=== PATIENT | male | born 1935 | race Caucasian/White ===

== ENCOUNTER 2019-10-04 01:39 | Day surgery (SDC) | payer MEDICARE, SELFPAY ==
[2019-09-20 08:46] VITALS: BMI 28.8
--- NOTE | 2019-10-02 16:13 | PM.IMHP ---
H&P: HPI History of Present Illness Chief complaint: Right Kidney Stone Narrative: Krishna Saldana is a 84 year old male who presented to the ER in mid-August, with hematuria. CT-abd/pelvis revealed an 11mm right ureteral stone at the right UVJ. The stone has failed to passed and he now presents for endoscopic manipulation. Review of Systems Constitutional: Constitutional: Denies chills, Denies fatigue, Denies fever(s) and Denies headache(s) Eyes: Eyes: Denies blurry vision ENT: Denies vertigo, Denies dizziness, Denies headache(s) and Denies sore throat Cardiovascular: Cardiovascular: Denies chest pain, Denies syncope, Denies lightheadedness, Denies palpitations, Denies dyspnea and Denies dyspnea on exertion Respiratory: Respiratory: Denies hemoptysis, Denies dyspnea and Denies dyspnea on exertion Gastrointestinal: Gastrointestinal: Denies melena, Denies bloating, Denies hematochezia, Denies change in bowel habits, Denies change in stool character, Denies constipation, Denies diarrhea and Denies vomiting Genitourinary: Genitourinary: Denies hematuria, Denies dysuria, Denies testicular pain, Denies urinary frequency, Denies urinary hesitancy and Denies urinary urgency Integumentary/Breasts: Skin/Breast: Denies pruritus, Denies lesions and Denies rash Neurologic: Denies confusion, Denies vertigo, Denies dizziness, Denies syncope and Denies headache(s) Psychiatric: Psychiatric: Denies anxiety, Denies change in appetite and Denies confusion Endocrine: Endocrine: Denies fatigue and Denies palpitations PMFSH Past Medical History Medical History Kidney stones Surgical History Surgical History No history of previous surgery Social History Social History Smoking status: Never smoker Gender identity (if verbalized by the patient): Male Meds Home Medications and Allergies Home Medications Medication Instructions Recorded Confirmed Type donepezil [Aricept] 10 mg PO HS 07/31/19 09/20/19 History hydrocodone-acetaminophen 1 tablet PO Q4H PRN #10 tablet 07/31/19 09/20/19 Rx levetiracetam [Keppra] 500 mg PO BID 07/31/19 09/20/19 History lisinopril 5 mg PO DAILY 07/31/19 09/20/19 History memantine 10 mg PO BID 07/31/19 09/20/19 History Allergies Allergy/AdvReac Type Severity Reaction Status Date / Time No Known Allergies Allergy Verified 09/20/19 08:37 Exam Const: General: healthy appearing, comfortable, no acute distress and well developed; No confusion Nutritional Appearance: well nourished Orientation/consciousness: patient oriented x3 and No confusion HENMT: Head: normocephalic and atraumatic Ears: external ears normal Face and sinus: normal facial exam Mouth: Yes lip normal Teeth and gingiva: dentition normal Eyes: General: appearance normal, both eyes and all related structures Alignment and Position: alignment normal Eyelids: eyelids normal Cornea: corneas normal Pupils: Equal, round and reactive pupils present EOM: EOMs intact bilaterally Neck: Neck: normal visual inspection, full ROM and no JVD Chest: Chest palpation & inspection: normal inspection of the chest Resp: Effort & Inspection: normal respiratory effort and no use of accessory muscles Auscultation: clear to auscultation bilaterally Cardio: Jugular venous distension: no JVD Rate: regular rate Rhythm: regular rhythm GI: Inspection: normal to inspection GI Palp: No abdominal tenderness, No Guarding due to palpation present (GI) and No Rebound tenderness present Auscultation: normal bowel sounds : General: Yes bladder normal to palpation and No CVA tenderness Back/Spine/Pelvis: Back: No CVA tenderness Skin: General skin exam: normal color and no rashes or lesions noted Neuro: General: patient oriented x3, no focal motor deficits and No confusion
[2019-10-04] VITALS (7 sets, daily range): BP systolic 108–136; BP diastolic 67–74; PULSE 50–58; RESP 12–20; TEMP 36.1–36.7; O2SAT 97–100
--- NOTE | 2019-10-04 06:36 | WPDHPUPDATE1 ---
History and Physical Update Update Date/Time: 10/04/19 06:36 History and Physical has been reviewed, including an updated exam of the patient. There are NO changes in the patient's condition. Risks, benefits, and alternatives have been discussed and questions answered. Patient agrees to proceed with procedure.
--- NOTE | 2019-10-04 07:07 | WPDANESEPPF ---
Anes - Initial Pre Proc Eval Procedure: Operation Date: 10/04/19 09:00 Proposed Procedures p Cystoscopy, Right Ureteroscopy, Right Stone Extraction - Ryan Nguyễn MD s Holmium Laser Lithotripsy - Ryan Nguyễn MD Date/Time: 10/04/19 07:07 Surgeon: Ryan Nguyễn MD Pre Op Diagnosis: Right Kidney Stone Patient Data Age: 84 Gender: M Height: 1.75 m Weight: 88.45 kg Allergies Allergy/AdvReac Type Severity Reaction Status Date / Time No Known Allergies Allergy Verified 09/20/19 08:37 Home Medications Medication Instructions Recorded Confirmed Type donepezil [Aricept] 10 mg PO HS 07/31/19 09/20/19 History hydrocodone-acetaminophen 1 tablet PO Q4H PRN #10 tablet 07/31/19 09/20/19 Rx levetiracetam [Keppra] 500 mg PO BID 07/31/19 09/20/19 History lisinopril 5 mg PO DAILY 07/31/19 09/20/19 History memantine 10 mg PO BID 07/31/19 09/20/19 History Patient hx anesthesia problems: none Family hx anesthesia problems: none PMFSH Past Medical History Medical History (Updated 10/04/19 @ 07:09 by Anthony Sutherland MD) Arthritis Dementia HTN (hypertension) Kidney stones Seizures DX 1999. LAST ONE 2016. TAKES KEPPRA Transient ischemic attack 1975 Surgical History Surgical History No history of previous surgery Social History Social History Smoking status: Never smoker Gender identity (if verbalized by the patient): Male Anes - Eval Final PreProcedure Day of Procedure 10/04/19 07:07 Patient weight: overweight Heart: regular rate and rhythm Lungs: clear to auscultation and normal air movement Airway: Mallampati scale class II Neurological: alert and oriented Last oral intake: >/= 8 hours ASA classification: III Emergent: no Anesthetic plan: proceed Anesthesia type and monitoring: general LMA Informed Consent: The patient's anesthetic plan and its attendant risks and benefits were discussed with the patient/family/POA. Questions were solicited and answers provided to the satisfaction of the patient/family/POA.
[2019-10-04] MEDS: LACTATED RINGERS 1,000 ML 30 ML IV CONT (07:18)
[2019-10-04] MEDS: ceFAZolin 2 GM/D5W 50 ML 2 GM/50 ML BAG IVPB (08:15)
[2019-10-04] MEDS: LIDOCAINE HCL 2% GEL UROJET 10 ML PKG MUCOUS MEM (08:35)
--- NOTE | 2019-10-04 08:44 | PM.PROC ---
Procedure Note - Detailed Date of procedure: 10/04/19 Pre-op diagnosis: Right Kidney Stone Post-op diagnosis: other (Bladder stone) Procedure performed: Cystoscopy with bladder stone extraction. Description of procedure: Patient is brought to the operative suite where he has prepped and draped in routine sterile fashion while in a dorsal lithotomy position after the uneventful induction of general LMA anesthetic. Nineteen F rigid cystoscope was placed in his urethra. He has no urethral strictures but I see his large, 1 cm calculus is now lodged in his prostatic urethra. The remainder of the bladder was endoscopically normal without additional foreign body or neoplasm. The bladder mucosa is without hyperemia or neoplasm. Using a 27 F resectoscope with loop I easily removed the urethral calcification. Because of the ease of this procedure and not to leave a White catheter. Patient tolerated the procedure well and was taken to the recovery room in good condition. Anesthesia: GLMA Surgeon: Ryan Nguyễn MD Estimated blood loss (mL): 0 Drains: No Packing: No Pathology: yes (Bladder stone) Complications: No immediate complications Condition: stable Disposition: other
--- NOTE | 2019-10-04 09:23 | SUR.PHASEI ---
0923; PT AWAKE AND ALERT. READY TO SEE FAMILY.
== END 2019-10-04 10:27 | disposition home or self-care (01) ==
PROVIDERS: PCP Family Medicine; Visit Provider Urology
PROC: (CPT 52352; principal; 2019-10-04 09:00)
DX: N21.0 Calculus in bladder (principal); I10 Essential (primary) hypertension; G40.909 Epilepsy, unspecified, not intractable, without status epilepticus; F03.90 Unspecified dementia, unspecified severity, without behavioral disturbance, psychotic disturbance, mood disturbance, and anxiety; M19.90 Unspecified osteoarthritis, unspecified site; Z86.73 Personal history of transient ischemic attack (TIA), and cerebral infarction without residual deficits
CPT/HCPCS: 52310; 82365; 88300; A9270; C1769; J0690; J1100; J2405; J2704; J3010; J7120

== ENCOUNTER 2021-01-21 13:34 | Emergency (ER) | payer MEDICARE, SELFPAY ==
--- NOTE | ~2021-01-21 | XR_ITS ---
EXAMINATION: XR chest 1V portable DATE: 01/21/2021 15:33 INDICATION: Dizziness. TECHNIQUE: A single frontal view of the chest was obtained. COMPARISON: Chest single view 11/24/2014, CT abdomen and pelvis 07/31/2019 FINDINGS: There is mild atelectasis at the lung bases. No pleural effusion or pneumothorax. The heart size is normal. There is a right shoulder arthroplasty. IMPRESSION: 1. Mild atelectasis at the lung bases. Reviewed, dictated and finalized at location A.
--- NOTE | ~2021-01-21 | CT_ITS ---
EXAMINATION: CT brain wo con DATE: 01/21/2021 15:24 INDICATION: Dizziness TECHNIQUE: Computed tomography (CT) of the head was performed without intravenous contrast. The dose- length product was 529.67 mGy-cm. Automated exposure control and iterative reconstruction technique w ere employed. COMPARISON: CT dated 01/30/2017 FINDINGS: No acute intracranial hemorrhage, infarction, mass or mass effect. No ventriculomegaly or m idline shift. Basilar cisterns are patent. There are scattered mild periventricular and subcortical w elton matter changes, most likely related to small vessel ischemic disease (microangiopathy). There is mild mucosal thickening of the ethmoid sinuses. Mastoids are pneumatized. No depressed skull fractur e. IMPRESSION: 1. No acute intracranial abnormality. 2: Chronic age-related findings. Reviewed, dictated and finalized at location B.
--- NOTE | 2021-01-21 13:36 | ECG_ITS ---
Measurements Intervals [place] Rate: 47 P: 67 GA: 166 QRS: 38 QRSD: 89 T: 50 QT: 452 QTc: 402 Interpretive Statements SINUS BRADYCARDIA EARLY PRECORDIAL R/S TRANSITION BASELINE ARTIFACT- I, II, III, AVR, AVL, V3 ABNORMAL ECG Electronically Signed On 01-21-2021 13:50:36 CDT by Ruben Guerrero D.O.
[2021-01-21 13:38] VITALS: BP 127/78; PULSE 49; RESP 16; TEMP 35.9; O2SAT 99
[2021-01-21 14:04] LABS: Basophils Absolute Auto 0.1 K/mm3 (0.0-0.1); Basophils Percent Auto 0.9 % (0.2-1.2); Eosinophils Absolute Auto 0.6 K/mm3 (0-0.3); Eosinophils Percent Auto 8.7 % (0-4.4); Hematocrit 42.2 % (42.0-52.0); Immature Granulocyte Absolute 0.03 K/mm3 (0.00-0.031); Immature Granulocyte Percent A 0.4 % (0-0.5); Lymphocytes Absolute Auto 0.98 K/mm3 (0.9-3.2); Lymphocytes Percent Auto 14.4 % (18.3-44.2); Mean Corpuscular HGB Conc 33.2 g/dl (32-36); Mean Corpuscular Hemoglobin 31.9 pg (26-34); Mean Corpuscular Volume 96.1 fl (80-100); Mean Platelet Volume 10.2 fl (7.4-10.4); Monocytes Absolute Auto 0.6 K/mm3 (0.1-0.6); Monocytes Percent Auto 9.4 % (2.6-8.5); Neutrophils Absolute Auto 4.5 K/mm3 (1.3-6.7); Neutrophils Percent Auto 66.2 % (45.5-73.1); Platelet Count Result 197 k/mm3 (150-375); Red Blood Count 4.39 M/mm3 (4.6-6.20); Red Cell Distribution Width 12.8 % (11.5-14.5); White Blood Count 6.8 K/mm3 (4.5-10.0)
[2021-01-21 14:14] LABS: Alanine Aminotransferase 21 U/L (4-50); Albumin Level 4.1 g/dL (3.5-5.1); Alkaline Phosphatase 80 U/L (38-126); Anion Gap 6 mmol/L (8-16); Aspartate Amino Transferase 34 U/L (17-59); Bilirubin,Total 0.7 mg/dL (0.2-1.3); Blood Urea Nitrogen 13 mg/dL (9-20); Calcium 10.2 mg/dL (8.4-10.2); Carbon Dioxide 27 mmol/L (22-30); Chloride 107 mmol/L (98-107); Estimated CRCL calculation 56 ml/min; Estimated Glomerular Filt Rate > 60; Glucose 106 mg/dL (75-110); Potassium 4.3 mmol/L (3.4-5.0); Sodium 140 mmol/L (137-145)
--- NOTE | 2021-01-21 14:59 | ED.DIZZY ---
HPI - Dizziness General Chief Complaint: Dizziness Stated Complaint: dizzy Time Seen by Provider: 01/21/21 14:38 Source: RN notes reviewed History of Present Illness HPI Narrative: Patient presents to emergency department from home for dizziness. Patient states the dizziness began approximately 2 hours ago states is worse with and he stands up in the room is spinning improved when he lays down states he has had intermittent issues over the past several weeks with dizziness but worse today he denies any numbness or tingling in extremities, vision changes, chest pain, shortness of breath or any other symptoms patient states that currently laying in bed he has no dizziness at this time Related Data Home Medications Medication Instructions Recorded Confirmed donepezil [Aricept] 10 mg PO HS 07/31/19 10/04/19 levetiracetam [Keppra] 500 mg PO BID 07/31/19 10/04/19 lisinopril 5 mg PO DAILY 07/31/19 10/04/19 memantine 10 mg PO BID 07/31/19 09/20/19 Allergies Allergy/AdvReac Type Severity Reaction Status Date / Time No Known Allergies Allergy Verified 09/20/19 08:37 Review of Systems Review of Systems: Narrative: Gen.: Denies fevers or chills Eyes: Denies eye pain or visual change ENT: Denies congestion Respiratory: Denies shortness of breath or cough CV: Denies chest pain or palpitations GI: Denies abdominal pain nausea, emesis or diarrhea Musculoskeletal: Denies back pain or muscle pain Neuro: See HPI Skin: Denies rash Except as documented, all other systems reviewed and negative PMFSH Past Medical History Medical History Arthritis Dementia HTN (hypertension) Kidney stones Seizures DX 1999. LAST ONE 2016. TAKES KEPPRA Transient ischemic attack 1975 Surgical History Surgical History No history of previous surgery Social History Social History Smoking status: Never smoker Gender identity (if verbalized by the patient): Male Exam Narrative: Exam Narrative: APPEARANCE: No acute distress, nontoxic, resting in bed HEENT: Normocephalic, atraumatic, OMM, TMs clear bilaterally EYES: PERRL, EOMI NECK: Supple, nontender, full range of motion without pain, no meningismus RESPIRATORY: No respiratory distress, clear to auscultation bilaterally with no rhonchi wheezing or rales CARDIOVASCULAR: RRR s murmur ABDOMINAL: Soft, nontender, nondistended MUSCULOSKELETAL: Moves all extremities. No clubbing, cyanosis or edema. NEURO: A and O ?3, following commands, speech normal, no facial droop,muscle strength 5 out of 5 bilateral upper and lower extremities SKIN:: Warm, dry. Normal Color PSYCHIATRIC: Normal affect/mood Course Course Emergency Course: Old record of the patient's bradycardia is consistent with prior Patient will get up and ambulate in the emergency department with no dizziness Long discussion with patient and it appears the patient's been having arm and episodes of dizziness for the past 3 to 4 months he has had no formal work-up for this I discussed with him following up with ENT patient has questionable UTI will start antibiotics and sent with meclizine Discussed with patient results of workup and diagnosis. Discussed need for follow-up with primary care, proper use of medication, and reasons to return to the emergency department. Patient understands and agrees to current treatment plan Vital Signs Vital signs: Vital Signs Temperature 96.7 F L 01/21/21 13:38 Pulse Rate 49 L 01/21/21 13:38 Respiratory Rate 16 01/21/21 13:38 Blood Pressure 127/78 01/21/21 13:38 Pulse Oximetry 99 01/21/21 13:38 Temperature 97.7 F 01/21/21 15:02 Pulse Rate 82 01/21/21 17:08 Respiratory Rate 20 01/21/21 17:08 Blood Pressure 113/67 01/21/21 17:08 Pulse Oximetry 93 01/21/21 17:08 MDM - Dizziness MDM Narrative Medica
[2021-01-21 15:02] VITALS: TEMP 36.5
[2021-01-21] MEDS: MECLIZINE HCL 12.5 MG TABLET PO (15:07)
[2021-01-21 15:25] VITALS: BP 123/84; PULSE 64
[2021-01-21 15:41] LABS: Add Urine Microscopic? YES; Appearance Urine Cloudy (Clear); Bacteria Urine Trace /hpf; Bilirubin Urine Negative (Negative); Blood Urine 3+ (Negative); Calcium Oxalate Crystals Urine Present /hpf; Color Urine Yellow (Yellow); Glucose Urine UA Negative (Negative); Ketones Urine Trace mg/dL (Negative); Leukocyte Esterase Ur Trace LEU/UL (Negative); Mucus Urine Heavy /lpf; Nitrate Urine Negative (Negative); Protein Urine 2+ mg/dL (Negative); RBC Urine >75 /hpf (0-2); Specific Grav Ur 1.026 (1.001-1.035); Squamous Epithelial Cell Urine Rare /hpf (Few)
[2021-01-21 17:08] VITALS: BP 113/67; PULSE 82; RESP 20; O2SAT 93
--- NOTE | 2021-01-21 17:09 | PC.NURSE ---
Patient ambulated with assistance, ER aware
[2021-01-21] MEDS: CIPROFLOXACIN 500 MG TAB PO (17:30)
[2021-01-21 17:41] VITALS: BP 126/73; PULSE 86; RESP 20; O2SAT 93
== END 2021-01-21 17:41 | disposition home or self-care (01) ==
PROVIDERS: Emergency Medicine; Emergency Provider Emergency Medicine; PCP Family Medicine
DX: N39.0 Urinary tract infection, site not specified (principal); R42 Dizziness and giddiness; I10 Essential (primary) hypertension; Z86.73 Personal history of transient ischemic attack (TIA), and cerebral infarction without residual deficits; G40.909 Epilepsy, unspecified, not intractable, without status epilepticus; F03.90 Unspecified dementia, unspecified severity, without behavioral disturbance, psychotic disturbance, mood disturbance, and anxiety
CPT/HCPCS: 36415; 70450; 71045; 80053; 81001; 85025; 87086; 93005; 99284; A9270

== ENCOUNTER 2021-09-29 08:51 | Outpatient (CLI) | payer MEDICARE, SELFPAY ==
--- NOTE | ~2021-09-29 | CT_ITS ---
EXAMINATION: CT abdomen pelvis wo/w con EXAM DATE: 09/29/2021 09:50 INDICATION: Hematuria. TECHNIQUE: Spiral CT of the abdomen and pelvis was performed without contrast. The patient was then injected with small bolus intravenous Omnipaque 350, followed by delay of approximately 10 minutes to allow collecting system to opacify. A post contrast scan abdomen and pelvis was performed during inj ection of remaining contrast. A total of 130 cc intravenous contrast was administered. The dose-dariela th product (DLP) for this examination was 1708.44 mGy-cm. The exposure was tailored according to pat ient size (auto mA exposure control), and iterative reconstruction (ASIR) was used as additional dose reduction technique. Comparison is made to prior examination from 07/31/2019. FINDINGS: There is a 2.1 cm calcification in the distal aspect of the left ureter, with moderate hydr oureter, but no caliectasis or delayed nephrogram. Does not appear to be obstructing at present. Petr tional right inferior calyceal stone or stones measuring 1.1 cm. There are bilateral renal cysts, lar gest on the right side. The kidneys enhance symmetrically. There are no suspicious renal lesions. The calyces and opacified portions of ureters are unremarkable, without filling defects or focal susp icious strictures. Some diffuse bladder wall thickening, could indicate chronic cystitis. Acute cyst itis not excludable. There is moderate prostatomegaly, prostate measuring 6 cm. The liver, spleen, adrenal glands and pancreas are unremarkable. Gallbladder is unremarkable. No bi liary obstruction. There is no retroperitoneal or pelvic lymphadenopathy. There is mild to moderat e scattered arteriosclerotic disease. No findings to suggest acute appendicitis.. There is moderate colonic diverticulosis. There is no ad jacent inflammatory change to suggest diverticulitis. The stomach and small bowel are unremarkable. There is expected amount of colonic stool. No free intraperitoneal gas. The heart is normal in si ze. There are no pericardial or pleural effusions. The lung bases are unremarkable. Moderate lumba r dextroscoliosis, moderate to severe disc disease. There are no osteoblastic or osteolytic lesions i dentified. 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 IMPRESSION: 1. Distal left ureteral 2 cm stone, moderate hydroureter but no caliectasis or delayed nephrogram. 2. Large right nephrolithiasis. 3. Moderate prostatomegaly. Chronic cystitis. 4. Moderate colonic diverticulosis. 5. Moderate lumbar dextroscoliosis. Reviewed, dictated and finalized at location B. ER HAND
--- NOTE | ~2021-09-29 | XR_ITS ---
EXAMINATION: XR abdomen/kub 1V EXAM DATE: 09/29/2021 09:10 INDICATION: Follow-up hematuria. TECHNIQUE: Frontal projection(s) of the abdomen for interpretation. Correlation is made to CT scan sa me date. Compared to prior x-ray from 08/06/2019 FINDINGS: There is a distal left ureteral 2 cm stone identified, increased in size compared to prior study. This was present on previous examination but has increased substantially in size. There is mo derate lumbar dextroscoliosis. Large right nephrolithiasis. Nonobstructive bowel gas pattern. IMPRESSION: 1. Large left distal ureteral stone identified. 2. Right nephrolithiasis. Reviewed, dictated and finalized at location G. GIOUS ACTIVITIES DIRECTOR
[2021-09-29 09:31] LABS: Estimated Glomerular Filt Rate > 60
== END 2021-09-29 08:52 | disposition home or self-care (01) ==
PROVIDERS: PCP Family Medicine; Visit Provider Nurse Practitioner Adult Health
DX: R31.9 Hematuria, unspecified (principal); N20.1 Calculus of ureter; N20.0 Calculus of kidney; N40.0 Benign prostatic hyperplasia without lower urinary tract symptoms; N30.21 Other chronic cystitis with hematuria; K57.90 Diverticulosis of intestine, part unspecified, without perforation or abscess without bleeding; M41.86 Other forms of scoliosis, lumbar region
CPT/HCPCS: 74018; 74178; Q9967

== ENCOUNTER 2021-10-01 00:54 | Day surgery (SDC) | payer MEDICARE, SELFPAY ==
[2021-09-30 12:19] VITALS: BMI 28.7
--- NOTE | 2021-09-30 13:32 | PC.NURSE ---
Report to the Outpatient Waiting Room, entrance under the green pavilion located off [facility], at time __0845 on date __10/01/21 . OR Time: ____1044 - You and your visitor will be asked a series of questions to screen for COVID 19 for your protection. - A mask is required within the hospital. Preoperative COVID Testing Requirements: No COVID Test needed if: (proof is required; if not received patient will have Rapid Test prior to entry) - Patient has received COVID Vaccine at least 14 days prior to procedure date or - Patient has positive COVID test result within last 90 days of surgery date. COVID Test needed if above criteria is not met If not COVID vaccinated a COVID test must be conducted within 72 hours of surgery and patient is asked to isolate self from time of testing until procedure. You will go to the [employer] [facility] for your COVID testing. The [employer] [facility] is located at the corner of [address] [facility]. You will only be called if COVID results are positive and your surgeon may reschedule your elective surgery date. Patients may have clear liquids (water, carbonated beverages, clear teas, apple juice) until 3 hours prior to surgery (0745 AM) with a maximum of 20 ounces. - No food from midnight until time of surgery - Infants may have breast milk until 4 hours before surgery, formula 6 hours prior to surgery. - Children will be allowed to drink immediately following surgery. If applicable, please bring a bottle or sippy cup to assist with drinking. Juice, water, soda, and popsicles are readily available. For infants on formula, please bring formula the day of surgery. Pacifiers are allowed. Take the following medications with a SIP of water the morning of surgery: __KEPPRA, MEMANTINE, PAIN PILL IF NEEDED__ Medications to discontinue per physician NONE Date to take last dose Please no make-up, nail occitan, hairspray, perfume, deodorant, or body powder the day of surgery. No jewelry (including any body piercings) or valuables the day of surgery, leave them at home. Please take a shower or bath the night before, or the morning of, surgery with an antibacterial soap. Wear comfortable, loose fitting clothing. Children are encouraged to wear pajamas. - Jewelry must be removed prior to entering the operating room. Rings and piercings that are not removed may be cut off. - The hospital will not accept responsibility for valuables. - Please leave all valuables, including medications, at home the day of surgery. If you are going home after surgery, a licensed bung driver must drive you home. - NO public transportation without another adult. - We recommend that an adult stay with you for 24 hours following discharge. - We also recommend that you do not drive, make important decision, drink alcoholic beverages, or take any drugs that were not prescribed by your health care provider for at least 24 hours after your discharge time. For Pediatric surgeries, we recommend two adults accompany the child home (only one inside the building at this time). One visitor will be allowed to accompany the patient into the hospital. Patients visitor will be instructed to remain with patient at all times or leave the building. We will allow the visitor to come back to the postoperative area when patient is ready. Follow any additional instructions given to you from your surgeon. Telephone instructions given to _PT'S SPOUSE and asked if any additional questions and then verbalized understanding. Patient advised to call surgeon office or pre surgery nurse liaison [phone] if any additional questions.
[2021-10-01] VITALS (11 sets, daily range): BP systolic 100–132; BP diastolic 56–77; PULSE 50–76; RESP 14–18; TEMP 36.4; O2SAT 96–100
--- NOTE | ~2021-10-01 | XR_ITS ---
EXAMINATION: XR retrograde pyelo w/stent LT EXAM DATE: 10/01/2021 11:25 INDICATION: LT RETRO/STENT STONE EXTRACTION . TECHNIQUE: Fluoroscopy used during XR retrograde pyelo w/stent LT performed by Dr. Ryan Nguyễn MD, urologist. The radiologist Jeff Fleming M.D. dictating this report of the image(s) available wa s not present for the procedure. Total fluoroscopic time of 39 seconds. The DAP for this procedure was 0.7 mGym2.cGycm2.radcm2. A total of 48 images sent to PACS from the exam. Cine run(s) available for review. Correlation is made to KUB from 09/29/2021. FINDINGS: Large left distal ureteral stone identified. Left ureter was cannulated and injected. There is severe left hydroureter. A double-J ureteral stent was placed. Correlate with procedure note. IMPRESSION: Distal left ureteral stone, severe hydroureter. Stent in position. Reviewed, dictated and finalized at location B. POSTING REPRESENTATIVE
--- NOTE | 2021-10-01 06:28 | WPDHPUPDATE1 ---
History and Physical Update Update Date/Time: 10/01/21 06:28 History and Physical has been reviewed, including an updated exam of the patient. There are NO changes in the patient's condition. Risks, benefits, and alternatives have been discussed and questions answered. Patient agrees to proceed with procedure.
[2021-10-01] MEDS: LACTATED RINGERS 1,000 ML 30 ML IV CONT ×2 (09:36→11:07)
--- NOTE | 2021-10-01 09:40 | WPDANESEPP ---
Anes - Eval Pre Procedure Procedure: Operation Date: 10/01/21 10:45 Proposed Procedures p Cystoscopy, Left Ureteroscopy, Left Retrograde Pyelogram, Left Stone Extraction, Left Stent Placement. - Ryan Nguyễn MD s Possible Holmium Laser Procedure - Ryan Nguyễn MD <Rohan Casas CRNA - Last Filed: 10/01/21 09:42> Date/Time: 10/01/21 09:40 <Rohan Casas CRNA - Last Filed: 10/01/21 09:42> Pre Op Diagnosis: left ureteral stone <Rohan Casas CRNA - Last Filed: 10/01/21 09:42> Patient Data Age: 86 Gender: M Height: 1.75 m Weight: 88.18 kg <Rohan Casas CRNA - Last Filed: 10/01/21 09:42> Allergies Allergy/AdvReac Type Severity Reaction Status Date / Time No Known Allergies Allergy Verified 10/01/21 09:43 <Rohan Casas CRNA - Last Filed: 10/01/21 09:42> Home Medications Medication Instructions Recorded Confirmed Type donepezil [Aricept] 10 mg PO HS 07/31/19 10/01/21 History levetiracetam [Keppra] 500 mg PO BID 07/31/19 10/01/21 History lisinopril 5 mg PO QAM 07/31/19 10/01/21 History memantine 10 mg PO BID 07/31/19 10/01/21 History hydrocodone-acetaminophen 1 - 2 tablet PO Q6H PRN #20 tablet 10/04/19 10/01/21 Rx <Rohan Casas CRNA - Last Filed: 10/01/21 09:42> Patient hx anesthesia problems: none <Olaf Molina MD - Last Filed: 10/01/21 09:53> Family hx anesthesia problems: none <Olaf Molina MD - Last Filed: 10/01/21 09:53> Results Review: All pre-operative results and documents have been reviewed as part of the pre-operative evaluation. <Rohan Casas CRNA - Last Filed: 10/01/21 09:42> [facility] Past Medical History Medical History: Medical History Arthritis Dementia Hearing loss, bilateral HTN (hypertension) Kidney stones Seizures DX 2000. LAST ONE 2017. TAKES KEPPRA Transient ischemic attack 1974 <Rohan Casas CRNA - Last Filed: 10/01/21 09:42> Surgical History Surgical History: Surgical History No history of previous surgery <Rohan Casas CRNA - Last Filed: 10/01/21 09:42> Social History Social History: Social History Smoking status: Never smoker Second hand tobacco smoke exposure: No Alcohol intake: never Substance use: never Substance use type: does not use Living arrangements: with family Gender identity (if verbalized by the patient): Male Spiritual care concerns: No <Rohan Casas CRNA - Last Filed: 10/01/21 09:42> Exam Day of Procedure 10/01/21 09:40 <Rohan Casas CRNA - Last Filed: 10/01/21 09:42> Patient weight: overweight <Olaf Molina MD - Last Filed: 10/01/21 09:53> Heart: regular rate and rhythm <Olaf Molina MD - Last Filed: 10/01/21 09:53> Lungs: clear to auscultation <Olaf Molina MD - Last Filed: 10/01/21 09:53> Airway: Mallampati scale class II <Olaf Molina MD - Last Filed: 10/01/21 09:53> Neurological: other (alert) <Olaf Molina MD - Last Filed: 10/01/21 09:53>
[2021-10-01] MEDS: ceFAZolin 2 GM/D5W 50 ML 2 GM/50 ML BAG IVPB (09:53)
--- NOTE | 2021-10-01 09:53 | WPDANESEFPP ---
Anes - Eval Final PreProcedure Day of Procedure 10/01/21 09:53 Patient weight: overweight Heart: regular rate and rhythm Lungs: clear to auscultation Airway: Mallampati scale class II Neurological: other (alert) Last oral intake: >/= 8 hours ASA classification: III Emergent: no Anesthetic plan: proceed Anesthesia type and monitoring: general LMA and standard monitoring Results Review: All pre-operative results and documents have been reviewed as part of the pre-operative evaluation. Informed Consent: The patient's anesthetic plan and its attendant risks and benefits were discussed with the patient/family/POA. Questions were solicited and answers provided to the satisfaction of the patient/family/POA.
--- NOTE | 2021-10-01 11:04 | W.PM.PROC2 ---
Procedure Note - Detailed Date of Procedure 10/01/21 Pre-op Diagnosis Left ureteral stone Post-op Diagnosis Same Procedure Performed Cystoscopy, left ureteroscopy with laser lithotripsy, stone extraction, retrograde pyelogram and left stent placement Surgeon Ryan Nguyễn MD Anesthesia General Description of Procedure The patient was brought to the operative suite where he is prepped and draped in a routine sterile fashion while in the dorsal lithotomy position after the uneventful induction of a general LMA anesthetic. A 19F rigid cystoscope was placed in the bladder. There are no urethral strictures. His prostatic urethra measures, approximately, 3.0cm with moderate median lobe enlargement. The bladder mucosa was endoscopically normal without hyperemia or neoplasm. There was a single, orthotopic ureteral orifice bilaterally. A 0.035 glidewire was advanced into the left renal pelvis under fluoroscopy. The distal ureter was dilated with an 8F/10F ureteral dilator. Ureteroscopy was undertaken with a short tapered semi-rigid ureteroscope. During ureteroscopy I fractured the very large stone (1-1.5cm) into smaller pieces using a 273 micron Holmium laser fiber with the Holmium laser. I was able to then extract all sizeable stone pieces using a 1.9F Escape, Nitinol, disposable stone basket. Due to the extent of this manipulation I did place a 4.8F double-J ureteral stent. The proximal coil of the stent was confirmed to be in the renal pelvis and the distal coil in the bladder. The patient's bladder was emptied and he was taken to the recovery room having tolerated this procedure well. Drains Yes Packing No Pathology Yes Complications No immediate complications Condition Stable Disposition PACU
--- NOTE | 2021-10-01 11:33 | SUR.PHASEI ---
1120; SMITH IS DRY AND EMPTY. SLIGHT BLEEDING FROM PENIS. ABDOMEN SOFT. DR DELANEY WALKED THRU PACU. NOTIFIED HIM OF DRY SMITH. WILL IRRIGATE WITH NS
[2021-10-01] MEDS: fentaNYL CITRATE INJ (*CRX) 100 MCG/2 ML VIAL 25 MCG IV PUSH ×4 (11:48→12:16)
--- NOTE | 2021-10-01 12:19 | SUR.PHASEI ---
PT MOANING AND GRIMACING MUCH LESS NOW. STATES PAIN TO PENIS IMPROVING
--- NOTE | 2021-10-01 12:24 | SUR.PHASEI ---
DR DELANEY AT BEDSIDE OBSERVING SMITH. KRISHNA URINE. NO CLOTS NOTED. DR DELANEY STATES SMITH MAY BE DC'D PRIOR TO GOING HOME TODAY. PT AWAKE. STATES PAIN MUCH BETTER NOW AND TOLERABLE.
--- NOTE | 2021-10-01 12:38 | SUR.PHASEI ---
SARAH DC'D INTACT
--- NOTE | 2021-10-17 13:56 | WPDURCON ---
Assessment and Plan Additional Plan 86M with UTI, urinary retention, bilateral ureteral stones, renal failure - proceed with cystoscopy with bilateral ureteral stent placement; will delay definitive stone treatment until his labs have stabilized and his infection can be treated - patient seems to understand and agree with plan; I tried to reach at [phone] but says number disconnected; she was here with him earlier and aware of plan [facility] Consult Note HPI Date Seen: 10/17/21 Requesting Physician: Dr. Moise, ED Primary Care Provider: Srinivasa Macias MD Consult Narrative Narrative: Krishna Saldana is a 86 year old male s/p left URS a few weeks ago with Dr Nguyễn. Came to ED. Bladder extremely full with bilateral hydro and bilateral distal ureteral stones. Catheter has been placed. Urine clearly infected. He's in renal failure with a creatinine of 4.5 (baseline 1.0 from about two weeks ago). Review of Systems Review of Systems: ROS unobtainable: Yes unobtainable due to mental status PMFSH Past Medical History Medical History Arthritis Dementia Hearing loss, bilateral HTN (hypertension) Kidney stones Seizures DX 1999. LAST ONE 2016. TAKES KEPPRA Transient ischemic attack 1974 Surgical History Surgical History No history of previous surgery Social History Social History Smoking status: Never smoker Second hand tobacco smoke exposure: No Alcohol intake: never Substance use: never Substance use type: does not use Gender identity (if verbalized by the patient): Male Spiritual care concerns: No Meds Home Medications and Allergies Home Medications Medication Instructions Recorded Confirmed Type donepezil [Aricept] 10 mg PO HS 07/31/19 10/01/21 History levetiracetam [Keppra] 500 mg PO BID 07/31/19 10/01/21 History lisinopril 5 mg PO QAM 07/31/19 10/01/21 History memantine 10 mg PO BID 07/31/19 10/01/21 History hydrocodone-acetaminophen 1 - 2 tablet PO Q6H PRN #20 tablet 10/04/19 10/01/21 Rx cephalexin 500 mg PO Q8H #9 cap 10/01/21 Rx hydrocodone-acetaminophen 1 - 2 tablet PO Q6H PRN #20 tablet 10/01/21 Rx Allergies Allergy/AdvReac Type Severity Reaction Status Date / Time No Known Allergies Allergy Verified 10/17/21 10:56 Exam Const: General: cooperative, healthy appearing, comfortable, no acute distress, alert and confusion (oriented to place and year, not month) Urinary Catheter: Urinary Catheter: patent and draining and urine cloudy
--- NOTE | 2021-10-17 14:01 | CONS_ITS ---
This report was moved to the correct visit, on 10/19/2021. Original report was signed by Manuel Lopez MD on 10/17/21 1401. Assessment and Plan Additional Plan 86M with UTI, urinary retention, bilateral ureteral stones, renal failure - proceed with cystoscopy with bilateral ureteral stent placement; will delay definitive stone treatment until his labs have stabilized and his infection can be treated - patient seems to understand and agree with plan; I tried to reach at [phone] but says number disconnected; she was here with him earlier and aware of plan [facility] Consult Note HPI Date Seen: 10/17/21 Requesting Physician: Dr. Moise, ED Primary Care Provider: Srinivasa Macias MD Consult Narrative Narrative: Krishna Saldana is a 86 year old male s/p left URS a few weeks ago with Dr Nguyễn. Came to ED. Bladder extremely full with bilateral hydro and bilateral distal ureteral stones. Catheter has been placed. Urine clearly infected. He's in renal failure with a creatinine of 4.5 (baseline 1.0 from about two weeks ago). Review of Systems Review of Systems: ROS unobtainable: Yes unobtainable due to mental status PMFSH Past Medical History Medical History Arthritis Dementia Hearing loss, bilateral HTN (hypertension) Kidney stones Seizures DX 1999. LAST ONE 2016. TAKES KEPPRA Transient ischemic attack 1974 Surgical History Surgical History No history of previous surgery Social History Social History Smoking status: Never smoker Second hand tobacco smoke exposure: No Alcohol intake: never Substance use: never Substance use type: does not use Gender identity (if verbalized by the patient): Male Spiritual care concerns: No Meds Home Medications and Allergies Home Medications Medication Instructions Recorded Confirmed Type donepezil [Aricept] 10 mg PO HS 07/31/19 10/01/21 History levetiracetam [Keppra] 500 mg PO BID 07/31/19 10/01/21 History lisinopril 5 mg PO QAM 07/31/19 10/01/21 History memantine 10 mg PO BID 07/31/19 10/01/21 History hydrocodone-acetaminophen 1 - 2 tablet PO Q6H PRN #20 tablet 10/04/19 10/01/21 Rx cephalexin 500 mg PO Q8H #9 cap 10/01/21 Rx hydrocodone-acetaminophen 1 - 2 tablet PO Q6H PRN #20 tablet 10/01/21 Rx Allergies Allergy/AdvReac Type Severity Reaction Status Date / Time No Known Allergies Allergy Verified 10/17/21 10:56 Exam Const: General: cooperative, healthy appearing, comfortable, no acute distress, alert and confusion (oriented to place and year, not month) Urinary Catheter: Urinary Catheter: patent and draining and urine cloudy This dictation may have been done utilizing a voice recognition system. Attempts have been made to correct errors. However, there may be uncorrected grammatical, spelling, and recognition errors present. Report Initialized date/time: Manuel Lopez MD 10/17/21 / 1401 Electronically signed by: Manuel Lopez MD 10/17/21 1401 [facility]
--- NOTE | 2021-10-17 14:33 | W.PM.PROC2 ---
Procedure Note - Detailed Date of Procedure 10/17/21 Pre-op Diagnosis bilateral ureteral stones Post-op Diagnosis Same Procedure Performed Cystoscopy, bilateral ureteral stent placement Surgeon Manuel Lopez MD Anesthesia General Indications Bilateral hydro, bilateral ureteral stones, renal failure Description of Procedure Patient was brought back to the OR. Ceftriaxone had been administered. He was prepped and draped and placed under general anesthesia given his breakfast this morning. Fajardo was removed. Rigid cystoscope was advanced into bladder. Urethra unremarkable. Prostate moderately enlarged. Bladder clearly infected. Left UO was identified and a glidewire was advanced into renal pelvis after some tortuosity was worked out. 6F variable length stent was advanced over wire with good curl noted. Procedure was repeated on right side. No complications. Fajardo replaced. Patient sent to recovery. Implants Bilateral 6Fxvariable stents, fajardo catheter Complications No immediate complications Disposition Floor
== END 2021-10-01 13:39 | disposition home or self-care (01) ==
PROVIDERS: PCP Family Medicine; Visit Provider Urology
PROC: (CPT 52352; principal; 2021-10-01 10:45)
PROC: (CPT 52356; 2021-10-01 10:45)
DX: N13.2 Hydronephrosis with renal and ureteral calculous obstruction (principal); I10 Essential (primary) hypertension; F03.90 Unspecified dementia, unspecified severity, without behavioral disturbance, psychotic disturbance, mood disturbance, and anxiety; G40.909 Epilepsy, unspecified, not intractable, without status epilepticus; Z86.73 Personal history of transient ischemic attack (TIA), and cerebral infarction without residual deficits
CPT/HCPCS: 52356; 74420; 82365; 88300; A9270; C1769; C2617; J0690; J1100; J2405; J2704; J3010; J7120; Q9966

== ENCOUNTER 2021-10-17 10:49 | Inpatient (IN) | payer MEDICARE, SELFPAY ==
[2021-10-17] VITALS (19 sets, daily range): BP systolic 100–138; BP diastolic 58–77; PULSE 66–94; RESP 12–20; TEMP 36.1–36.8; O2SAT 92–100
--- NOTE | ~2021-10-17 | XR_ITS ---
EXAMINATION: XR chest 2V DATE: 10/23/2021 13:19 INDICATION: Persistent leukocytosis TECHNIQUE: AP and lateral views of the chest are obtained. COMPARISON: 10/17/2021 FINDINGS: The lungs are free of acute opacities. There are small pleural effusions. No pneumothorax i s identified. Changes of right shoulder arthroplasty are noted. The cardiomediastinal silhouette is n ormal. There is mild thoracic spondylosis. IMPRESSION: 1. Small pleural effusions. Reviewed, dictated and finalized at location B. IMPRESSION: 1. Small pleural effusions.
--- NOTE | ~2021-10-17 | CT_ITS ---
EXAMINATION: CT chest abdomen pelvis wo con EXAM DATE: 10/24/2021 20:47 INDICATION: Worsening leukocytosis. TECHNIQUE: Spiral CT of the chest, abdomen and pelvis was performed without contrast. Axial, martin l and sagittal images chest, abdomen and pelvis were reviewed. Coronal maximum intensity pixel image s of chest reviewed. The dose-length product (DLP) for this examination was 1290.91 mGy-cm. The exp osure was tailored according to patient size (auto mA exposure control), and iterative reconstruction (ASIR) was used as additional dose reduction technique. Compared to prior CT abdomen pelvis exam . FINDINGS: CHEST: The lungs are clear. There are no pleural or pericardial effusions. Tracheobronchial tree is patent. There is no mediastinal, hilar or axillary lymphadenopathy. There is no pneumothorax. Heart normal in size. There is moderate coronary arterial calcification, arterial sclerosis. ABDOMEN PELVIS: The liver, spleen, adrenal glands and pancreas are unremarkable. Gallbladder is unre markable. No biliary obstruction. There are bilateral double-J ureteral stents in expected position. There is moderate to severe right-sided and moderate left-sided hydroureteronephrosis. There are mul tiple stones layering in the dependent aspect of both distal ureters. Right renal cyst measuring 4 cm . Prostate measures 8.3 cm in transverse dimensions, moderately enlarged. Bladder is severely distende d, possible bladder outlet obstruction from BPH. There is no retroperitoneal or pelvic lymphadenopat hy. The appendix is not positively visualized. There is no pericecal inflammatory change to suggest appe ndicitis. Small proximal jejunal diverticulum. Stomach is unremarkable. No small bowel obstruction. There is colonic fluid, correlate for diarrhea. There is been interval development of mild inflamma tion surrounding the descending/sigmoid colonic junction which could be acute uncomplicated diverticu litis. No free intraperitoneal gas. There is moderate right-sided lumbar dextroscoliosis. IMPRESSION: 1. Interval development of mild inflammation surrounding the descending/sigmoid colonic diverticula consistent with acute uncomplicated diverticulitis. 2. Bilateral ureteral stents in position. Stones in dependent aspects of both ureters distally. Mode rate to severe right, moderate left hydronephrosis. 3. Moderate prostatomegaly with severely distended bladder. Consider BPH, outlet obstruction. Reviewed, dictated and finalized at location G. IMPRESSION: 1. Interval development of mild inflammation surrounding the descending/sigmoi d colonic diverticula consistent with acute uncomplicated diverticulitis. 2. Bilateral ureteral stents in position. Stones in dependent aspects of both ureters distally. Moderate to severe right, moderate left hydronephrosis. 3. Moderate prostatomegaly with severely distended bladder. Consider BPH, outl et obstruction.
--- NOTE | ~2021-10-17 | XR_ITS ---
EXAMINATION: XR chest 1V portable 10/17/2021 11:06 INDICATION: Altered mental status. Weakness. PROCEDURE: AP portable chest COMPARISON: Comparison to multiple prior studies sequentially, with oldest reviewed study dated 11/22. FINDINGS: The lungs are clear. The cardiomediastinal silhouette is within normal limits. There are no pleural effusions. There is no pneumothorax suspected. IMPRESSION: 1: NO ACUTE CARDIOPULMONARY DISEASE. Reviewed, dictated and finalized at location A.
--- NOTE | ~2021-10-17 | CT_ITS ---
EXAMINATION: CT brain wo con DATE: 10/17/2021 11:46 INDICATION: Altered mental status TECHNIQUE: Computed tomography (CT) of the head was performed without intravenous contrast. The dose- length product was 605.33 mGy-cm. Automated exposure control and iterative reconstruction technique w ere employed. COMPARISON: CT dated 01/21/2021 FINDINGS: No acute intracranial hemorrhage, infarction, mass or mass effect. No ventriculomegaly or m idline shift. Basilar cisterns are patent. There is a small extra-axial calcified mass at the right p arietal vertex, likely meningioma. Paranasal sinuses and mastoids are pneumatized. No depressed skull fractures. There are scattered mild periventricular and subcortical white matter changes, most likel y related to small vessel ischemic disease (microangiopathy). IMPRESSION: 1. No acute intracranial abnormality. 2: Chronic age-related findings. Reviewed, dictated and finalized at location A.
--- NOTE | ~2021-10-17 | XR_ITS ---
EXAMINATION: XR stent kub - surgery DATE: 10/17/2021 14:34 INDICATION: Bilateral internal ureteral stent placement TECHNIQUE: Fluoroscopic images from a bilateral internal ureteral stent placement are submitted for mariam greer. 38 seconds of fluoroscopy time. FINDINGS: No prior studies for comparison. There is a bilateral double-J internal ureteral stent projecting in expected position, with proximal Herman loop at the level of the renal pelvis and distal loop is not visualized.. IMPRESSION: 1. Bilateral internal ureteral stent placement. Please refer to real-time procedural findings for d etails. Reviewed, dictated and finalized at location A. IMPRESSION: 1. Bilateral internal ureteral stent placement. Please refer to real-time pro cedural findings for details.
--- NOTE | ~2021-10-17 | US_ITS ---
EXAMINATION: US renal BI DATE: 10/25/2021 08:37 INDICATION: Worsening leukocytosis TECHNIQUE: Multiple ultrasound grayscale images of the kidneys were obtained. COMPARISON: CT dated 10/24/2021 FINDINGS: The right kidney measures 12.2 x 5.6 x 5.3 cm. Exophytic 4.4 cm anechoic cyst arising from the lower pole of the right kidney. The left kidney measures 12.6 x 6.0 x 6.1 cm. The kidneys demonstrate doug l echogenicity. There is no hydronephrosis in either kidney. No stones identified. The bladder is de compressed around a White catheter which limits evaluation. IMPRESSION: 1. 4.4 cm right renal cyst. No hydronephrosis. Reviewed, dictated and finalized at location A.
--- NOTE | ~2021-10-17 | CT_ITS ---
EXAMINATION: CT abdomen pelvis wo con DATE: 10/17/2021 11:46 INDICATION: Abdominal pain. History of dementia. TECHNIQUE: Computed tomography (CT) of the abdomen and pelvis was performed without intravenous contr ast. The dose-length product was 1134.95 mGy-cm. Automated exposure control and iterative reconstruct ion technique were employed. COMPARISON: CT dated 09/29/2021. FINDINGS: Lung bases are unremarkable. No significant pleural or pericardial effusion. There are calc ified granulomas of the spleen. The liver, pancreas, adrenal glands are unremarkable. There is a comp licated peripherally calcified hypodense mass of the right kidney measuring up to 4.8 cm greatest dim ension, likely a complicated cyst, without significant change. There is severe right and moderate left hydroureteronephrosis. There are stones collecting in the dis galo aspect of both ureters. Prostate gland is enlarged. Small amount of gas in the bladder, likely fr om recent instrumentation. Bladder is moderately distended. Colonic diverticulosis without evidence f or diverticulitis. No obstruction. No free air. Small fat-containing umbilical hernia. Severe lumbar spondylosis. IMPRESSION: 1. Bilateral hydroureteronephrosis, right greater than left with multiple distal bilateral ureteral s tones. Reviewed, dictated and finalized at location A. IMPRESSION: 1. Bilateral hydroureteronephrosis, right greater than left with multiple dista l bilateral ureteral stones.
--- NOTE | ~2021-10-17 | XR_ITS ---
XR abdomen/kub 1V 10/17/2021 12:23 Indication: Ureteral stone Procedure: KUB Comparison: CT dated 10/17/2021 Findings: There are multiple calcifications in the pelvis corresponding to distal ureteral stones see n on CT examination. There is moderate lumbar spondylosis with dextroscoliosis. Bowel gas pattern is nonobstructive. No stones are identified overlying the kidneys. Impression: 1: Bilateral distal ureteral stones. Reviewed, dictated and finalized at location A. Impression: 1: Bilateral distal ureteral stones.
--- NOTE | 2021-10-17 10:51 | ECG_ITS ---
Measurements Intervals [place] Rate: 76 P: 40 AK: 142 QRS: 12 QRSD: 86 T: 14 QT: 351 QTc: 397 Interpretive Statements SINUS RHYTHM WITH OCCASIONAL VENTRICULAR PREMATURE COMPLEXES ABNORMAL ECG Electronically Signed On 10-17-2021 12:21:34 CDT by Nael Painting M.D.
--- NOTE | 2021-10-17 10:54 | ED.WEAKNESS ---
HPI - Weakness General Chief complaint: Weakness Stated complaint: WEAKNESS Source: RN notes reviewed History of Present Illness HPI Narrative: Patient presents emergency department from assisted living via EMS for weakness. Patient has a history of dementia and history is per the and EMS per the the patient's been more weak having difficulty time getting up and getting around patient currently is resting in bed he has no complaints he denies any fevers or chills, chest pain, shortness of breath, abdominal pain, nausea vomiting or any other symptoms. No known falls at this time he denies any injuries Related Data Home Medications Medication Instructions Recorded Confirmed donepezil [Aricept] 10 mg PO HS 07/31/19 10/01/21 levetiracetam [Keppra] 500 mg PO BID 07/31/19 10/01/21 lisinopril 5 mg PO QAM 07/31/19 10/01/21 memantine 10 mg PO BID 07/31/19 10/01/21 Allergies Allergy/AdvReac Type Severity Reaction Status Date / Time No Known Allergies Allergy Verified 10/17/21 10:56 Review of Systems Review of Systems: Gen.: Denies fevers or chills ENT: Denies congestion Respiratory: Denies shortness of breath or cough CV: Denies chest pain or palpitations GI: Denies abdominal pain nausea, emesis or diarrhea Musculoskeletal: Denies back pain or muscle pain Neuro: See HPI Skin: Denies rash Except as documented, all other systems reviewed and negative PMF Past Medical History Medical History Arthritis Dementia Hearing loss, bilateral HTN (hypertension) Kidney stones Seizures DX 2000. LAST ONE 2016. TAKES KEPPRA Transient ischemic attack 1975 Surgical History Surgical History No history of previous surgery Social History Social History Smoking status: Never smoker Second hand tobacco smoke exposure: No Alcohol intake: never Substance use: never Substance use type: does not use Gender identity (if verbalized by the patient): Male Spiritual care concerns: No Exam Narrative: APPEARANCE: No acute distress, nontoxic, resting in bed EYES: EOMI HEENT: Normocephalic, atraumatic, OMM RESPIRATORY: No respiratory distress Clear to auscultation bilaterally with no rhonchi wheezing or rales. CARDIOVASCULAR: Regular rate and rhythm without murmurs rubs or gallops. ABDOMINAL: Soft, nontender, nondistended, no rebound or guarding MUSCULOSKELETAl: Moves all extremities. No clubbing, cyanosis or edema. NEURO: Awake and alert x 2. Following commands, speech normal, no focal deficits SKIN:: Warm, dry. No rashes lesions or abrasions PSYCHIATRIC: Normal affect/mood, Course Course Emergency Course: Reviewed old records Patient with White catheter placed in the ER clamped after initial 1000 mL out over 1500 mL out total Discussed with Dr. Lopez for urology agrees with plan for consult plan to take patient to the OR today Discussed with LC Chavez for Dr. Biswas agrees with admission Discussed with patient and family results of workup and diagnosis. Discussed need for admission. Patient and family understand and agree to current treatment plan Vital Signs Vital signs: Vital Signs Temperature 97.7 F 10/17/21 10:50 Pulse Rate 76 10/17/21 10:50 Respiratory Rate 18 10/17/21 10:50 Blood Pressure 132/77 10/17/21 10:50 Pulse Oximetry 98 10/17/21 10:50 Temperature 97.7 F 10/17/21 10:50 Pulse Rate 73 10/17/21 10:55 Respiratory Rate 18 10/17/21 10:50 Blood Pressure 132/77 10/17/21 10:50 Pulse Oximetry 98 10/17/21 10:50 MDM - Weakness Lab Data Result diagrams: 10/17/21 11:02 10/17/21 11:02 Labs: Lab Results 10/17/21 10/17/21 10/17/21 Range/Units 11:02 11:02 11:02 WBC 9.8 (4.5-10.0) K/mm3 RBC 3.47 L (4.6-6.20) M/mm3 Hgb 10.8 L D (14.0-18.0) g
[2021-10-17 11:07] LABS: Basophils Percent Auto 0.2 % (0.2-1.2); Eosinophils Absolute Auto 0.1 K/mm3 (0-0.3); Eosinophils Percent Auto 0.8 % (0-4.4); Hematocrit 32.5 % (42.0-52.0); Hemoglobin 10.8 g/dL (14.0-18.0); Immature Granulocyte Absolute 0.04 K/mm3 (0.00-0.031); Immature Granulocyte Percent A 0.4 % (0-0.5); Lymphocytes Absolute Auto 0.22 K/mm3 (0.9-3.2); Lymphocytes Percent Auto 2.3 % (18.3-44.2); Mean Corpuscular HGB Conc 33.2 g/dl (32-36); Mean Corpuscular Hemoglobin 31.1 pg (26-34); Mean Corpuscular Volume 93.7 fl (80-100); Mean Platelet Volume 9.9 fl (7.4-10.4); Monocytes Percent Auto 10.5 % (2.6-8.5); Neutrophils Absolute Auto 8.4 K/mm3 (1.3-6.7); Neutrophils Percent Auto 85.8 % (45.5-73.1); Platelet Count Result 161 k/mm3 (150-375); Red Blood Count 3.47 M/mm3 (4.6-6.20); Red Cell Distribution Width 13.8 % (11.5-14.5); White Blood Count 9.8 K/mm3 (4.5-10.0)
[2021-10-17 11:17] LABS: INR 1.5; Prothrombin Time 17.2 Seconds (11.1-14.7)
[2021-10-17 11:18] LABS: Partial Thromboplastin Time 33.3 SECONDS (22.3-36.8)
[2021-10-17 11:21] LABS: Alanine Aminotransferase 32 U/L (4-50); Alkaline Phosphatase 87 U/L (38-126); Anion Gap 7 mmol/L (8-16); Aspartate Amino Transferase 46 U/L (17-59); Bilirubin,Total 0.6 mg/dL (0.2-1.3); Blood Urea Nitrogen 66 mg/dL (9-20); Carbon Dioxide 22 mmol/L (22-30); Chloride 100 mmol/L (98-107); Estimated CRCL calculation 12 ml/min; Estimated Glomerular Filt Rate 12; Glucose 150 mg/dL (65-110); Sodium 129 mmol/L (137-145)
[2021-10-17 12:10] LABS: Add Urine Microscopic? YES; Appearance Urine Cloudy (Clear); Bacteria Urine 3+ /hpf; Bilirubin Urine Negative (Negative); Blood Urine 3+ (Negative); Color Urine Yellow (Yellow); Glucose Urine UA Negative (Negative); Ketones Urine Negative (Negative); Leukocyte Esterase Ur 3+ LEU/UL (Negative); Mucus Urine Rare /lpf; Nitrate Urine Negative (Negative); Protein Urine 1+ mg/dL (Negative); RBC Urine 21-50 /hpf (0-2); Urobilinogen Urine Negative mg/dL (<2.0); WBC Clumps Urine Present /HPF; WBC Urine >75 /hpf
[2021-10-17] MEDS: SODIUM CHLORIDE 0.9% IV 1,000 ML 999 ML IV CONT (12:18)
[2021-10-17 13:07] LABS: Lactic Acid Reflex 1.1 mmol/L (0.7-2.1)
--- NOTE | 2021-10-17 13:10 | PC.NURSE ---
Patient care report called to EMANI Gonzalez. All questions answered at this time.
--- NOTE | 2021-10-17 13:13 | PC.NURSE ---
Patient's going to go home during surgery. Patient's 's phone number is [phone].
--- NOTE | 2021-10-17 13:17 | PC.NURSE ---
Patient taken to surgery by donor technician on ED stretcher. Patient's took his belongings with her.
--- NOTE | 2021-10-17 13:28 | WPDANESEPPF ---
Anes - Initial Pre Proc Eval Date/Time: 10/17/21 13:28 Pre Op Diagnosis: WEAKNESS Patient Data Age: 86 Gender: M Height: 1.8 m Weight: 90 kg Last Vital Signs Temp 36.5 C 10/17/21 10:50 Pulse 82 10/17/21 13:01 Resp 15 10/17/21 13:01 BP 125/72 10/17/21 13:01 Pulse Ox 97 10/17/21 13:01 Allergies Allergy/AdvReac Type Severity Reaction Status Date / Time No Known Allergies Allergy Verified 10/17/21 10:56 Home Medications Medication Instructions Recorded Confirmed Type donepezil [Aricept] 10 mg PO HS 07/31/19 10/01/21 History levetiracetam [Keppra] 500 mg PO BID 07/31/19 10/01/21 History lisinopril 5 mg PO QAM 07/31/19 10/01/21 History memantine 10 mg PO BID 07/31/19 10/01/21 History hydrocodone-acetaminophen 1 - 2 tablet PO Q6H PRN #20 tablet 10/04/19 10/01/21 Rx cephalexin 500 mg PO Q8H #9 cap 10/01/21 Rx hydrocodone-acetaminophen 1 - 2 tablet PO Q6H PRN #20 tablet 10/01/21 Rx Laboratory Tests 10/17/21 10/17/21 10/17/21 11:02 11:02 11:02 WBC 9.8 K/mm3 K/mm3 (4.5-10.0) RBC 3.47 M/mm3 L M/mm3 (4.6-6.20) Hgb 10.8 g/dL L D g/dL (14.0-18.0) Hct 32.5 % L % (42.0-52.0) MCV 93.7 fl fl (80-100) MCH 31.1 pg pg (26-34) MCHC 33.2 g/dl g/dl (32-36) RDW 13.8 % % (11.5-14.5) Plt Count 161 k/mm3 k/mm3 (150-375) MPV 9.9 fl fl (7.4-10.4) Immature Gran % (Auto) 0.4 % % (0-0.5) Neut % (Auto) 85.8 % H % (45.5-73.1) Lymph % (Auto) 2.3 % L % (18.3-44.2) [place] % (Auto) 10.5 % H % (2.6-8.5) Eos % (Auto) 0.8 % % (0-4.4) Baso % (Auto) 0.2 % % (0.2-1.2) Lymph # (Auto) 0.22 K/mm3 L K/mm3 (0.9-3.2) [place] # (Auto) 1.0 K/mm3 H K/mm3 (0.1-0.6) Eos # (Auto) 0.1 K/mm3 K/mm3 (0-0.3) Baso # (Auto) 0.0 K/mm3 K/mm3 (0.0-0.1) Abs Immat Gran (auto) 0.04 K/mm3 H K/mm3 (0.00-0.031) Absolute Neuts (auto) 8.4 K/mm3 H K/mm3 (1.3-6.7) Absolute Nucleated RBC 0.0 K/mm3 K/mm3 (0.0-0.012) Nucleated RBC % 0.0 % % (0.0-0.2) PT 17.2 Seconds H Seconds (11.1-14.7) INR 1.5 APTT 33.3 SECONDS SECONDS (22.3-36.8) Sodium 129 mmol/L L mmol/L (137-145) Potassium 4.0 mmol/L mmol/L (3.4-5.0) Chloride 100 mmol/L mmol/L (98-107) Carbon Dioxide 22 mmol/L mmol/L (22-30) Anion Gap 7 mmol/L L mmol/L (8-16) BUN 66 mg/dL H D mg/dL (9-20) Creatinine 4.50 mg/dL H mg/dL (0.7-1.3) Estim Creat Clear Calc 12 ml/min ml/min Estimated GFR 12 L (59 - ) Glucose 150 mg/dL H mg/dL (65-110) Lactic Acid Calcium 9.0 mg/dL mg/dL (8.4-10.2) Total Bilirubin 0.6 mg/dL mg/dL (0.2-1.3) AST 46 U/L U/L (17-59) ALT 32 U/L U/L (4-50) Alkaline Phosphatase 87 U/L U/L (38-126) Total Protein 6.0 g/dL L g/dL (6.3-8.2) Albumin 3.0 g/dL L g/dL (3.5-5.1) Urine Color Urine Appearance Urine pH Ur Specific [place] Urine Protein Urine Glucose (UA) Urine Ketones Ur Blood (Man) Urine Nitrate Urine Bilirubin Urine Urobilinogen Leukocyte Esterase Rfl Urine RBC Urine WBC Urine WBC Clumps Urine Bacteria Urine Mucus 10/17/21 10/17/21 11:57 12:50 WBC RBC Hgb Hct MCV MCH MCHC RDW Plt Count MPV Immature Gran % (Auto) Neut % (Auto) Lymph % (Auto) [place] % (Auto) Eos % (Auto) Baso % (Auto) Lymph # (Auto) [place]
--- NOTE | 2021-10-17 14:01 | CONS_ITS ---
This report was moved to the correct visit, on 10/19/2021. Original report was signed by Manuel Lopez MD on 10/17/21 1401. Assessment and Plan Additional Plan 86M with UTI, urinary retention, bilateral ureteral stones, renal failure - proceed with cystoscopy with bilateral ureteral stent placement; will delay definitive stone treatment until his labs have stabilized and his infection can be treated - patient seems to understand and agree with plan; I tried to reach at [phone] but says number disconnected; she was here with him earlier and aware of plan [facility] Consult Note HPI Date Seen: 10/17/21 Requesting Physician: Dr. Moise, ED Primary Care Provider: Srinivasa Macias MD Consult Narrative Narrative: Krishna Saldana is a 86 year old male s/p left URS a few weeks ago with Dr Nguyễn. Came to ED. Bladder extremely full with bilateral hydro and bilateral distal ureteral stones. Catheter has been placed. Urine clearly infected. He's in renal failure with a creatinine of 4.5 (baseline 1.0 from about two weeks ago). Review of Systems Review of Systems: ROS unobtainable: Yes unobtainable due to mental status PMFSH Past Medical History Medical History Arthritis Dementia Hearing loss, bilateral HTN (hypertension) Kidney stones Seizures DX 1999. LAST ONE 2016. TAKES KEPPRA Transient ischemic attack 1974 Surgical History Surgical History No history of previous surgery Social History Social History Smoking status: Never smoker Second hand tobacco smoke exposure: No Alcohol intake: never Substance use: never Substance use type: does not use Gender identity (if verbalized by the patient): Male Spiritual care concerns: No Meds Home Medications and Allergies Home Medications Medication Instructions Recorded Confirmed Type donepezil [Aricept] 10 mg PO HS 07/31/19 10/01/21 History levetiracetam [Keppra] 500 mg PO BID 07/31/19 10/01/21 History lisinopril 5 mg PO QAM 07/31/19 10/01/21 History memantine 10 mg PO BID 07/31/19 10/01/21 History hydrocodone-acetaminophen 1 - 2 tablet PO Q6H PRN #20 tablet 10/04/19 10/01/21 Rx cephalexin 500 mg PO Q8H #9 cap 10/01/21 Rx hydrocodone-acetaminophen 1 - 2 tablet PO Q6H PRN #20 tablet 10/01/21 Rx Allergies Allergy/AdvReac Type Severity Reaction Status Date / Time No Known Allergies Allergy Verified 10/17/21 10:56 Exam Const: General: cooperative, healthy appearing, comfortable, no acute distress, alert and confusion (oriented to place and year, not month) Urinary Catheter: Urinary Catheter: patent and draining and urine cloudy This dictation may have been done utilizing a voice recognition system. Attempts have been made to correct errors. However, there may be uncorrected grammatical, spelling, and recognition errors present. Report Initialized date/time: Manuel Lopez MD 10/17/21 / 1401 Electronically signed by: Manuel Lopez MD 10/17/21 1401 [facility]
--- NOTE | 2021-10-17 14:25 | SUR.OPER ---
BILATERAL URETERAL STENTS 6FR EXP 06-14-24 RIGHT AND LEFT.
[2021-10-17] MEDS: LACTATED RINGERS 1,000 ML 30 ML IV CONT (14:35)
--- NOTE | 2021-10-17 14:39 | OP_ITS ---
This report was moved to the correct visit, on 10/19/2021. Original report was signed by Manuel Lopez MD on 10/17/21 1934. Procedure Note - Detailed Date of Procedure 10/17/21 Pre-op Diagnosis bilateral ureteral stones Post-op Diagnosis Same Procedure Performed Cystoscopy, bilateral ureteral stent placement Surgeon Manuel Lopez MD Anesthesia General Indications Bilateral hydro, bilateral ureteral stones, renal failure Description of Procedure Patient was brought back to the OR. Ceftriaxone had been administered. He was prepped and draped and placed under general anesthesia given his breakfast this morning. Fajardo was removed. Rigid cystoscope was advanced into bladder. Urethra unremarkable. Prostate moderately enlarged. Bladder clearly infected. Left UO was identified and a glidewire was advanced into renal pelvis after some tortuosity was worked out. 6F variable length stent was advanced over wire with good curl noted. Procedure was repeated on right side. No complications. Fajardo replaced. Patient sent to recovery. Implants Bilateral 6Fxvariable stents, fajardo catheter Complications No immediate complications Disposition Floor This dictation may have been done utilizing a voice recognition system. Attempts have been made to correct errors. However, there may be uncorrected grammatical, spelling, and recognition errors present. Report Initialized date/time: Manuel Lopez MD 10/17/21 / 143 Electronically signed by: Manuel Lopez MD 10/17/211438 [facility]
--- NOTE | 2021-10-17 15:45 | PM.IMHP ---
H&P: HPI History of Present Illness Date/Time: 10/17/21 15:45 Chief Complaint: Weakness. Narrative: This is a pleasant 86-year-old male with dementia, seizure disorder, hypertension, and history of kidney stones who presented to the emergency department via EMS for evaluation of weakness. He had lithotripsy with stone extraction on 10/01/[address] Nguyễn and since that time ?he has just not been acting the same? according to his . He has complained of worsening chronic low back pain and he has not been getting up and about as much as usual. These last couple of days he has gotten weak and his has been having difficulties caring for him. In the emergency department he was found to have evidence of urinary tract infection as well as an acute kidney injury. CT of the abdomen and pelvis showed bilateral hydroureteronephrosis, right greater than left, with multiple distal bilateral ureteral stones and he was taken to the OR per Dr. Lopez where bilateral ureteral stents were placed. He was also retaining urine and a White catheter was placed. With further questioning patient endorses difficulties urinating with a slow stream and hesitancy starting his stream with feelings of incomplete bladder evacuation. At the time my evaluation he is resting comfortably and is feeling a bit better. He has no significant complaints and specifically denies fever, chills, sweats, syncope, near syncope, chest pain, shortness breast, nausea, and vomiting. Review of Systems Review of Systems: Twelve systems were reviewed. Cold or flu symptoms. He is on pain medication for chronic back pain and tends to get a bit constipated. It does not sound as though he takes a stool softener at home and he would like to try 1 to see if that will help with his bowels. Except as documented, all other systems were reviewed and are negative. [facility] Past Medical History Medical History Arthritis B12 deficiency Bilateral sensorineural hearing loss Dementia Hypertension Kidney stones Meningioma Seizures (1999) Admitted with status epilepticus in October 2014. Last seizure in 2016. Transient ischemic attack (1974) Surgical History Surgical History History of appendectomy (1962) History of arthroscopy of right shoulder History of cystoscopy History of inguinal hernia repair (1965) Family History Family History (Updated 10/17/21 @ 14:44 by Kathy Guerrero PA-C) Sibling Melanoma Father Congestive heart failure Social History Social History (Updated 10/17/21 @ 23:50 by Kathy Guerrero PA-C) Social History: Surrogate decision maker: Chivo Saldana, son. Code status: Do not resuscitate. Smoking status: Never smoker Second hand tobacco smoke exposure: No Alcohol intake: never Drinks per week: 0 Substance use: never Substance use type: does not use Additional living arrangements comments: The patient lives with his in [place]. 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 Meds Home Medications and Allergies Home Medications Medication Instructions Recorded Confirmed Type donepezil [Aricept] 10 mg PO HS 07/31/19 10/17/21 History levetiracetam [Keppra] 500 mg PO BID 07/31/19 10/17/21 History lisinopril 5 mg PO QAM 07/31/19 10/17/21 History memantine 10 mg PO BID 07/31/19 10/17/21 History hydrocodone-acetaminophen 1 - 2 tablet PO Q6H PRN #20 tablet 10/01/21 10/17/21 Rx Allergies Allergy/AdvReac Type Severity Reaction Status Date / Time No Known Allergies Allergy Verified 10/17/21 17:46 Vital Signs Vital Signs - 24 hr 10/17/21 10:50 10/17/21 10:52 10/17/21 10:55 Temperature 97.7 F Pulse Rate 76 74 73 Respiratory Rate 18 16 Blood Pressure 132/77 132/77 Pulse Oximetry 98 98 10/17/21 11:01 10/17/21 11:46 10/17/21 12:01 Temperature Pulse Rate
--- NOTE | 2021-10-17 18:54 | ADMGEN ---
This patient, Krishna Saldana, was admitted to Medical Room 257-01. Patient/family oriented to hospital policies and general routines including ID bracelet, bed and alarms, visiting hours, pain management, procedures, bathroom and other care routines, personal items, smoking policy, room service/diet, and visiting hours. Information on how to activate the Rapid Response Team has been discussed. Patient/Family are encouraged to report perceived risks to care and to ask questions if they do not understand what they are told or what they should do.
[2021-10-17 19:29] LABS: Anion Gap 4 mmol/L (8-16); Blood Urea Nitrogen 62 mg/dL (9-20); Calcium 8.7 mg/dL (8.4-10.2); Carbon Dioxide 25 mmol/L (22-30); Chloride 102 mmol/L (98-107); Creatine Kinase 38 U/L (55-170); Estimated CRCL calculation 13 ml/min; Estimated Glomerular Filt Rate 14; Glucose 167 mg/dL (65-110); Magnesium 2.3 mg/dL (1.6-2.3); Potassium 4.2 mmol/L (3.4-5.0); Sodium 131 mmol/L (137-145)
[2021-10-17] MEDS: SODIUM CHLORIDE 0.9% IV 1,000 ML 100 ML IV CONT (20:21)
[2021-10-17] MEDS: HYDROcodone/acetaminophen (*CRX) 10-325 MG TABLET 1 TAB PO (20:22)
[2021-10-18] MEDS: DONEPEZIL HCL 10 MG TABLET PO ×2 (00:13→20:04)
[2021-10-18] MEDS: levETIRAcetam 500 MG TABLET PO ×3 (00:13→20:04)
[2021-10-18 03:35] VITALS: BP 105/53; PULSE 63; RESP 17; TEMP 36.3; O2SAT 100
[2021-10-18 05:12] LABS: Basophils Percent Auto 0.2 % (0.2-1.2); Hematocrit 30.6 % (42.0-52.0); Hemoglobin 9.9 g/dL (14.0-18.0); Immature Granulocyte Absolute 0.03 K/mm3 (0.00-0.031); Immature Granulocyte Percent A 0.3 % (0-0.5); Lymphocytes Percent Auto 3.3 % (18.3-44.2); Mean Corpuscular HGB Conc 32.4 g/dl (32-36); Mean Corpuscular Hemoglobin 30.9 pg (26-34); Mean Corpuscular Volume 95.6 fl (80-100); Mean Platelet Volume 10.4 fl (7.4-10.4); Monocytes Absolute Auto 0.8 K/mm3 (0.1-0.6); Monocytes Percent Auto 9.2 % (2.6-8.5); Platelet Count Result 152 k/mm3 (150-375); Red Cell Distribution Width 13.6 % (11.5-14.5); White Blood Count 9.2 K/mm3 (4.5-10.0)
[2021-10-18] MEDS: SODIUM CHLORIDE 0.9% IV 1,000 ML 100 ML IV CONT ×2 (05:13→17:12)
[2021-10-18 05:31] LABS: Anion Gap 7 mmol/L (8-16); Blood Urea Nitrogen 62 mg/dL (9-20); Calcium 8.7 mg/dL (8.4-10.2); Carbon Dioxide 22 mmol/L (22-30); Chloride 105 mmol/L (98-107); Estimated CRCL calculation 14 ml/min; Estimated Glomerular Filt Rate 16; Glucose 144 mg/dL (65-110); Magnesium 2.2 mg/dL (1.6-2.3); Potassium 4.5 mmol/L (3.4-5.0); Sodium 134 mmol/L (137-145)
[2021-10-18 07:35] VITALS: BP 101/52; PULSE 54; RESP 15; TEMP 36.4; O2SAT 95
[2021-10-18] MEDS: MEMANTINE 10 MG TABLET PO ×2 (09:19→20:04)
--- NOTE | 2021-10-18 10:25 | WPDUROPN2 ---
Progress Note: A&P Assessment and Plan (1) Kidney stone on left side: Code(s): N20.0 - Calculus of kidney Status: Acute (2) Kidney stone on right side: Code(s): N20.0 - Calculus of kidney Status: Acute (3) Acute UTI: Code(s): N39.0 - Urinary tract infection, site not specified Status: Acute (4) Acute urinary retention: Code(s): R33.8 - Other retention of urine Status: Acute Assessment and Plan: 86M with bilateral ureteral stones, retention, hydro, TRUONG - now with bilateral stents and fajardo, creat improving. continue to monitor today to ensure resolution of TRUONG and wait for cultures to return; will need to DC with fajardo on probably ten days abx - will need bilateral URS/LL/stent exchange in a week or two Subjective Subjective Date/Time Seen: 10/18/21 10:25 Patient resting comfortably. Urine regine red, catheter draining fine. Creat downtrending. Culture not back yet. Review of Systems Review of Systems: All systems reviewed & are unremarkable except as noted in HPI and below Exam Narrative: no distress, not in any pain, catheter draining well with some old blood rust coloration Objective Data Vital Signs Vital Signs: Vital Signs - 24 hr 10/17/21 10:50 10/17/21 10:52 10/17/21 10:55 Temperature 36.5 C Pulse Rate 76 74 73 Respiratory Rate 18 16 Blood Pressure 132/77 132/77 Pulse Oximetry 98 98 10/17/21 11:01 10/17/21 11:46 10/17/21 12:01 Temperature Pulse Rate 75 81 Respiratory Rate 20 20 Blood Pressure 130/69 122/72 122/72 Pulse Oximetry 98 97 96 10/17/21 13:01 10/17/21 14:35 10/17/21 14:50 Temperature 36.1 C L Pulse Rate 82 94 81 Respiratory Rate 15 16 18 Blood Pressure 125/72 124/64 138/74 Pulse Oximetry 97 100 100 10/17/21 14:58 10/17/21 15:05 10/17/21 15:20 Temperature Pulse Rate 89 80 Respiratory Rate 18 18 Blood Pressure 125/70 111/64 Pulse Oximetry 100 98 98 10/17/21 15:35 10/17/21 16:00 10/17/21 16:15 Temperature 36.8 C 36.6 C Pulse Rate 75 78 76 Respiratory Rate 16 12 12 Blood Pressure 115/60 122/76 122/72 Pulse Oximetry 96 92 95 10/17/21 16:45 10/17/21 17:45 10/17/21 19:55 Temperature 36.4 C L 36.6 C 36.8 C Pulse Rate 71 81 66 Respiratory Rate 16 12 16 Blood Pressure 118/66 124/60 120/59 L Pulse Oximetry 94 98 98 10/17/21 23:24 10/18/21 03:35 Temperature 36.3 C L 36.3 C L Pulse Rate 84 63 Respiratory Rate 17 17 Blood Pressure 100/58 L 105/53 L Pulse Oximetry 94 100 Intake/Output Intake/Output: Intake & Output 10/15/21 10/16/21 10/17/21 10/18/21 23:59 23:59 23:59 23:59 Intake Total 665 1050 Output Total 1500 1950 Balance -835 -900 Meds/Results Medications: Active Medications Generic Name Dose Route Start Last Admin Trade Name Freq PRN Reason Stop Dose Admin Acetaminophen 650 mg 10/17/21 23:51 Acetaminophen 325 Mg Tablet PO Q6H PRN Mild Pain (1-3) or Fever Hydrocodone Bitart/Acetaminophen 1 tab 10/17/21 23:53 Hydrocodone/Acetaminophen (*Crx) 5-325 Mg Tablet PO Q6H PRN pain 7-10 Donepezil HCl 10 mg 10/18/21 00:00 10/18/21 00:13 Donepezil Hcl 10 Mg Tablet PO 10 mg HS LINDA Administration Ceftriaxone Sodium/Dextrose 1 gm in 50 mls @ 100 mls/hr 10/18/21 12:00 Rocephin 1 Gm/D5w 50 Ml IVPB Q24H LINDA Sodium Chloride 1,000 mls @ 100 mls/hr 10/17/21 12:35 10/18/21 05:13 Normal Saline Iv IV CONT 100 mls/hr .Q10H LINDA Administration Levetiracetam 500 mg 10/18/21 00:00 10/18/21 09:19 Levetiracetam 500 Mg Tablet PO 500 mg Q12HR LINDA Administration Memantine 10 mg 10/18/21 09:00 10/18/21 09:19 Memantine 10 Mg Tablet PO 10 mg Q12HR LINDA Administration Radiology Results: ITS Impressions Chest X-Ray 10/17/21 11:12 IMPRESSION: 1: NO ACUTE CARDIOPULMONARY DISEASE. Head CT 10/17/21 11:48 IMPRESSION: 1. No acute intracranial abnormality. 2: Chronic age-related find
[2021-10-18 11:35] VITALS: BP 94/46; PULSE 69; RESP 16; TEMP 36.6; O2SAT 94
--- NOTE | 2021-10-18 11:39 | P.PNIM_ITS ---
Progress Note: A&P Assessment and Plan (1) Acute kidney injury: Code(s): N17.9 - Acute kidney failure, unspecified <Marina Batesluan PA-C - Last Filed: 10/18/21 12:15> Status: Acute <Marina Alvarez PA-C - Last Filed: 10/18/21 12:15> Assessment and Plan: Suspect obstructive etiology secondary to bilateral ureteral stones and urinary retention * Creatinine 4.5 on presentation * Improved today with placement of ureteral stents to 3.6 * Continue IV fluids * Monitor BUN and Creatinine * Renally dose meds and avoid nephrotoxins * Consider nephrology consultation if worsening/lack of improvement <Marina SmithErik Janaluan PA-C - Last Filed: 10/18/21 12:15> (2) Hydronephrosis with urinary obstruction due to ureteral calculus: Code(s): N13.2 - Hydronephrosis with renal and ureteral calculous obstruction <Marina SmithErik Janaluan PA-C - Last Filed: 10/18/21 12:15> Status: Acute <Marina Batesluan PA-C - Last Filed: 10/18/21 12:15> Assessment and Plan: CT on presentation showed bilateral hydroureteronephrosis with multiple distal bilateral ureteral stone * Appreciate urology consultation * Patient is now s/p cystoscopy with bilateral ureteral stent placement on 10/17 Tolerated the procedure well * Continue White catheter * Will need outpatient follow-up for bilateral stent exchange in 1-2 weeks <Marina SmithErik Alvarez PA-C - Last Filed: 10/18/21 12:15> (3) Urinary tract infection: Code(s): N39.0 - Urinary tract infection, site not specified <Marina Batesluan PA-C - Last Filed: 10/18/21 12:15> Status: Acute <Marinarach Batesluan PA-C - Last Filed: 10/18/21 12:15> Assessment and Plan: UA is suspicious for UTI * Continue IV Ceftriaxone * Urine culture is pending * Await final cultures and tailor antibiotics accordingly <Marina SarahErik Alvarez PA-C - Last Filed: 10/18/21 12:15> (4) Bacteremia: Code(s): R78.81 - Bacteremia <Marina J. Stimac, PA-C - Last Filed: 10/18/21 12:15> Status: Acute <LC Schaffer-C - Last Filed: 10/18/21 12:15> Assessment and Plan: Preliminary blood cultures with gram negative bacilli in 2/2 bottles * Suspect related to UTI * Patient is not septic * Will increase Rocephin to 2 grams * Await final cultures and tailor antibiotics accordingly <LC Schaffer-C - Last Filed: 10/18/21 12:15> (5) Seizures: Onset Date: 1999 <LC Schaffer-C - Last Filed: 10/18/21 12:15> Code(s): R56.9 - Unspecified convulsions <LC Schfafer-C - Last Filed: 10/18/21 12:15> Status: Acute <LC Schaffer-C - Last Filed: 10/18/21 12:15> Assessment and Plan: No recent seizure activity * Continue Keppra <Marina Alvarez, CL-C - Last Filed: 10/18/21 12:15> (6) Generalized weakness: Code(s): R53.1 - Weakness <LC Schaffer-C - Last Filed: 10/18/21 12:15> Status: Acute <Marina Alvarez PA-C - Last Filed: 10/18/21 12:15> Assessment and Plan: Patient plans increased weakness. Suspect this is secondary to underlying infection and acute kidney injury * Appreciate PT/OT evaluation * Continue fall precautions <LC Schaffer-C - Last Filed: 10/18/21 12:15> (7) Hypertension: Code(s): I10 - Essential (primary) hypertension <LC Schaffer-C - Last Filed: 10/18/21 12:15> Status: Acute <Marina Alvarez PA-C - Last Filed: 10/18/21 12:15> Assessment and Plan:
--- NOTE | 2021-10-18 11:39 | PM.IMPN ---
Progress Note: A&P Assessment and Plan (1) Acute kidney injury: Code(s): N17.9 - Acute kidney failure, unspecified <Marina Fletcher Alvarez, PA-C - Last Filed: 10/18/21 12:15> Status: Acute <Marina JErik Stimac, PA-C - Last Filed: 10/18/21 12:15> Assessment and Plan: Suspect obstructive etiology secondary to bilateral ureteral stones and urinary retention Creatinine 4.5 on presentation Improved today with placement of ureteral stents to 3.6 Continue IV fluids Monitor BUN and Creatinine Renally dose meds and avoid nephrotoxins Consider nephrology consultation if worsening/lack of improvement <Marina J. Janaac, PA-C - Last Filed: 10/18/21 12:15> (2) Hydronephrosis with urinary obstruction due to ureteral calculus: Code(s): N13.2 - Hydronephrosis with renal and ureteral calculous obstruction <Marina J. Janaac, PA-C - Last Filed: 10/18/21 12:15> Status: Acute <Marina J. Stimac, PA-C - Last Filed: 10/18/21 12:15> Assessment and Plan: CT on presentation showed bilateral hydroureteronephrosis with multiple distal bilateral ureteral stone Appreciate urology consultation Patient is now s/p cystoscopy with bilateral ureteral stent placement on 10/17 Tolerated the procedure well Continue White catheter Will need outpatient follow-up for bilateral stent exchange in 1-2 weeks <Marina Smith. Janaluan, PA-C - Last Filed: 10/18/21 12:15> (3) Urinary tract infection: Code(s): N39.0 - Urinary tract infection, site not specified <Marina J. Janaac, PA-C - Last Filed: 10/18/21 12:15> Status: Acute <Marina J. Stimac, PA-C - Last Filed: 10/18/21 12:15> Assessment and Plan: UA is suspicious for UTI Continue IV Ceftriaxone Urine culture is pending Await final cultures and tailor antibiotics accordingly <Marina J. Janaac, PA-C - Last Filed: 10/18/21 12:15> (4) Bacteremia: Code(s): R78.81 - Bacteremia <Marina J. Stimac, PA-C - Last Filed: 10/18/21 12:15> Status: Acute <Marina Alvarez PA-C - Last Filed: 10/18/21 12:15> Assessment and Plan: Preliminary blood cultures with gram negative bacilli in 2/2 bottles Suspect related to UTI Patient is not septic Will increase Rocephin to 2 grams Await final cultures and tailor antibiotics accordingly <Marina Batesluan PA-C - Last Filed: 10/18/21 12:15> (5) Seizures: Onset Date: 1999 <Marina Batesluan PA-C - Last Filed: 10/18/21 12:15> Code(s): R56.9 - Unspecified convulsions <Marina Bynum Kim PA-C - Last Filed: 10/18/21 12:15> Status: Acute <Marina Batesluan PA-C - Last Filed: 10/18/21 12:15> Assessment and Plan: No recent seizure activity Continue Keppra <Marina SmithErik Alvarez PA-C - Last Filed: 10/18/21 12:15> (6) Generalized weakness: Code(s): R53.1 - Weakness <Marina Batesluan PA-C - Last Filed: 10/18/21 12:15> Status: Acute <Marina Batesluan PA-C - Last Filed: 10/18/21 12:15> Assessment and Plan: Patient plans increased weakness. Suspect this is secondary to underlying infection and acute kidney injury Appreciate PT/OT evaluation Continue fall precautions <Marina SmithErik Alvarez PA-C - Last Filed: 10/18/21 12:15> (7) Hypertension: Code(s): I10 - Essential (primary) hypertension <Marina SmithErik Alvarez PA-C - Last Filed: 10/18/21 12:15> Status: Acute <Marina Batesluan PA-C - Last Filed: 10/18/21 12:15> Assessment and Plan: Blood pressures reviewed and have been stable. He has not had any elevated blood pressure readings this admission Home lisinopril is on hold <Marina SarahLC Carpenter-C - Last Filed: 10/18/21 12:15> Subjective Date/time seen: 10/18/21 11:39 <Marina Alvarez PA-C - Last Filed: 10/18/21 12:15> Interval history: Date of service: 10/18/2021 Krishna Saldana is
[2021-10-18 14:24] LABS: Hematocrit 33.7 % (42.0-52.0)
[2021-10-18 16:06] VITALS: O2SAT 96
[2021-10-18 17:42] VITALS: BP 113/58
[2021-10-18 19:35] VITALS: BP 120/53; PULSE 58; RESP 17; TEMP 36.8; O2SAT 90
[2021-10-19] MEDS: SODIUM CHLORIDE 0.9% IV 1,000 ML 100 ML IV CONT (02:46)
[2021-10-19 03:43] VITALS: BP 131/60; PULSE 62; RESP 17; TEMP 37; O2SAT 98
[2021-10-19 05:24] LABS: Hematocrit 29.5 % (42.0-52.0); Hemoglobin 9.7 g/dL (14.0-18.0); Mean Corpuscular HGB Conc 32.9 g/dl (32-36); Mean Corpuscular Hemoglobin 31.2 pg (26-34); Mean Corpuscular Volume 94.9 fl (80-100); Mean Platelet Volume 9.8 fl (7.4-10.4); Platelet Count Result 163 k/mm3 (150-375); Red Blood Count 3.11 M/mm3 (4.6-6.20); Red Cell Distribution Width 13.8 % (11.5-14.5)
[2021-10-19 05:35] LABS: Anion Gap 4 mmol/L (8-16); Blood Urea Nitrogen 52 mg/dL (9-20); Calcium 8.4 mg/dL (8.4-10.2); Carbon Dioxide 25 mmol/L (22-30); Chloride 107 mmol/L (98-107); Estimated CRCL calculation 22 ml/min; Estimated Glomerular Filt Rate 26; Glucose 102 mg/dL (65-110); Potassium 3.3 mmol/L (3.4-5.0); Sodium 136 mmol/L (137-145)
--- NOTE | 2021-10-19 06:43 | WPDUROPN2 ---
Progress Note: A&P Assessment and Plan (1) Hydronephrosis with urinary obstruction due to ureteral calculus: Code(s): N13.2 - Hydronephrosis with renal and ureteral calculous obstruction Status: Acute (2) Acute kidney injury: Code(s): N17.9 - Acute kidney failure, unspecified Status: Acute (3) Acute urinary retention: Code(s): R33.8 - Other retention of urine Status: Acute Assessment and Plan: Creat. improving following bilat. stent placement. Will start Tamsulosin and Finasteride for retention. Will need bilat. ureteroscopy with stone extraction electively. Subjective Subjective Date/Time Seen: 10/19/21 06:43 Tolerating stent and catheter well. Urine clear. Review of Systems Cardiovascular: Cardiovascular: Denies chest pain, Denies lightheadedness, Denies palpitations and Denies dyspnea Respiratory: Respiratory: Denies dyspnea Gastrointestinal: Gastrointestinal: Denies diarrhea, Denies nausea and Denies vomiting Genitourinary: Genitourinary: Denies hematuria and Denies dysuria Endocrine: Endocrine: Denies palpitations Exam Const: General: no acute distress Resp: Effort & Inspection: normal respiratory effort GI: Inspection: non-distended GI Palp: No abdominal tenderness and No Guarding due to palpation present (GI) Auscultation: normal bowel sounds Objective Data Vital Signs Vital Signs: Vital Signs - 24 hr 10/18/21 07:35 10/18/21 11:35 10/18/21 16:06 Temperature 97.5 F L 97.9 F Pulse Rate 54 L 69 Respiratory Rate 15 16 Blood Pressure 101/52 L 94/46 L Pulse Oximetry 95 94 96 10/18/21 17:42 10/18/21 19:35 10/19/21 03:43 Temperature 98.3 F 98.6 F Pulse Rate 58 L 62 Respiratory Rate 17 17 Blood Pressure 113/58 L 120/53 L 131/60 Pulse Oximetry 90 98 Intake/Output Intake/Output: Intake & Output 10/16/21 10/17/21 10/18/21 10/19/21 23:59 23:59 23:59 23:59 Intake Total 665 2640 1500 Output Total 1500 3800 1750 Balance -133 -5648 -821 Meds/Results Medications: Active Medications Generic Name Dose Route Start Last Admin Trade Name Freq PRN Reason Stop Dose Admin Acetaminophen 650 mg 10/17/21 23:51 Acetaminophen 325 Mg Tablet PO Q6H PRN Mild Pain (1-3) or Fever Hydrocodone Bitart/Acetaminophen 1 tab 10/17/21 23:53 Hydrocodone/Acetaminophen (*Crx) 5-325 Mg Tablet PO Q6H PRN pain 7-10 Donepezil HCl 10 mg 10/18/21 00:00 10/18/21 20:04 Donepezil Hcl 10 Mg Tablet PO 10 mg HS LINDA Administration Sodium Chloride 1,000 mls @ 100 mls/hr 10/17/21 12:35 10/19/21 02:46 Normal Saline Iv IV CONT 100 mls/hr .Q10H LINDA Administration Ceftriaxone Sodium 2 gm/ 100 mls @ 200 mls/hr 10/19/21 12:00 Sodium Chloride IVPB Q24H LINDA Levetiracetam 500 mg 10/18/21 00:00 10/18/21 20:04 Levetiracetam 500 Mg Tablet PO 500 mg Q12HR LINDA Administration Memantine 10 mg 10/18/21 09:00 10/18/21 20:04 Memantine 10 Mg Tablet PO 10 mg Q12HR LINDA Administration Radiology Results: ITS Impressions Chest X-Ray 10/17/21 11:12 IMPRESSION: 1: NO ACUTE CARDIOPULMONARY DISEASE. Head CT 10/17/21 11:48 IMPRESSION: 1. No acute intracranial abnormality. 2: Chronic age-related findings. Abdomen/Pelvis CT 10/17/21 11:55 IMPRESSION: 1. Bilateral hydroureteronephrosis, right greater than left with multiple distal bilateral ureteral stones. Abdomen X-Ray 10/17/21 12:34 Impression: 1: Bilateral distal ureteral stones. Ureter Stent X-Ray 10/17/21 14:37 IMPRESSION: 1. Bilateral internal ureteral stent placement. Please refer to real-time procedural findings for details. Labs Labs: Laboratory Results - last 24 hr 10/18/21 10/19/21 10/19/21 14:17 05:15 05:15 WBC 11.0 H RBC 3.11 L Hgb 11.0 L 9.7 L Hct 33.7 L 29.5 L MCV 94.9 MCH 31.2 MCHC 32.9 RDW 13.8 Plt Count 163 MPV 9.8 Sod
[2021-10-19] MEDS: levETIRAcetam 500 MG TABLET PO ×2 (08:21→20:24)
[2021-10-19] MEDS: POTASSIUM CHLORIDE 20 MEQ TABLET PO (08:21)
[2021-10-19] MEDS: MEMANTINE 10 MG TABLET PO ×2 (08:21→20:24)
[2021-10-19] MEDS: FINASTERIDE 5 MG TABLET PO (08:21)
[2021-10-19 09:07] VITALS: O2SAT 96
--- NOTE | 2021-10-19 10:40 | P.PNIM_ITS ---
Progress Note: A&P Assessment and Plan (1) Acute kidney injury: Code(s): N17.9 - Acute kidney failure, unspecified <Marina Alvarez PA-C - Last Filed: 10/19/21 10:56> Status: Acute <Marina SmithMORELIA CarpenterC - Last Filed: 10/19/21 10:56> Assessment and Plan: Suspect obstructive etiology secondary to bilateral ureteral stones and urinary retention * Creatinine 4.5 on presentation * Improved with placement of ureteral stents and IV hydration. Creatinine 2.4 today, BUN 52 * Monitor BUN and Creatinine closely * Renally dose meds and avoid nephrotoxins * Consider nephrology consultation if worsening/lack of improvement <MORELIA SchafferC - Last Filed: 10/19/21 10:56> (2) Hydronephrosis with urinary obstruction due to ureteral calculus: Code(s): N13.2 - Hydronephrosis with renal and ureteral calculous obstruction <MORELIA SchafferC - Last Filed: 10/19/21 10:56> Status: Acute <Marina JMORELIA CarpenterC - Last Filed: 10/19/21 10:56> Assessment and Plan: CT on presentation showed bilateral hydroureteronephrosis with multiple distal bilateral ureteral stones * Appreciate urology consultation * Patient is now s/p cystoscopy with bilateral ureteral stent placement on 10/17 Tolerated the procedure well * Continue White catheter * Will need outpatient follow-up for bilateral stent exchange and stone extraction in 1-2 weeks <Marina Alvarez PA-C - Last Filed: 10/19/21 10:56> (3) Urinary tract infection: Code(s): N39.0 - Urinary tract infection, site not specified <MORELIA SchafferC - Last Filed: 10/19/21 10:56> Status: Acute <Marina SarahMORELIA CarpenterC - Last Filed: 10/19/21 10:56> Assessment and Plan: Urinalysis grossly abnormal. Operative note states the bladder is clearly infected. * Urine culture with growth of >100k Enterobacter cloacae, resistant to ceftriaxone * Ceftriaxone has been discontinued * Transitioned to cefepime 1 g q24h (renally dosed) <Marina Alvarez PA-C - Last Filed: 10/19/21 10:56> (4) Bacteremia: Code(s): R78.81 - Bacteremia <Marina Alvarez, PA-C - Last Filed: 10/19/21 10:56> Status: Acute <Marina Alvarez, PA-C - Last Filed: 10/19/21 10:56> Assessment and Plan: Preliminary blood cultures with gram negative bacilli in 2/2 bottles * Suspect related to UTI * Transition to cefepime as above * Await final cultures and tailor antibiotics accordingly * Patient with slight increase in WBC to 11.0 today. Remains afebrile with stable heart rate, respiratory rate and blood pressure. Patient does not meet criteria for sepsis. Lactic 1.1 <Marina Alvarez, PA-C - Last Filed: 10/19/21 10:56> (5) Seizures: Onset Date: 1999 <Marina Alvarez, PA-C - Last Filed: 10/19/21 10:56> Code(s): R56.9 - Unspecified convulsions <Marina Alvarez, PA-C - Last Filed: 10/19/21 10:56> Status: Acute <Marina Alvarez, PA-C - Last Filed: 10/19/21 10:56> Assessment and Plan: No recent seizure activity * Continue Keppra <Marina Alvarez, PA-C - Last Filed: 10/19/21 10:56> (6) Generalized weakness: Code(s): R53.1 - Weakness <Marina Batesac, PA-C - Last Filed: 10/19/21 10:56> Status: Acute <Marinarach Batesac, PA-C - Last Filed: 10/19/21 10:56> Assessment and Plan: Patient presented with increased weakness. Suspect this is secondary to underlying infection and acute kidney injury * Appreciate PT/OT evaluation * Continue fa
--- NOTE | 2021-10-19 10:40 | PM.IMPN ---
Progress Note: A&P Assessment and Plan (1) Acute kidney injury: Code(s): N17.9 - Acute kidney failure, unspecified <Marina SmithErik JanaLC roland-C - Last Filed: 10/19/21 10:56> Status: Acute <Marina Batesluan PA-C - Last Filed: 10/19/21 10:56> Assessment and Plan: Suspect obstructive etiology secondary to bilateral ureteral stones and urinary retention Creatinine 4.5 on presentation Improved with placement of ureteral stents and IV hydration. Creatinine 2.4 today, BUN 52 Monitor BUN and Creatinine closely Renally dose meds and avoid nephrotoxins Consider nephrology consultation if worsening/lack of improvement <Marina JErik Alvarez PA-C - Last Filed: 10/19/21 10:56> (2) Hydronephrosis with urinary obstruction due to ureteral calculus: Code(s): N13.2 - Hydronephrosis with renal and ureteral calculous obstruction <Marina SaarhErik Alvarez PA-C - Last Filed: 10/19/21 10:56> Status: Acute <Marina Batesluan PA-C - Last Filed: 10/19/21 10:56> Assessment and Plan: CT on presentation showed bilateral hydroureteronephrosis with multiple distal bilateral ureteral stones Appreciate urology consultation Patient is now s/p cystoscopy with bilateral ureteral stent placement on 10/17 Tolerated the procedure well Continue White catheter Will need outpatient follow-up for bilateral stent exchange and stone extraction in 1-2 weeks <Marina Alvarez PA-C - Last Filed: 10/19/21 10:56> (3) Urinary tract infection: Code(s): N39.0 - Urinary tract infection, site not specified <Marina SmithErik Alvarez PA-C - Last Filed: 10/19/21 10:56> Status: Acute <Marina SmithErik Alvarez PA-C - Last Filed: 10/19/21 10:56> Assessment and Plan: Urinalysis grossly abnormal. Operative note states the bladder is clearly infected. Urine culture with growth of >100k Enterobacter cloacae, resistant to ceftriaxone Ceftriaxone has been discontinued Transitioned to cefepime 1 g q24h (renally dosed) <Marina Alvarez PA-C - Last Filed: 10/19/21 10:56> (4) Bacteremia: Code(s): R78.81 - Bacteremia <Marina Batesluan PA-C - Last Filed: 10/19/21 10:56> Status: Acute <Marina Alvarez PA-C - Last Filed: 10/19/21 10:56> Assessment and Plan: Preliminary blood cultures with gram negative bacilli in 2/2 bottles Suspect related to UTI Transition to cefepime as above Await final cultures and tailor antibiotics accordingly Patient with slight increase in WBC to 11.0 today. Remains afebrile with stable heart rate, respiratory rate and blood pressure. Patient does not meet criteria for sepsis. Lactic 1.1 <Marina SmithErik Janaluan PA-C - Last Filed: 10/19/21 10:56> (5) Seizures: Onset Date: 1999 <Marina JErik Alvarez PA-C - Last Filed: 10/19/21 10:56> Code(s): R56.9 - Unspecified convulsions <Marina Batesluan PA-C - Last Filed: 10/19/21 10:56> Status: Acute <Marina Batesluan PA-C - Last Filed: 10/19/21 10:56> Assessment and Plan: No recent seizure activity Continue Keppra <Marina SmithErik Alvarez PA-C - Last Filed: 10/19/21 10:56> (6) Generalized weakness: Code(s): R53.1 - Weakness <Marina SmithErik Alvarez PA-C - Last Filed: 10/19/21 10:56> Status: Acute <Marina Batesluan PA-C - Last Filed: 10/19/21 10:56> Assessment and Plan: Patient presented with increased weakness. Suspect this is secondary to underlying infection and acute kidney injury Appreciate PT/OT evaluation Continue fall precautions Spoke with patient's [id number] who believes the patient will need higher level of care on discharge, does not feel he is suitable to return home. Appreciate care coordination evaluation <LC Schaffer-C - Last Filed: 10/19/21 10:56> (7) Hypertension: Code(s): I10 - Essential (primary) hypertension <Marina Alvarez, OANH - Marcio Heladio
[2021-10-19] MEDS: ACETAMINOPHEN 325 MG TABLET 650 MG PO ×3 (12:05→23:03)
[2021-10-19 14:00] VITALS: BP 104/59; PULSE 67; RESP 18; TEMP 36.3; O2SAT 95
[2021-10-19] MEDS: TAMSULOSIN HCL 0.4 MG CAPSULE PO (20:24)
[2021-10-19] MEDS: DONEPEZIL HCL 10 MG TABLET PO (20:24)
[2021-10-19 22:00] VITALS: BP 128/74; PULSE 56; RESP 20; TEMP 36.1; O2SAT 98
[2021-10-20 01:53] VITALS: BP 139/64; PULSE 65; RESP 20; TEMP 36.8; O2SAT 98
[2021-10-20] MEDS: ACETAMINOPHEN 325 MG TABLET 650 MG PO ×3 (05:22→17:44)
[2021-10-20 05:56] LABS: Hematocrit 29.7 % (42.0-52.0); Hemoglobin 9.9 g/dL (14.0-18.0); Mean Corpuscular HGB Conc 33.3 g/dl (32-36); Mean Corpuscular Hemoglobin 30.8 pg (26-34); Mean Corpuscular Volume 92.5 fl (80-100); Mean Platelet Volume 10.2 fl (7.4-10.4); Platelet Count Result 188 k/mm3 (150-375); Red Blood Count 3.21 M/mm3 (4.6-6.20); Red Cell Distribution Width 13.6 % (11.5-14.5); White Blood Count 9.1 K/mm3 (4.5-10.0)
[2021-10-20 06:00] VITALS: BP 123/53; PULSE 58; RESP 20; TEMP 36.3; O2SAT 98
[2021-10-20 06:10] LABS: Anion Gap 3 mmol/L (8-16); Blood Urea Nitrogen 43 mg/dL (9-20); CRP 8.2 mg/dL (<1.0); Carbon Dioxide 27 mmol/L (22-30); Chloride 108 mmol/L (98-107); Estimated CRCL calculation 27 ml/min; Estimated Glomerular Filt Rate 34; Glucose 115 mg/dL (65-110); Potassium 3.2 mmol/L (3.4-5.0); Sodium 138 mmol/L (137-145)
--- NOTE | 2021-10-20 06:48 | WPDUROPN2 ---
Progress Note: A&P Assessment and Plan (1) Hydronephrosis with urinary obstruction due to ureteral calculus: Code(s): N13.2 - Hydronephrosis with renal and ureteral calculous obstruction Status: Acute (2) Acute kidney injury: Code(s): N17.9 - Acute kidney failure, unspecified Status: Acute (3) Acute urinary retention: Code(s): R33.8 - Other retention of urine Status: Acute Assessment and Plan: Creat. improving following bilat. stent placement. Will start Tamsulosin and Finasteride for retention. Will need bilat. ureteroscopy with stone extraction electively. Creat. continues to improve. Favor catheter out/voiding trial prior to discharge - will remove this morning. Bilat. ureteral stone extraction 1-2 weeks. Subjective Subjective Date/Time Seen: 10/20/21 06:48 Comfortable, tolerating stents Review of Systems Cardiovascular: Cardiovascular: Denies chest pain, Denies lightheadedness, Denies palpitations and Denies dyspnea Respiratory: Respiratory: Denies dyspnea Gastrointestinal: Gastrointestinal: Denies diarrhea, Denies nausea and Denies vomiting Genitourinary: Genitourinary: Denies hematuria and Denies dysuria Endocrine: Endocrine: Denies palpitations Exam Const: General: no acute distress Resp: Effort & Inspection: normal respiratory effort GI: Inspection: non-distended GI Palp: No abdominal tenderness and No Guarding due to palpation present (GI) Auscultation: normal bowel sounds Objective Data Vital Signs Vital Signs: Vital Signs - 24 hr 10/19/21 09:07 10/19/21 14:00 10/19/21 22:00 Temperature 97.4 F L 97.0 F L Pulse Rate 67 56 L Respiratory Rate 18 20 Blood Pressure 104/59 L 128/74 Pulse Oximetry 96 95 98 10/20/21 01:53 Temperature 98.2 F Pulse Rate 65 Respiratory Rate 20 Blood Pressure 139/64 Pulse Oximetry 98 Intake/Output Intake/Output: Intake & Output 10/17/21 10/18/21 10/19/21 10/20/21 23:59 23:59 23:59 23:59 Intake Total 665 2640 3230 Output Total 1500 3800 3250 Balance -636 -1160 -20 Meds/Results Medications: Active Medications Generic Name Dose Route Start Last Admin Trade Name Freq PRN Reason Stop Dose Admin Acetaminophen 650 mg 10/19/21 12:00 10/20/21 05:22 Acetaminophen 325 Mg Tablet PO 650 mg Q6H LINDA Administration Hydrocodone Bitart/Acetaminophen 1 tab 10/17/21 23:53 Hydrocodone/Acetaminophen (*Crx) 5-325 Mg Tablet PO Q6H PRN pain 7-10 Donepezil HCl 10 mg 10/18/21 00:00 10/19/21 20:24 Donepezil Hcl 10 Mg Tablet PO 10 mg HS LINDA Administration Finasteride 5 mg 10/19/21 09:00 10/19/21 08:21 Finasteride 5 Mg Tablet PO 5 mg QAM LINDA Administration Cefepime HCl 1 gm in 50 mls @ 100 mls/hr 10/19/21 07:40 10/19/21 08:53 Maxipime 1 Gm/D5w 50 Ml IVPB Infused QAM LINDA Infusion Levetiracetam 500 mg 10/18/21 00:00 10/19/21 20:24 Levetiracetam 500 Mg Tablet PO 500 mg Q12HR LINDA Administration Memantine 10 mg 10/18/21 09:00 10/19/21 20:24 Memantine 10 Mg Tablet PO 10 mg Q12HR LINDA Administration Tamsulosin HCl 0.4 mg 10/19/21 21:00 10/19/21 20:24 Tamsulosin Hcl 0.4 Mg Capsule PO 0.4 mg HS LINDA Administration Radiology Results: ITS Impressions Chest X-Ray 10/17/21 11:12 IMPRESSION: 1: NO ACUTE CARDIOPULMONARY DISEASE. Head CT 10/17/21 11:48 IMPRESSION: 1. No acute intracranial abnormality. 2: Chronic age-related findings. Abdomen/Pelvis CT 10/17/21 11:55 IMPRESSION: 1. Bilateral hydroureteronephrosis, right greater than left with multiple distal bilateral ureteral stones. Abdomen X-Ray 10/17/21 12:34 Impression: 1: Bilateral distal ureteral stones. Ureter Stent X-Ray 10/17/21 14:37 IMPRESSION: 1. Bilateral internal ureteral stent placement. Please refer to real-time procedural findings for details. Labs Labs: Laboratory Results
[2021-10-20] MEDS: SODIUM CHLORIDE 0.9% IV 1,000 ML 90 ML IV CONT ×2 (09:37→20:59)
[2021-10-20] MEDS: FINASTERIDE 5 MG TABLET PO (09:38)
[2021-10-20] MEDS: MEMANTINE 10 MG TABLET PO ×2 (09:38→20:55)
[2021-10-20] MEDS: POTASSIUM CHLORIDE 20 MEQ TABLET 40 MEQ PO (09:38)
[2021-10-20] MEDS: levETIRAcetam 500 MG TABLET PO ×2 (09:38→20:55)
[2021-10-20 09:40] VITALS: RESP 20; O2SAT 98
--- NOTE | 2021-10-20 13:43 | P.PNIM_ITS ---
Progress Note: A&P Assessment and Plan (1) Acute kidney injury: Code(s): N17.9 - Acute kidney failure, unspecified Status: Acute Assessment and Plan: Suspect obstructive etiology secondary to bilateral ureteral stones and urinary retention * Creatinine 4.5 on presentation * Improved with placement of ureteral stents and IV hydration. Creatinine 1.9 today, BUN 43 * Monitor BUN and Creatinine closely * Continue with gentle IV fluid hydration * Renally dose meds and avoid nephrotoxins (2) Hydronephrosis with urinary obstruction due to ureteral calculus: Code(s): N13.2 - Hydronephrosis with renal and ureteral calculous obstruction Status: Acute Assessment and Plan: CT on presentation showed bilateral hydroureteronephrosis with multiple distal bilateral ureteral stones * Appreciate urology consultation * Patient is now s/p cystoscopy with bilateral ureteral stent placement on 10/17 Tolerated the procedure well * White to be removed today and plan for voiding trial * Will need outpatient follow-up for bilateral stent exchange and stone extraction in 1-2 weeks (3) Urinary tract infection: Code(s): N39.0 - Urinary tract infection, site not specified Status: Acute Assessment and Plan: Urinalysis grossly abnormal. Operative note states the bladder is clearly infected. * Urine culture with growth of >100k Enterobacter cloacae, resistant to ceftriaxone * Ceftriaxone discontinued 10/19 * 10/19 Transitioned to cefepime 1 g q24h (renally dosed). Can increase to 1 g q12h if creatinine clearance increases tomorrow (4) Bacteremia: Code(s): R78.81 - Bacteremia Status: Acute Assessment and Plan: Blood cultures with growth of Enterobacter cloacae in 2 of 2 bottles, consistent with GI * Secondary to UTI * Continue IV cefepime as above * WBC normalized today. Remains afebrile with stable heart rate, respiratory rate and blood pressure. Patient does not meet criteria for sepsis. Lactic 1.1 (5) Seizures: Onset Date: 1999 Code(s): R56.9 - Unspecified convulsions Status: Acute Assessment and Plan: No recent seizure activity * Continue Keppra (6) Generalized weakness: Code(s): R53.1 - Weakness Status: Acute Assessment and Plan: Patient presented with increased weakness. Suspect this is secondary to underlying infection and acute kidney injury, as well as overall physical deconditioning * Appreciate PT/OT evaluation * Continue fall precautions * Spoke with patient's [id number] who believes the patient will need higher level of care on discharge, does not feel he is suitable to return home. Care coordination following and planning for SNF placement (7) Hypertension: Code(s): I10 - Essential (primary) hypertension Status: Acute Assessment and Plan: Blood pressures reviewed and have been stable. He has not had any elevated blood pressure readings this admission * Home lisinopril is on hold * Last BP 123/53 * Reviewing prior labs, the patient's blood pressures have been well controlled since September 2019 with no documented elevated blood pressures. He likely no longer requires lisinopril or other antihypertensive agents. (8) Hypokalemia: Code(s): E87.6 - Hypokalemia Status: Acute Assessment and Plan: Potassium is 3.2 * Administer 40 mEq p.o. KCl * Monitor BMP (9) Depression: Code(s): F32.A - Depression, unspecified
--- NOTE | 2021-10-20 13:43 | PM.IMPN ---
Progress Note: A&P Assessment and Plan (1) Acute kidney injury: Code(s): N17.9 - Acute kidney failure, unspecified Status: Acute Assessment and Plan: Suspect obstructive etiology secondary to bilateral ureteral stones and urinary retention Creatinine 4.5 on presentation Improved with placement of ureteral stents and IV hydration. Creatinine 1.9 today, BUN 43 Monitor BUN and Creatinine closely Continue with gentle IV fluid hydration Renally dose meds and avoid nephrotoxins (2) Hydronephrosis with urinary obstruction due to ureteral calculus: Code(s): N13.2 - Hydronephrosis with renal and ureteral calculous obstruction Status: Acute Assessment and Plan: CT on presentation showed bilateral hydroureteronephrosis with multiple distal bilateral ureteral stones Appreciate urology consultation Patient is now s/p cystoscopy with bilateral ureteral stent placement on 10/17 Tolerated the procedure well White to be removed today and plan for voiding trial Will need outpatient follow-up for bilateral stent exchange and stone extraction in 1-2 weeks (3) Urinary tract infection: Code(s): N39.0 - Urinary tract infection, site not specified Status: Acute Assessment and Plan: Urinalysis grossly abnormal. Operative note states the bladder is clearly infected. Urine culture with growth of >100k Enterobacter cloacae, resistant to ceftriaxone Ceftriaxone discontinued 10/19 10/19 Transitioned to cefepime 1 g q24h (renally dosed). Can increase to 1 g q12h if creatinine clearance increases tomorrow (4) Bacteremia: Code(s): R78.81 - Bacteremia Status: Acute Assessment and Plan: Blood cultures with growth of Enterobacter cloacae in 2 of 2 bottles, consistent with GI Secondary to UTI Continue IV cefepime as above WBC normalized today. Remains afebrile with stable heart rate, respiratory rate and blood pressure. Patient does not meet criteria for sepsis. Lactic 1.1 (5) Seizures: Onset Date: 1999 Code(s): R56.9 - Unspecified convulsions Status: Acute Assessment and Plan: No recent seizure activity Continue Keppra (6) Generalized weakness: Code(s): R53.1 - Weakness Status: Acute Assessment and Plan: Patient presented with increased weakness. Suspect this is secondary to underlying infection and acute kidney injury, as well as overall physical deconditioning Appreciate PT/OT evaluation Continue fall precautions Spoke with patient's [id number] who believes the patient will need higher level of care on discharge, does not feel he is suitable to return home. Care coordination following and planning for SNF placement (7) Hypertension: Code(s): I10 - Essential (primary) hypertension Status: Acute Assessment and Plan: Blood pressures reviewed and have been stable. He has not had any elevated blood pressure readings this admission Home lisinopril is on hold Last BP 123/53 Reviewing prior labs, the patient's blood pressures have been well controlled since September 2019 with no documented elevated blood pressures. He likely no longer requires lisinopril or other antihypertensive agents. (8) Hypokalemia: Code(s): E87.6 - Hypokalemia Status: Acute Assessment and Plan: Potassium is 3.2 Administer 40 mEq p.o. KCl Monitor BMP (9) Depression: Code(s): F32.A - Depression, unspecified Status: Acute Assessment and Plan: Patient clearly depressed, endorsing lack of satisfaction with daily activities Will initiate sertraline at 50 mg daily Monitor mood closely Family working on plans for change in living situation for patient with goal of helping decrease his isolation which will hopefully help his mood Subjective Date/time seen: 10/20/21 13:43 Interval history: Date of service: 10/19/2021 Krishna Saldana is an 86-year-old male with
[2021-10-20 20:17] VITALS: BP 137/61; PULSE 71; RESP 17; TEMP 36.5; O2SAT 97
[2021-10-20] MEDS: DONEPEZIL HCL 10 MG TABLET PO (20:55)
[2021-10-20] MEDS: DOCUSATE SODIUM 100 MG CAPSULE PO (20:55)
[2021-10-20] MEDS: TAMSULOSIN HCL 0.4 MG CAPSULE PO (20:55)
[2021-10-21] MEDS: ACETAMINOPHEN 325 MG TABLET 650 MG PO ×5 (01:07→23:34)
[2021-10-21 01:20] VITALS: O2SAT 96
[2021-10-21 03:47] VITALS: BP 136/77; PULSE 63; RESP 17; TEMP 36.4; O2SAT 97
[2021-10-21 06:01] LABS: Hematocrit 33.9 % (42.0-52.0); Hemoglobin 10.7 g/dL (14.0-18.0); Mean Corpuscular HGB Conc 31.6 g/dl (32-36); Mean Corpuscular Hemoglobin 30.1 pg (26-34); Mean Corpuscular Volume 95.2 fl (80-100); Mean Platelet Volume 9.7 fl (7.4-10.4); Platelet Count Result 221 k/mm3 (150-375); Red Blood Count 3.56 M/mm3 (4.6-6.20); Red Cell Distribution Width 13.7 % (11.5-14.5); White Blood Count 10.2 K/mm3 (4.5-10.0)
[2021-10-21 06:28] LABS: Anion Gap 3 mmol/L (8-16); Blood Urea Nitrogen 33 mg/dL (9-20); Carbon Dioxide 27 mmol/L (22-30); Chloride 111 mmol/L (98-107); Estimated CRCL calculation 39 ml/min; Estimated Glomerular Filt Rate 52; Glucose 112 mg/dL (65-110); Potassium 3.9 mmol/L (3.4-5.0); Sodium 141 mmol/L (137-145)
--- NOTE | 2021-10-21 06:49 | WPDUROPN2 ---
Progress Note: A&P Assessment and Plan (1) Hydronephrosis with urinary obstruction due to ureteral calculus: Code(s): N13.2 - Hydronephrosis with renal and ureteral calculous obstruction Status: Acute (2) Acute kidney injury: Code(s): N17.9 - Acute kidney failure, unspecified Status: Acute (3) Acute urinary retention: Code(s): R33.8 - Other retention of urine Status: Acute Assessment and Plan: Creat. improving following bilat. stent placement. Will start Tamsulosin and Finasteride for retention. Will need bilat. ureteroscopy with stone extraction electively. 10/20/21 Creat. continues to improve. Favor catheter out/voiding trial prior to discharge - will remove this morning. Bilat. ureteral stone extraction 1-2 weeks. 10/21/21 Voiding well with catheter out. No palpable bladder distension Creat. continues to improve. Subjective Subjective Date/Time Seen: 10/21/21 06:49 Comfortable, voiding well with catheter out Review of Systems Cardiovascular: Cardiovascular: Denies chest pain, Denies lightheadedness, Denies palpitations and Denies dyspnea Respiratory: Respiratory: Denies dyspnea Gastrointestinal: Gastrointestinal: Denies diarrhea, Denies nausea and Denies vomiting Genitourinary: Genitourinary: Denies hematuria and Denies dysuria Endocrine: Endocrine: Denies palpitations Exam Const: General: no acute distress Resp: Effort & Inspection: normal respiratory effort GI: Inspection: non-distended GI Palp: No abdominal tenderness and No Guarding due to palpation present (GI) Auscultation: normal bowel sounds Objective Data Vital Signs Vital Signs: Vital Signs - 24 hr 10/20/21 09:40 10/20/21 20:17 10/21/21 01:20 Temperature 97.7 F Pulse Rate 71 Respiratory Rate 20 17 Blood Pressure 137/61 Pulse Oximetry 98 97 96 10/21/21 03:47 Temperature 97.6 F Pulse Rate 63 Respiratory Rate 17 Blood Pressure 136/77 Pulse Oximetry 97 Intake/Output Intake/Output: Intake & Output 10/18/21 10/19/21 10/20/21 10/21/21 23:59 23:59 23:59 23:59 Intake Total 2640 3230 2130 200 Output Total 3800 3250 1800 Balance -1160 -20 330 200 Meds/Results Medications: Active Medications Generic Name Dose Route Start Last Admin Trade Name Alma Rosa PRN Reason Stop Dose Admin Acetaminophen 650 mg 10/19/21 12:00 10/21/21 06:12 Acetaminophen 325 Mg Tablet PO 650 mg Q6H LINDA Administration Hydrocodone Bitart/Acetaminophen 1 tab 10/17/21 23:53 Hydrocodone/Acetaminophen (*Crx) 5-325 Mg Tablet PO Q6H PRN pain 7-10 Docusate Sodium 100 mg 10/20/21 21:00 10/20/21 20:55 Docusate Sodium 100 Mg Capsule PO 100 mg Q12HR LINDA Administration Donepezil HCl 10 mg 10/18/21 00:00 10/20/21 20:55 Donepezil Hcl 10 Mg Tablet PO 10 mg HS LINDA Administration Finasteride 5 mg 10/19/21 09:00 10/20/21 09:38 Finasteride 5 Mg Tablet PO 5 mg QAM LINDA Administration Cefepime HCl 1 gm in 50 mls @ 100 mls/hr 10/19/21 07:40 10/20/21 11:14 Maxipime 1 Gm/D5w 50 Ml IVPB Infused QAM LINDA Infusion Sodium Chloride 1,000 mls @ 90 mls/hr 10/20/21 08:05 10/20/21 20:59 Normal Saline Iv IV CONT 90 mls/hr .[id number] LINDA Administration Levetiracetam 500 mg 10/18/21 00:00 10/20/21 20:55 Levetiracetam 500 Mg Tablet PO 500 mg Q12HR LINDA Administration Memantine 10 mg 10/18/21 09:00 10/20/21 20:55 Memantine 10 Mg Tablet PO 10 mg Q12HR LINDA Administration Polyethylene Glycol 17 gm 10/20/21 13:41 Polyethylene Glycol 3350 17 Gm Powd.Pack PO QAM PRN Constipation Sertraline HCl 50 mg 10/21/21 09:00 Sertraline Hcl 50 Mg Tablet PO QAM LINDA Tamsulosin HCl 0.4 mg 10/19/21 21:00 10/20/21 20:55 Tamsulosin Hcl 0.4 Mg Capsule PO 0.4 mg HS LINDA Administration Radiology Results: ITS Impressions Chest X-Ray 10/17/21 11:12 IMPRESSION: 1: NO ACUTE CARDIOPULMONAR
[2021-10-21] MEDS: DOCUSATE SODIUM 100 MG CAPSULE PO ×2 (08:24→20:26)
[2021-10-21] MEDS: levETIRAcetam 500 MG TABLET PO ×2 (08:24→20:26)
[2021-10-21] MEDS: FINASTERIDE 5 MG TABLET PO (08:24)
[2021-10-21] MEDS: MEMANTINE 10 MG TABLET PO ×2 (08:24→20:26)
[2021-10-21] MEDS: SERTRALINE HCL 50 MG TABLET PO (08:24)
[2021-10-21] MEDS: HYDROcodone/acetaminophen (*CRX) 5-325 MG TABLET 1 TAB PO (08:37)
--- NOTE | 2021-10-21 10:13 | P.PNIM_ITS ---
Progress Note: A&P Assessment and Plan (1) Acute kidney injury: Code(s): N17.9 - Acute kidney failure, unspecified Status: Acute Assessment and Plan: Suspect obstructive etiology secondary to bilateral ureteral stones and urinary retention * Creatinine 4.5 on presentation * Improved with placement of ureteral stents and IV hydration. Creatinine 1.3 today, BUN 33 * Monitor BUN and Creatinine closely * Continue with gentle IV fluid hydration * Renally dose meds and avoid nephrotoxins (2) Hydronephrosis with urinary obstruction due to ureteral calculus: Code(s): N13.2 - Hydronephrosis with renal and ureteral calculous obstruction Status: Acute Assessment and Plan: CT on presentation showed bilateral hydroureteronephrosis with multiple distal bilateral ureteral stones * urology consultation * Patient is now s/p cystoscopy with bilateral ureteral stent placement on 10/17 Tolerated the procedure well * White removed yesterday, voiding without difficulty * Will need outpatient follow-up for bilateral stent exchange and stone extraction in 1-2 weeks (3) Urinary tract infection: Code(s): N39.0 - Urinary tract infection, site not specified Status: Acute Assessment and Plan: Urinalysis grossly abnormal. Operative note states the bladder is clearly infected. * Urine culture with growth of >100k Enterobacter cloacae, resistant to ceftriaxone * Ceftriaxone discontinued 10/19 * 10/19 Transitioned to cefepime 1 g q24h (renally dosed). Can increase to 1 g q12h if creatinine clearance increases to >60 (4) Bacteremia: Code(s): R78.81 - Bacteremia Status: Acute Assessment and Plan: Blood cultures with growth of Enterobacter cloacae in 2 of 2 bottles, consistent with GI * Secondary to UTI * Continue IV cefepime as above * WBC normalized. Remains afebrile with stable heart rate, respiratory rate and blood pressure. Patient does not meet criteria for sepsis. Lactic 1.1 (5) Seizures: Onset Date: 1999 Code(s): R56.9 - Unspecified convulsions Status: Acute Assessment and Plan: No recent seizure activity * Continue Keppra (6) Generalized weakness: Code(s): R53.1 - Weakness Status: Acute Assessment and Plan: Patient presented with increased weakness. Suspect this is secondary to underlying infection and acute kidney injury, as well as overall physical deconditioning * Appreciate PT/OT evaluation * Continue fall precautions * Spoke with patient's [id number] who believes the patient will need higher level of care on discharge, does not feel he is suitable to return home. Care coordination following and planning for SNF placement (7) Hypertension: Code(s): I10 - Essential (primary) hypertension Status: Acute Assessment and Plan: Blood pressures reviewed and have been stable. He has not had any elevated blood pressure readings this admission * Home lisinopril is on hold * Last BP 136/77 * Reviewing prior labs, the patient's blood pressures have been well controlled since September 2019 with no documented elevated blood pressures. He likely no longer requires lisinopril or other antihypertensive agents. (8) Hypokalemia: Code(s): E87.6 - Hypokalemia Status: Acute Assessment and Plan: * Monitor BMP and replace as indicated (9) Depression: Code(s): F32.A - Depression, unspecified Status: Acu
--- NOTE | 2021-10-21 10:13 | PM.IMPN ---
Progress Note: A&P Assessment and Plan (1) Acute kidney injury: Code(s): N17.9 - Acute kidney failure, unspecified Status: Acute Assessment and Plan: Suspect obstructive etiology secondary to bilateral ureteral stones and urinary retention Creatinine 4.5 on presentation Improved with placement of ureteral stents and IV hydration. Creatinine 1.3 today, BUN 33 Monitor BUN and Creatinine closely Continue with gentle IV fluid hydration Renally dose meds and avoid nephrotoxins (2) Hydronephrosis with urinary obstruction due to ureteral calculus: Code(s): N13.2 - Hydronephrosis with renal and ureteral calculous obstruction Status: Acute Assessment and Plan: CT on presentation showed bilateral hydroureteronephrosis with multiple distal bilateral ureteral stones urology consultation Patient is now s/p cystoscopy with bilateral ureteral stent placement on 10/17 Tolerated the procedure well White removed yesterday, voiding without difficulty Will need outpatient follow-up for bilateral stent exchange and stone extraction in 1-2 weeks (3) Urinary tract infection: Code(s): N39.0 - Urinary tract infection, site not specified Status: Acute Assessment and Plan: Urinalysis grossly abnormal. Operative note states the bladder is clearly infected. Urine culture with growth of >100k Enterobacter cloacae, resistant to ceftriaxone Ceftriaxone discontinued 10/19 10/19 Transitioned to cefepime 1 g q24h (renally dosed). Can increase to 1 g q12h if creatinine clearance increases to >60 (4) Bacteremia: Code(s): R78.81 - Bacteremia Status: Acute Assessment and Plan: Blood cultures with growth of Enterobacter cloacae in 2 of 2 bottles, consistent with GI Secondary to UTI Continue IV cefepime as above WBC normalized. Remains afebrile with stable heart rate, respiratory rate and blood pressure. Patient does not meet criteria for sepsis. Lactic 1.1 (5) Seizures: Onset Date: 1999 Code(s): R56.9 - Unspecified convulsions Status: Acute Assessment and Plan: No recent seizure activity Continue Keppra (6) Generalized weakness: Code(s): R53.1 - Weakness Status: Acute Assessment and Plan: Patient presented with increased weakness. Suspect this is secondary to underlying infection and acute kidney injury, as well as overall physical deconditioning Appreciate PT/OT evaluation Continue fall precautions Spoke with patient's [id number] who believes the patient will need higher level of care on discharge, does not feel he is suitable to return home. Care coordination following and planning for SNF placement (7) Hypertension: Code(s): I10 - Essential (primary) hypertension Status: Acute Assessment and Plan: Blood pressures reviewed and have been stable. He has not had any elevated blood pressure readings this admission Home lisinopril is on hold Last BP 136/77 Reviewing prior labs, the patient's blood pressures have been well controlled since September 2019 with no documented elevated blood pressures. He likely no longer requires lisinopril or other antihypertensive agents. (8) Hypokalemia: Code(s): E87.6 - Hypokalemia Status: Acute Assessment and Plan: Monitor BMP and replace as indicated (9) Depression: Code(s): F32.A - Depression, unspecified Status: Acute Assessment and Plan: Patient clearly depressed, endorsing lack of satisfaction with daily activities Will initiate sertraline at 50 mg daily Monitor mood closely Family working on plans for change in living situation for patient with goal of helping decrease his isolation which will hopefully help his mood Subjective Date/time seen: 10/21/21 10:13 Interval history: Date of service: 10/19/2021 Krishna Saldana is an 86-year-old male with a history of dementia, hype
[2021-10-21] MEDS: SODIUM CHLORIDE 0.9% IV 1,000 ML 90 ML IV CONT ×2 (10:26→20:24)
[2021-10-21 18:03] VITALS: O2SAT 96
[2021-10-21 20:21] VITALS: BP 135/65; PULSE 59; RESP 20; TEMP 36.1; O2SAT 99
[2021-10-21] MEDS: DONEPEZIL HCL 10 MG TABLET PO (20:26)
[2021-10-21] MEDS: TAMSULOSIN HCL 0.4 MG CAPSULE PO (20:26)
[2021-10-21 20:51] VITALS: O2SAT 95
[2021-10-22 03:45] VITALS: BP 124/64; PULSE 63; RESP 17; TEMP 36.6; O2SAT 98
[2021-10-22] MEDS: ACETAMINOPHEN 325 MG TABLET 650 MG PO (05:19)
[2021-10-22 06:33] LABS: Basophils Percent Auto 0.3 % (0.2-1.2); Eosinophils Absolute Auto 0.5 K/mm3 (0-0.3); Eosinophils Percent Auto 4.1 % (0-4.4); Hemoglobin 9.8 g/dL (14.0-18.0); Immature Granulocyte Absolute 0.13 K/mm3 (0.00-0.031); Immature Granulocyte Percent A 1.1 % (0-0.5); Lymphocytes Absolute Auto 0.86 K/mm3 (0.9-3.2); Mean Corpuscular HGB Conc 32.7 g/dl (32-36); Mean Corpuscular Hemoglobin 30.7 pg (26-34); Mean Platelet Volume 9.9 fl (7.4-10.4); Monocytes Absolute Auto 0.7 K/mm3 (0.1-0.6); Monocytes Percent Auto 5.3 % (2.6-8.5); Neutrophils Absolute Auto 10.1 K/mm3 (1.3-6.7); Neutrophils Percent Auto 82.2 % (45.5-73.1); Platelet Count Result 240 k/mm3 (150-375); Red Blood Count 3.19 M/mm3 (4.6-6.20); Red Cell Distribution Width 13.9 % (11.5-14.5); White Blood Count 12.3 K/mm3 (4.5-10.0)
[2021-10-22 06:47] LABS: Anion Gap 4 mmol/L (8-16); Blood Urea Nitrogen 28 mg/dL (9-20); Calcium 7.7 mg/dL (8.4-10.2); Carbon Dioxide 24 mmol/L (22-30); Chloride 114 mmol/L (98-107); Estimated CRCL calculation 36 ml/min; Estimated Glomerular Filt Rate 48; Glucose 102 mg/dL (65-110); Potassium 3.5 mmol/L (3.4-5.0); Sodium 142 mmol/L (137-145)
[2021-10-22 08:00] VITALS: O2SAT 98
[2021-10-22] MEDS: SODIUM CHLORIDE 0.9% IV 1,000 ML 90 ML IV CONT (09:09)
[2021-10-22] MEDS: levETIRAcetam 500 MG TABLET PO ×2 (09:30→20:34)
[2021-10-22] MEDS: SERTRALINE HCL 50 MG TABLET PO (09:30)
[2021-10-22] MEDS: FINASTERIDE 5 MG TABLET PO (09:31)
[2021-10-22] MEDS: MEMANTINE 10 MG TABLET PO ×2 (09:31→20:34)
--- NOTE | 2021-10-22 11:09 | P.PNIM_ITS ---
Progress Note: A&P Assessment and Plan (1) Acute kidney injury: Code(s): N17.9 - Acute kidney failure, unspecified Status: Acute Assessment and Plan: Suspect obstructive etiology secondary to bilateral ureteral stones and urinary retention * Creatinine 4.5 on presentation * Improved with placement of ureteral stents and IV hydration. Creatinine 1.4 today, BUN 28 * Monitor BUN and Creatinine closely. Hopeful discharge tomorrow if continued improvement * Will discontinue IV fluids as patient has been adequately hydrated and tolerating p.o. intake * Renally dose meds and avoid nephrotoxins (2) Hydronephrosis with urinary obstruction due to ureteral calculus: Code(s): N13.2 - Hydronephrosis with renal and ureteral calculous obstruction Status: Acute Assessment and Plan: CT on presentation showed bilateral hydroureteronephrosis with multiple distal bilateral ureteral stones * Appreciate urology consultation * Patient is now s/p cystoscopy with bilateral ureteral stent placement on 10/17 Tolerated the procedure well * White removed 10/20, voiding without difficulty * Will need outpatient follow-up for bilateral stent exchange and stone extraction in 1-2 weeks (3) Urinary tract infection: Code(s): N39.0 - Urinary tract infection, site not specified Status: Acute Assessment and Plan: Urinalysis grossly abnormal. Operative note states the bladder is clearly infected. * Urine culture with growth of >100k Enterobacter cloacae, resistant to ceftriaxone * Ceftriaxone discontinued 10/19 * 10/19 Transitioned to cefepime. Increase to 2 g q24h (renal dosing) given improved CrCl (4) Bacteremia: Code(s): R78.81 - Bacteremia Status: Acute Assessment and Plan: Blood cultures with growth of Enterobacter cloacae in 2 of 2 bottles. Source of infection is UTI * Continue IV cefepime as above * Mild increase in WBC to 12.3 today. Remains afebrile with stable heart rate, respiratory rate and blood pressure. Patient does not meet criteria for sepsis. Lactic 1.1 (5) Seizures: Onset Date: 1999 Code(s): R56.9 - Unspecified convulsions Status: Acute Assessment and Plan: No recent seizure activity * Continue Keppra (6) Generalized weakness: Code(s): R53.1 - Weakness Status: Acute Assessment and Plan: Patient presented with increased weakness. Suspect this is secondary to underlying infection and acute kidney injury, as well as overall physical deconditioning * Appreciate PT/OT evaluation * Continue fall precautions * Spoke with patient's [id number] who believes the patient will need higher level of care on discharge, does not feel he is suitable to return home. Care coordination following and planning for SNF placement (7) Hypertension: Code(s): I10 - Essential (primary) hypertension Status: Acute Assessment and Plan: Blood pressures reviewed and have been stable. He has not had any elevated blood pressure readings this admission * Home lisinopril is on hold * Last BP 124/64 * Reviewing prior labs, the patient's blood pressures have been well controlled since September 2019 with no documented elevated blood pressures. He likely no l onger requires lisinopril or other antihypertensive agents. (8) Hypokalemia: Code(s): E87.6 - Hypokalemia Status: Acute Assessment and Plan: Resolved. Potassim 3.5 today * Monitor BMP and replace as indicated
--- NOTE | 2021-10-22 11:09 | PM.IMPN ---
Progress Note: A&P Assessment and Plan (1) Acute kidney injury: Code(s): N17.9 - Acute kidney failure, unspecified Status: Acute Assessment and Plan: Suspect obstructive etiology secondary to bilateral ureteral stones and urinary retention Creatinine 4.5 on presentation Improved with placement of ureteral stents and IV hydration. Creatinine 1.4 today, BUN 28 Monitor BUN and Creatinine closely. Hopeful discharge tomorrow if continued improvement Will discontinue IV fluids as patient has been adequately hydrated and tolerating p.o. intake Renally dose meds and avoid nephrotoxins (2) Hydronephrosis with urinary obstruction due to ureteral calculus: Code(s): N13.2 - Hydronephrosis with renal and ureteral calculous obstruction Status: Acute Assessment and Plan: CT on presentation showed bilateral hydroureteronephrosis with multiple distal bilateral ureteral stones Appreciate urology consultation Patient is now s/p cystoscopy with bilateral ureteral stent placement on 10/17 Tolerated the procedure well White removed 10/20, voiding without difficulty Will need outpatient follow-up for bilateral stent exchange and stone extraction in 1-2 weeks (3) Urinary tract infection: Code(s): N39.0 - Urinary tract infection, site not specified Status: Acute Assessment and Plan: Urinalysis grossly abnormal. Operative note states the bladder is clearly infected. Urine culture with growth of >100k Enterobacter cloacae, resistant to ceftriaxone Ceftriaxone discontinued 10/19 10/19 Transitioned to cefepime. Increase to 2 g q24h (renal dosing) given improved CrCl (4) Bacteremia: Code(s): R78.81 - Bacteremia Status: Acute Assessment and Plan: Blood cultures with growth of Enterobacter cloacae in 2 of 2 bottles. Source of infection is UTI Continue IV cefepime as above Mild increase in WBC to 12.3 today. Remains afebrile with stable heart rate, respiratory rate and blood pressure. Patient does not meet criteria for sepsis. Lactic 1.1 (5) Seizures: Onset Date: 1999 Code(s): R56.9 - Unspecified convulsions Status: Acute Assessment and Plan: No recent seizure activity Continue Keppra (6) Generalized weakness: Code(s): R53.1 - Weakness Status: Acute Assessment and Plan: Patient presented with increased weakness. Suspect this is secondary to underlying infection and acute kidney injury, as well as overall physical deconditioning Appreciate PT/OT evaluation Continue fall precautions Spoke with patient's [id number] who believes the patient will need higher level of care on discharge, does not feel he is suitable to return home. Care coordination following and planning for SNF placement (7) Hypertension: Code(s): I10 - Essential (primary) hypertension Status: Acute Assessment and Plan: Blood pressures reviewed and have been stable. He has not had any elevated blood pressure readings this admission Home lisinopril is on hold Last BP 124/64 Reviewing prior labs, the patient's blood pressures have been well controlled since September 2019 with no documented elevated blood pressures. He likely no longer requires lisinopril or other antihypertensive agents. (8) Hypokalemia: Code(s): E87.6 - Hypokalemia Status: Acute Assessment and Plan: Resolved. Potassim 3.5 today Monitor BMP and replace as indicated (9) Depression: Code(s): F32.A - Depression, unspecified Status: Acute Assessment and Plan: Patient endorsed depression lack of satisfaction in daily activities Continue sertraline, started on 10/21 at 50 mg. Follow up outpatient for uptitration as needed Monitor mood closely Family working on plans for change in living situation for patient with goal of helping decrease his isolation which will hopefully help his mood Subjective Da
--- NOTE | 2021-10-22 13:35 | PC.NURSE ---
On 10/22/21, the student, [Mustapha Galloway], provided care and completed [facility] documentation on this patient. I have reviewed the student's documentation and agree with the findings.
[2021-10-22 13:56] VITALS: BP 137/68; PULSE 62; RESP 15; TEMP 36.4; O2SAT 99
[2021-10-22 14:00] VITALS: BP 155/66; PULSE 55; RESP 20; TEMP 36.2; O2SAT 100
[2021-10-22] MEDS: FAMOTIDINE 20 MG/2 ML VIAL IV PUSH (20:34)
[2021-10-22] MEDS: DONEPEZIL HCL 10 MG TABLET PO (20:34)
[2021-10-22] MEDS: TAMSULOSIN HCL 0.4 MG CAPSULE PO (20:34)
[2021-10-22] MEDS: DOCUSATE SODIUM 100 MG CAPSULE PO (20:34)
[2021-10-22 20:49] VITALS: BP 132/67; PULSE 61; RESP 18; TEMP 36.4; O2SAT 99
[2021-10-22 23:24] VITALS: O2SAT 96
[2021-10-23 04:35] VITALS: BP 135/68; PULSE 68; RESP 16; TEMP 36.8; O2SAT 96
[2021-10-23] MEDS: HYDROcodone/acetaminophen (*CRX) 5-325 MG TABLET 1 TAB PO ×2 (04:57→10:28)
[2021-10-23 06:02] LABS: Hematocrit 28.8 % (42.0-52.0); Hemoglobin 9.1 g/dL (14.0-18.0); Mean Corpuscular HGB Conc 31.6 g/dl (32-36); Mean Corpuscular Hemoglobin 30.5 pg (26-34); Mean Corpuscular Volume 96.6 fl (80-100); Mean Platelet Volume 9.6 fl (7.4-10.4); Platelet Count Result 229 k/mm3 (150-375); Red Blood Count 2.98 M/mm3 (4.6-6.20); Red Cell Distribution Width 14.1 % (11.5-14.5); White Blood Count 15.9 K/mm3 (4.5-10.0)
[2021-10-23 06:14] LABS: Anion Gap 4 mmol/L (8-16); Blood Urea Nitrogen 24 mg/dL (9-20); Calcium 8.1 mg/dL (8.4-10.2); Carbon Dioxide 23 mmol/L (22-30); Chloride 114 mmol/L (98-107); Estimated CRCL calculation 39 ml/min; Estimated Glomerular Filt Rate 52; Glucose 107 mg/dL (65-110); Potassium 3.6 mmol/L (3.4-5.0); Sodium 141 mmol/L (137-145)
--- NOTE | 2021-10-23 06:57 | WPDUROPN2 ---
Progress Note: A&P Assessment and Plan (1) Bacteremia: Code(s): R78.81 - Bacteremia Status: Acute (2) Hydronephrosis with urinary obstruction due to ureteral calculus: Code(s): N13.2 - Hydronephrosis with renal and ureteral calculous obstruction Status: Acute (3) Urinary tract infection: Code(s): N39.0 - Urinary tract infection, site not specified Status: Acute Assessment and Plan: Renal function stable following catheter removal - retention does not appear to be a problem. On Cefepime for Enterobacter bacteremia Will need bilateral ureteral stone extracton in ~2 weeks. Subjective Subjective Date/Time Seen: 10/23/21 06:57 Comfortable, continues to void well with catheter out. Review of Systems Cardiovascular: Cardiovascular: Denies chest pain, Denies lightheadedness, Denies palpitations and Denies dyspnea Respiratory: Respiratory: Denies dyspnea Gastrointestinal: Gastrointestinal: Denies diarrhea, Denies nausea and Denies vomiting Genitourinary: Genitourinary: Denies hematuria and Denies dysuria Endocrine: Endocrine: Denies palpitations Exam Const: General: no acute distress Resp: Effort & Inspection: normal respiratory effort GI: Inspection: non-distended GI Palp: No abdominal tenderness and No Guarding due to palpation present (GI) Auscultation: normal bowel sounds Objective Data Vital Signs Vital Signs: Vital Signs - 24 hr 10/22/21 08:00 10/22/21 13:56 10/22/21 14:00 Temperature 97.6 F 97.2 F L Pulse Rate 62 55 L Respiratory Rate 15 20 Blood Pressure 137/68 155/66 H Pulse Oximetry 98 99 100 10/22/21 20:49 10/22/21 23:24 10/23/21 04:35 Temperature 97.6 F 98.2 F Pulse Rate 61 68 Respiratory Rate 18 16 Blood Pressure 132/67 135/68 Pulse Oximetry 99 96 96 Intake/Output Intake/Output: Intake & Output 10/20/21 10/21/21 10/22/21 10/23/21 23:59 23:59 23:59 23:59 Intake Total 2130 3290 1740 240 Output Total 1800 Balance 330 3290 1740 240 Meds/Results Medications: Active Medications Generic Name Dose Route Start Last Admin Trade Name Freq PRN Reason Stop Dose Admin Acetaminophen 650 mg 10/22/21 11:33 Acetaminophen 325 Mg Tablet PO Q6H PRN Pain 1-6 Hydrocodone Bitart/Acetaminophen 1 tab 10/17/21 23:53 10/23/21 04:57 Hydrocodone/Acetaminophen (*Crx) 5-325 Mg Tablet PO 1 tab Q6H PRN Administration pain 7-10 Docusate Sodium 100 mg 10/20/21 21:00 10/22/21 20:34 Docusate Sodium 100 Mg Capsule PO 100 mg Q12HR LINDA Administration Donepezil HCl 10 mg 10/18/21 00:00 10/22/21 20:34 Donepezil Hcl 10 Mg Tablet PO 10 mg HS LINDA Administration Famotidine 20 mg 10/22/21 21:00 10/22/21 20:34 Famotidine 20 Mg/2 Ml Vial IV PUSH 20 mg Q12HR LINDA Administration Finasteride 5 mg 10/19/21 09:00 10/22/21 09:31 Finasteride 5 Mg Tablet PO 5 mg QAM LINDA Administration Cefepime HCl 2 gm in 50 mls @ 100 mls/hr 10/23/21 10:00 Maxipime 2 Gm/D5w 50 Ml IVPB Q24H LINDA Levetiracetam 500 mg 10/18/21 00:00 10/22/21 20:34 Levetiracetam 500 Mg Tablet PO 500 mg Q12HR LINDA Administration Memantine 10 mg 10/18/21 09:00 10/22/21 20:34 Memantine 10 Mg Tablet PO 10 mg Q12HR LINDA Administration Polyethylene Glycol 17 gm 10/20/21 13:41 Polyethylene Glycol 3350 17 Gm Powd.Pack PO QAM PRN Constipation Sertraline HCl 50 mg 10/21/21 09:00 10/22/21 09:30 Sertraline Hcl 50 Mg Tablet PO 50 mg QAM LINDA Administration Tamsulosin HCl 0.4 mg 10/19/21 21:00 10/22/21 20:34 Tamsulosin Hcl 0.4 Mg Capsule PO 0.4 mg HS LINDA Administration Radiology Results: ITS Impressions Chest X-Ray 10/17/21 11:12 IMPRESSION: 1: NO ACUTE CARDIOPULMONARY DISEASE. Head CT 10/17/21 11:48 IMPRESSION: 1. No acute intracranial abnormality. 2: Chronic age-related findings. Abdomen/Pelvis CT 10/17/21 11:55 IMPRESSION:
[2021-10-23 07:42] LABS: Lactic Acid Reflex 0.7 mmol/L (0.7-2.1)
[2021-10-23 07:45] LABS: CRP 8.4 mg/dL (<1.0)
[2021-10-23 07:56] LABS: Erythrocyte Sedimentation Rate > 140 mm/hr (0-20)
[2021-10-23 07:59] LABS: Procalcitonin 0.2 ng/mL
[2021-10-23 08:00] VITALS: BP 118/76; PULSE 62; RESP 14; TEMP 36.4; O2SAT 100
[2021-10-23 08:21] VITALS: RESP 16; O2SAT 96
[2021-10-23] MEDS: levETIRAcetam 500 MG TABLET PO ×2 (09:07→20:28)
[2021-10-23] MEDS: MEMANTINE 10 MG TABLET PO ×2 (09:07→20:29)
[2021-10-23] MEDS: FINASTERIDE 5 MG TABLET PO (09:07)
[2021-10-23] MEDS: SERTRALINE HCL 50 MG TABLET PO (09:07)
[2021-10-23] MEDS: FAMOTIDINE 20 MG/2 ML VIAL IV PUSH ×2 (09:07→20:28)
--- NOTE | 2021-10-23 11:19 | PCNWS ---
Weekly nutritional screen. Patient is tolerating current diet with adequate intake. No weight loss reported. No nutritional needs at this time.
--- NOTE | 2021-10-23 11:53 | PM.IMPN ---
Progress Note: A&P Assessment and Plan (1) Acute kidney injury: Code(s): N17.9 - Acute kidney failure, unspecified Status: Acute Assessment and Plan: Suspect obstructive etiology secondary to bilateral ureteral stones and urinary retention Creatinine 4.5 on presentation, has trended down today to normal with a Creatinine of 1.3 and BUN of 24 with help of the stents and IVF. Discharge held today as WBC count is climbing and he does not feel well overall. Renally dose meds and avoid nephrotoxins (2) Hydronephrosis with urinary obstruction due to ureteral calculus: Code(s): N13.2 - Hydronephrosis with renal and ureteral calculous obstruction Status: Acute Assessment and Plan: CT on presentation showed bilateral hydroureteronephrosis with multiple distal bilateral ureteral stones Urology manging Patient is now s/p cystoscopy with bilateral ureteral stent placement on 10/17 Tolerated the procedure well White removed 10/20, voiding without difficulty and no complaints today. Will need outpatient follow-up for bilateral stent exchange and stone extraction in 1-2 weeks (3) Urinary tract infection: Qualifiers: Urinary tract infection type: site unspecified Hematuria presence: without hematuria Qualified Code(s): N39.0 - Urinary tract infection, site not specified Code(s): N39.0 - Urinary tract infection, site not specified Status: Acute Assessment and Plan: Urinalysis grossly abnormal. Operative note states the bladder is clearly infected. Urine culture with growth of >100k Enterobacter cloacae, resistant to ceftriaxone Ceftriaxone discontinued 10/19 10/19 Transitioned to cefepime. Increase to 2 g q24h (renal dosing) given improved CrCl (4) Bacteremia: Code(s): R78.81 - Bacteremia Status: Acute Assessment and Plan: Blood cultures with growth of Enterobacter cloacae in 2 of 2 bottles. Source of infection is UTI Continue IV cefepime as above Mild increase in WBC to 15.9 today. Remains afebrile with stable heart rate, respiratory rate and blood pressure. As there is an increase in his Leukocytosis despite being on tailored abx, a CRP, ESR, Procal and Lactic are ordered with the ESR being grossly elevated at >140. CXR 2-view is ordered. Will obtain another UA as well given pt's weakness and fatigue today. Not currently meeting SIRS/Sepsis criteria. I am guarded with regards to this patient's condition today as he is appearing to decline. (5) Seizures: Onset Date: 1999 Code(s): R56.9 - Unspecified convulsions Status: Acute Assessment and Plan: No recent seizure activity Continue Gwen (6) Generalized weakness: Code(s): R53.1 - Weakness Status: Acute Assessment and Plan: Patient presented with increased weakness. Suspect this is secondary to underlying infection and acute kidney injury, as well as overall physical deconditioning Continue PT/OT as patient is having a current overall decline in general condition with rising WBC count. Today required assist to get back to bed and also was only able to do in bed exercises for strengthening. Continue fall precautions Spoke with patient's [id number] who believes the patient will need higher level of care on discharge, does not feel he is suitable to return home. Care coordination following and planning for SNF placement (7) Hypertension: Qualifiers: Hypertension type: unspecified Qualified Code(s): I10 - Essential (primary) hypertension Code(s): I10 - Essential (primary) hypertension Status: Acute Assessment and Plan: Blood pressures reviewed and have been stable. He has not had any elevated blood pressure readings this admission Home lisinopril is on hold Last BP 124/64 Reviewing prior labs, the patient's blood pressures have been well controlled since September 2019 with no documented elevated
[2021-10-23 14:00] VITALS: BP 125/85; PULSE 71; RESP 15; TEMP 36.4; O2SAT 98
--- NOTE | 2021-10-23 14:03 | PC.NURSE ---
On 10/23/21, the student, [Sanjiv Nix & Ana Rolon], provided care and completed [facility] documentation on this patient. I have reviewed the student's documentation and agree with the findings.
[2021-10-23 18:41] VITALS: BP 140/66; PULSE 70; RESP 16; TEMP 36.2; O2SAT 98
[2021-10-23 19:46] VITALS: BP 148/72; PULSE 66; RESP 20; TEMP 35.9; O2SAT 100
[2021-10-23 20:12] LABS: Add Urine Microscopic? YES; Appearance Urine Cloudy (Clear); Bacteria Urine Trace /hpf; Bilirubin Urine Negative (Negative); Blood Urine 3+ (Negative); Color Urine Yellow (Yellow); Glucose Urine UA Negative (Negative); Ketones Urine Negative (Negative); Leukocyte Esterase Ur 1+ LEU/UL (Negative); Mucus Urine Rare /lpf; Nitrate Urine Negative (Negative); Protein Urine Negative (Negative); RBC Urine 51-75 /hpf (0-2); Specific Grav Ur 1.013 (1.001-1.035); Squamous Epithelial Cell Urine Rare /hpf (Few); Urobilinogen Urine Negative mg/dL (<2.0); WBC Urine 21-30 /hpf
[2021-10-23] MEDS: DONEPEZIL HCL 10 MG TABLET PO (20:28)
[2021-10-23] MEDS: DOCUSATE SODIUM 100 MG CAPSULE PO (20:28)
[2021-10-23] MEDS: TAMSULOSIN HCL 0.4 MG CAPSULE PO (20:29)
[2021-10-24 04:36] VITALS: BP 123/58; PULSE 92; RESP 20; TEMP 36.2; O2SAT 97
[2021-10-24] MEDS: FAMOTIDINE 20 MG/2 ML VIAL IV PUSH ×2 (09:12→20:16)
[2021-10-24] MEDS: levETIRAcetam 500 MG TABLET PO ×2 (09:12→20:17)
[2021-10-24] MEDS: FINASTERIDE 5 MG TABLET PO (09:12)
[2021-10-24] MEDS: DOCUSATE SODIUM 100 MG CAPSULE PO ×2 (09:12→20:16)
[2021-10-24] MEDS: MEMANTINE 10 MG TABLET PO ×2 (09:13→20:17)
[2021-10-24] MEDS: SERTRALINE HCL 50 MG TABLET PO (09:13)
[2021-10-24 09:24] VITALS: RESP 20; O2SAT 97
--- NOTE | 2021-10-24 12:23 | PM.IMPN ---
Progress Note: A&P Assessment and Plan (1) Acute kidney injury: Code(s): N17.9 - Acute kidney failure, unspecified Status: Acute Assessment and Plan: creatinine on admission was 4.5, baseline creatinine of 1 earlier this month. Suspect obstructive etiology secondary to bilateral ureteral stones and urinary retention Creatinine had continued to improve down to 1.3/1.4 now (2) Hydronephrosis with urinary obstruction due to ureteral calculus: Code(s): N13.2 - Hydronephrosis with renal and ureteral calculous obstruction Status: Acute Assessment and Plan: CT on presentation showed bilateral hydroureteronephrosis with multiple distal bilateral ureteral stones Urology consulted in managing Patient is now s/p cystoscopy with bilateral ureteral stent placement on 10/17 Tolerated the procedure well White removed 10/20, voiding without difficulty patient will need outpatient follow-up for bilateral stent exchange and stone extraction in 1-2 weeks (3) Urinary tract infection: Qualifiers: Urinary tract infection type: site unspecified Hematuria presence: without hematuria Qualified Code(s): N39.0 - Urinary tract infection, site not specified Code(s): N39.0 - Urinary tract infection, site not specified Status: Acute Assessment and Plan: Urinalysis grossly abnormal. Operative note states the bladder is clearly infected. Urine culture with growth of >100k Enterobacter cloacae, resistant to ceftriaxone Ceftriaxone discontinued 10/19 10/19 Transitioned to cefepime. Increase to 2 g q24h (renal dosing) given improved CrCl (4) Bacteremia: Code(s): R78.81 - Bacteremia Status: Acute Assessment and Plan: Blood cultures with growth of Enterobacter cloacae in 2 of 2 bottles. Source of infection is UTI Continue IV cefepime as above Mild increase in WBC to 15.9 10/23 but remains afebrile with stable vitals. Added vancomycin and repeat blood cultures ordered due to increased in leukocytosis (5) Seizures: Onset Date: 1999 Code(s): R56.9 - Unspecified convulsions Status: Acute Assessment and Plan: No recent seizure activity Continue Keppra (6) Generalized weakness: Code(s): R53.1 - Weakness Status: Acute Assessment and Plan: Patient presented with increased weakness. Suspect this is secondary to underlying infection and acute kidney injury, as well as overall physical deconditioning Continue PT/OT as patient is having a current overall decline in general condition with rising WBC count. Today required assist to get back to bed and also was only able to do in bed exercises for strengthening. Continue fall precautions Spoke with patient's [id number] who believes the patient will need higher level of care on discharge, does not feel he is suitable to return home. Care coordination following and planning for SNF placement (7) Hypertension: Qualifiers: Hypertension type: unspecified Qualified Code(s): I10 - Essential (primary) hypertension Code(s): I10 - Essential (primary) hypertension Status: Acute Assessment and Plan: lisinopril on hold due to TRUONG (8) Hypokalemia: Code(s): E87.6 - Hypokalemia Status: Acute Assessment and Plan: Replace monitor (9) Depression: Qualifiers: Depression Type: unspecified Qualified Code(s): F32.A - Depression, unspecified Code(s): F32.A - Depression, unspecified Status: Acute Assessment and Plan: Patient endorsed depression lack of satisfaction in daily activities Continue sertraline, started on 10/21 at 50 mg. Follow up outpatient for uptitration as needed Monitor mood closely Family working on plans for change in living situation for patient with goal of helping decrease his isolation which will hopefully help his mood Additional Plan disposition PT OT recommend
[2021-10-24 12:47] LABS: Basophils Absolute Auto 0.1 K/mm3 (0.0-0.1); Basophils Percent Auto 0.2 % (0.2-1.2); Eosinophils Absolute Auto 0.3 K/mm3 (0-0.3); Eosinophils Percent Auto 1.2 % (0-4.4); Hematocrit 32.6 % (42.0-52.0); Hemoglobin 10.5 g/dL (14.0-18.0); Immature Granulocyte Absolute 0.48 K/mm3 (0.00-0.031); Immature Granulocyte Percent A 2.3 % (0-0.5); Lymphocytes Absolute Auto 0.76 K/mm3 (0.9-3.2); Lymphocytes Percent Auto 3.7 % (18.3-44.2); Mean Corpuscular HGB Conc 32.2 g/dl (32-36); Mean Corpuscular Hemoglobin 30.7 pg (26-34); Mean Corpuscular Volume 95.3 fl (80-100); Mean Platelet Volume 9.8 fl (7.4-10.4); Monocytes Absolute Auto 0.8 K/mm3 (0.1-0.6); Neutrophils Absolute Auto 18.4 K/mm3 (1.3-6.7); Neutrophils Percent Auto 88.6 % (45.5-73.1); Platelet Count Result 266 k/mm3 (150-375); Red Blood Count 3.42 M/mm3 (4.6-6.20); White Blood Count 20.8 K/mm3 (4.5-10.0)
[2021-10-24 12:59] LABS: Alanine Aminotransferase 26 U/L (4-50); Albumin Level 2.9 g/dL (3.5-5.1); Alkaline Phosphatase 97 U/L (38-126); Anion Gap 4 mmol/L (8-16); Aspartate Amino Transferase 28 U/L (17-59); Bilirubin,Total 0.6 mg/dL (0.2-1.3); Blood Urea Nitrogen 23 mg/dL (9-20); Calcium 8.4 mg/dL (8.4-10.2); Carbon Dioxide 24 mmol/L (22-30); Chloride 110 mmol/L (98-107); Estimated CRCL calculation 34 ml/min; Estimated Glomerular Filt Rate 44; Glucose 115 mg/dL (65-110); Magnesium 1.6 mg/dL (1.6-2.3); Potassium 3.4 mmol/L (3.4-5.0); Sodium 138 mmol/L (137-145)
[2021-10-24 20:00] VITALS: BP 139/80; PULSE 71; RESP 18; TEMP 36.2; O2SAT 97
[2021-10-24] MEDS: DONEPEZIL HCL 10 MG TABLET PO (20:16)
[2021-10-24] MEDS: TAMSULOSIN HCL 0.4 MG CAPSULE PO (20:17)
[2021-10-25] VITALS (7 sets, daily range): BP systolic 123–150; BP diastolic 59–83; PULSE 67–98; RESP 18–20; TEMP 35.8–36.3; O2SAT 59–98
[2021-10-25 06:08] LABS: Basophils Absolute Auto 0.1 K/mm3 (0.0-0.1); Basophils Percent Auto 0.3 % (0.2-1.2); Eosinophils Absolute Auto 0.3 K/mm3 (0-0.3); Eosinophils Percent Auto 1.6 % (0-4.4); Hematocrit 26.1 % (42.0-52.0); Hemoglobin 8.6 g/dL (14.0-18.0); Immature Granulocyte Absolute 0.27 K/mm3 (0.00-0.031); Immature Granulocyte Percent A 1.6 % (0-0.5); Lymphocytes Absolute Auto 0.69 K/mm3 (0.9-3.2); Lymphocytes Percent Auto 4.2 % (18.3-44.2); Mean Corpuscular Hemoglobin 31.2 pg (26-34); Mean Corpuscular Volume 94.6 fl (80-100); Monocytes Absolute Auto 0.8 K/mm3 (0.1-0.6); Monocytes Percent Auto 4.9 % (2.6-8.5); Neutrophils Absolute Auto 14.4 K/mm3 (1.3-6.7); Neutrophils Percent Auto 87.4 % (45.5-73.1); Platelet Count Result 237 k/mm3 (150-375); Red Blood Count 2.76 M/mm3 (4.6-6.20); White Blood Count 16.4 K/mm3 (4.5-10.0)
[2021-10-25 06:24] LABS: Alanine Aminotransferase 22 U/L (4-50); Albumin Level 2.4 g/dL (3.5-5.1); Alkaline Phosphatase 74 U/L (38-126); Anion Gap 3 mmol/L (8-16); Aspartate Amino Transferase 24 U/L (17-59); Bilirubin,Total 0.6 mg/dL (0.2-1.3); Blood Urea Nitrogen 21 mg/dL (9-20); Calcium 8.2 mg/dL (8.4-10.2); Carbon Dioxide 24 mmol/L (22-30); Chloride 110 mmol/L (98-107); Estimated CRCL calculation 39 ml/min; Estimated Glomerular Filt Rate 52; Glucose 103 mg/dL (65-110); Magnesium 1.7 mg/dL (1.6-2.3); Potassium 3.1 mmol/L (3.4-5.0); Sodium 137 mmol/L (137-145)
[2021-10-25] MEDS: MAGNESIUM SULF 2 GM/WATER 50ML 2 GM/50 ML BAG IVPB (09:42)
[2021-10-25] MEDS: POTASSIUM CHLORIDE 20 MEQ TABLET 40 MEQ PO (09:43)
[2021-10-25] MEDS: levETIRAcetam 500 MG TABLET PO ×2 (09:46→20:28)
[2021-10-25] MEDS: FAMOTIDINE 20 MG/2 ML VIAL IV PUSH ×2 (09:46→20:28)
[2021-10-25] MEDS: MEMANTINE 10 MG TABLET PO ×2 (09:46→20:28)
[2021-10-25] MEDS: DOCUSATE SODIUM 100 MG CAPSULE PO ×2 (09:46→20:28)
[2021-10-25] MEDS: FINASTERIDE 5 MG TABLET PO (09:46)
[2021-10-25] MEDS: SERTRALINE HCL 50 MG TABLET PO (09:47)
--- NOTE | 2021-10-25 11:04 | P.PNIM_ITS ---
Progress Note: A&P Assessment and Plan (1) Acute kidney injury: Code(s): N17.9 - Acute kidney failure, unspecified Status: Acute Assessment and Plan: creatinine on admission was 4.5, baseline creatinine of 1 earlier this month. Suspect obstructive etiology secondary to bilateral ureteral stones and urinary retention Creatinine had continued to improve down to 1.3/1.4 now (2) Hydronephrosis with urinary obstruction due to ureteral calculus: Code(s): N13.2 - Hydronephrosis with renal and ureteral calculous obstruction Status: Acute Assessment and Plan: CT on presentation showed bilateral hydroureteronephrosis with multiple distal bilateral ureteral stones * Urology consulted in managing * Patient is now s/p cystoscopy with bilateral ureteral stent placement on 10/17 Tolerated the procedure well * White removed 10/20, voiding without difficulty * patient will need outpatient follow-up for bilateral stent exchange and stone extraction in 1-2 weeks * Repeat CT chest showed bilateral hydroureteronephrosis with distended urinary bladder. Status post White placement back again 10/24/2021 * Resolution of hydronephrosis in this morning's renal ultrasound. * Will need to continue White catheter discharge and follow-up as outpatient basis with Urology. (3) Urinary tract infection: Qualifiers: Urinary tract infection type: site unspecified Hematuria presence: without hematuria Qualified Code(s): N39.0 - Urinary tract infection, site not specified Code(s): N39.0 - Urinary tract infection, site not specified Status: Acute Assessment and Plan: Urinalysis grossly abnormal. Operative note states the bladder is clearly infected. * Urine culture with growth of >100k Enterobacter cloacae, resistant to ceftriaxone * Ceftriaxone discontinued 10/19 * 10/19 Transitioned to cefepime. Increase to 2 g q24h (renal dosing) given improved CrCl * With increased confusion I wonder if this is effective cefepime particularly with his history of seizures, will switch him to Levaquin which can transition to oral as well * Blood culture repeat has been no growth to date (4) Bacteremia: Code(s): R78.81 - Bacteremia Status: Acute Assessment and Plan: Blood cultures with growth of Enterobacter cloacae in 2 of 2 bottles. Source of infection is UTI * Continue IV cefepime as above * Mild increase in WBC to 15.9 3/25 but remains afebrile with stable vitals. Added vancomycin and repeat blood cultures ordered due to increased in leukocytosis * Switch to Levaquin which can transition to oral for 2 weeks total course of antibiotics * repeat blood culture has been no growth to date done on 10/23/2021 * Will also stop his vancomycin (5) Seizures: Onset Date: 1999 Code(s): R56.9 - Unspecified convulsions Status: Acute Assessment and Plan: No recent seizure activity * Continue Keppra (6) Generalized weakness: Code(s): R53.1 - Weakness Status: Acute Assessment and Plan: Patient presented with increased weakness. Suspect this is secondary to underlying infection and acute kidney injury, as well as overall physical deconditioning * Continue PT/OT as patient is having a current overall decline in general condition with rising WBC count. Today required assist to get back to bed and also was only able to do in bed exercises for strengthening. * Continue fall precautions * Spoke with patient's [id number] who believes the patient will need higher level of care
--- NOTE | 2021-10-25 11:04 | PM.IMPN ---
Progress Note: A&P Assessment and Plan (1) Acute kidney injury: Code(s): N17.9 - Acute kidney failure, unspecified Status: Acute Assessment and Plan: creatinine on admission was 4.5, baseline creatinine of 1 earlier this month. Suspect obstructive etiology secondary to bilateral ureteral stones and urinary retention Creatinine had continued to improve down to 1.3/1.4 now (2) Hydronephrosis with urinary obstruction due to ureteral calculus: Code(s): N13.2 - Hydronephrosis with renal and ureteral calculous obstruction Status: Acute Assessment and Plan: CT on presentation showed bilateral hydroureteronephrosis with multiple distal bilateral ureteral stones Urology consulted in managing Patient is now s/p cystoscopy with bilateral ureteral stent placement on 10/17 Tolerated the procedure well White removed 10/20, voiding without difficulty patient will need outpatient follow-up for bilateral stent exchange and stone extraction in 1-[address] chest showed bilateral hydroureteronephrosis with distended urinary bladder. Status post White placement back again 10/24/2021 Resolution of hydronephrosis in this morning's renal ultrasound. Will need to continue White catheter discharge and follow-up as outpatient basis with Urology. (3) Urinary tract infection: Qualifiers: Urinary tract infection type: site unspecified Hematuria presence: without hematuria Qualified Code(s): N39.0 - Urinary tract infection, site not specified Code(s): N39.0 - Urinary tract infection, site not specified Status: Acute Assessment and Plan: Urinalysis grossly abnormal. Operative note states the bladder is clearly infected. Urine culture with growth of >100k Enterobacter cloacae, resistant to ceftriaxone Ceftriaxone discontinued 10/19 10/19 Transitioned to cefepime. Increase to 2 g q24h (renal dosing) given improved CrCl With increased confusion I wonder if this is effective cefepime particularly with his history of seizures, will switch him to Levaquin which can transition to oral as well Blood culture repeat has been no growth to date (4) Bacteremia: Code(s): R78.81 - Bacteremia Status: Acute Assessment and Plan: Blood cultures with growth of Enterobacter cloacae in 2 of 2 bottles. Source of infection is UTI Continue IV cefepime as above Mild increase in WBC to 15.9 10/23 but remains afebrile with stable vitals. Added vancomycin and repeat blood cultures ordered due to increased in leukocytosis Switch to Levaquin which can transition to oral for 2 weeks total course of antibiotics repeat blood culture has been no growth to date done on 10/23/2021 Will also stop his vancomycin (5) Seizures: Onset Date: 1999 Code(s): R56.9 - Unspecified convulsions Status: Acute Assessment and Plan: No recent seizure activity Continue Keppra (6) Generalized weakness: Code(s): R53.1 - Weakness Status: Acute Assessment and Plan: Patient presented with increased weakness. Suspect this is secondary to underlying infection and acute kidney injury, as well as overall physical deconditioning Continue PT/OT as patient is having a current overall decline in general condition with rising WBC count. Today required assist to get back to bed and also was only able to do in bed exercises for strengthening. Continue fall precautions Spoke with patient's [id number] who believes the patient will need higher level of care on discharge, does not feel he is suitable to return home. Care coordination following and planning for SNF placement (7) Hypertension: Qualifiers: Hypertension type: unspecified Qualified Code(s): I10 - Essential (primary) hypertension Code(s): I10 - Essential (primary) hypertension Status: Acute Assessment and Plan: lisinopril on hold due to TRUONG (8) Hypokalemia:
[2021-10-25 13:00] LABS: Glucose Point of Care 110 mg/dl (65-105)
[2021-10-25] MEDS: DONEPEZIL HCL 10 MG TABLET PO (20:28)
[2021-10-25] MEDS: TAMSULOSIN HCL 0.4 MG CAPSULE PO (20:28)
[2021-10-26 02:52] VITALS: BP 133/89; PULSE 63; RESP 20; TEMP 36; O2SAT 99
[2021-10-26 06:00] VITALS: BP 132/80; PULSE 68; RESP 20; TEMP 36.1; O2SAT 98
[2021-10-26 06:13] LABS: Basophils Percent Auto 0.2 % (0.2-1.2); Eosinophils Absolute Auto 0.2 K/mm3 (0-0.3); Eosinophils Percent Auto 1.6 % (0-4.4); Hematocrit 27.9 % (42.0-52.0); Hemoglobin 8.9 g/dL (14.0-18.0); Immature Granulocyte Percent A 1.4 % (0-0.5); Lymphocytes Absolute Auto 0.76 K/mm3 (0.9-3.2); Lymphocytes Percent Auto 5.3 % (18.3-44.2); Mean Corpuscular HGB Conc 31.9 g/dl (32-36); Mean Corpuscular Hemoglobin 30.8 pg (26-34); Mean Corpuscular Volume 96.5 fl (80-100); Mean Platelet Volume 9.8 fl (7.4-10.4); Monocytes Percent Auto 6.9 % (2.6-8.5); Neutrophils Absolute Auto 12.2 K/mm3 (1.3-6.7); Neutrophils Percent Auto 84.6 % (45.5-73.1); Platelet Count Result 262 k/mm3 (150-375); Red Blood Count 2.89 M/mm3 (4.6-6.20); Red Cell Distribution Width 13.7 % (11.5-14.5); White Blood Count 14.4 K/mm3 (4.5-10.0)
[2021-10-26 06:23] LABS: Alanine Aminotransferase 27 U/L (4-50); Albumin Level 2.5 g/dL (3.5-5.1); Alkaline Phosphatase 80 U/L (38-126); Anion Gap 2 mmol/L (8-16); Aspartate Amino Transferase 36 U/L (17-59); Bilirubin,Total 0.6 mg/dL (0.2-1.3); Blood Urea Nitrogen 18 mg/dL (9-20); Calcium 8.3 mg/dL (8.4-10.2); Carbon Dioxide 28 mmol/L (22-30); Chloride 108 mmol/L (98-107); Estimated CRCL calculation 46 ml/min; Estimated Glomerular Filt Rate > 60; Glucose 102 mg/dL (65-110); Potassium 3.3 mmol/L (3.4-5.0); Sodium 138 mmol/L (137-145)
--- NOTE | 2021-10-26 06:30 | WPDUROPN2 ---
Progress Note: A&P Assessment and Plan (1) Hydronephrosis with urinary obstruction due to ureteral calculus: Code(s): N13.2 - Hydronephrosis with renal and ureteral calculous obstruction Status: Acute (2) Urinary tract infection: Qualifiers: Urinary tract infection type: site unspecified Hematuria presence: without hematuria Qualified Code(s): N39.0 - Urinary tract infection, site not specified Code(s): N39.0 - Urinary tract infection, site not specified Status: Acute (3) Acute kidney injury: Code(s): N17.9 - Acute kidney failure, unspecified Status: Acute Assessment and Plan: Failed voiding trial - catheter replaced. Will need to leave indwelling catheter until we can do outpatient urodynamics. Eventually will need bilateral ureteroscosopy with stone extraction, as well. Subjective Subjective Date/Time Seen: 10/26/21 06:30 Failed voiding trial noted. Review of Systems Review of Systems: ROS unobtainable: Yes unobtainable due to mental status Exam Const: General: no acute distress Resp: Effort & Inspection: normal respiratory effort GI: Inspection: non-distended GI Palp: No abdominal tenderness and No Guarding due to palpation present (GI) Auscultation: normal bowel sounds Urinary Catheter: Urinary Catheter: patent and draining and urine clear Objective Data Vital Signs Vital Signs: Vital Signs - 24 hr 10/25/21 09:47 10/25/21 14:01 10/25/21 20:00 Temperature 96.4 F L Pulse Rate 98 70 Respiratory Rate 18 20 18 Blood Pressure 150/78 H Pulse Oximetry 96 59 L 95 10/25/21 22:00 10/25/21 22:38 10/26/21 02:52 Temperature 97.0 F L 96.8 F L Pulse Rate 70 63 Respiratory Rate 18 20 Blood Pressure 145/78 H 133/89 Pulse Oximetry 96 95 99 Intake/Output Intake/Output: Intake & Output 10/23/21 10/24/21 10/25/21 10/26/21 23:59 23:59 23:59 23:59 Intake Total 970 1265 1710 Output Total 3700 Balance 970 1265 -1989 Meds/Results Medications: Active Medications Generic Name Dose Route Start Last Admin Trade Name Freq PRN Reason Stop Dose Admin Acetaminophen 650 mg 10/22/21 11:33 Acetaminophen 325 Mg Tablet PO Q6H PRN Pain 1-6 Hydrocodone Bitart/Acetaminophen 1 tab 10/17/21 23:53 10/23/21 10:28 Hydrocodone/Acetaminophen (*Crx) 5-325 Mg Tablet PO 1 tab Q6H PRN Administration pain 7-10 Docusate Sodium 100 mg 10/20/21 21:00 10/25/21 20:28 Docusate Sodium 100 Mg Capsule PO 100 mg Q12HR LINDA Administration Donepezil HCl 10 mg 10/18/21 00:00 10/25/21 20:28 Donepezil Hcl 10 Mg Tablet PO 10 mg HS LINDA Administration Famotidine 20 mg 10/22/21 21:00 10/25/21 20:28 Famotidine 20 Mg/2 Ml Vial IV PUSH 20 mg Q12HR LINDA Administration Finasteride 5 mg 10/19/21 09:00 10/25/21 09:46 Finasteride 5 Mg Tablet PO 5 mg QAM LINDA Administration Levofloxacin/Dextrose 750 mg in 150 mls @ 100 mls/hr 10/25/21 12:00 10/25/21 13:30 Levaquin 750 Mg/D5w 150 Ml IVPB Infused Q48H LINDA Infusion Levetiracetam 500 mg 10/18/21 00:00 10/25/21 20:28 Levetiracetam 500 Mg Tablet PO 500 mg Q12HR LINDA Administration Memantine 10 mg 10/18/21 09:00 10/25/21 20:28 Memantine 10 Mg Tablet PO 10 mg Q12HR LINDA Administration Polyethylene Glycol 17 gm 10/20/21 13:41 Polyethylene Glycol 3350 17 Gm Powd.Pack PO QAM PRN Constipation Sertraline HCl 50 mg 10/21/21 09:00 10/25/21 09:47 Sertraline Hcl 50 Mg Tablet PO 50 mg QAM LINDA Administration Tamsulosin HCl 0.4 mg 10/19/21 21:00 10/25/21 20:28 Tamsulosin Hcl 0.4 Mg Capsule PO 0.4 mg HS LINDA Administration Radiology Results: ITS Impressions Head CT 10/17/21 11:48 IMPRESSION: 1. No acute intracranial abnormality. 2: Chronic age-related findings. Abdomen/Pelvis CT 10/17/21 11:55 IMPRESSION: 1. Bilateral hydroureteronephrosis, right greater than left with mu
[2021-10-26 08:24] VITALS: RESP 20; O2SAT 97
[2021-10-26] MEDS: MEMANTINE 10 MG TABLET PO ×2 (08:32→20:08)
[2021-10-26] MEDS: FAMOTIDINE 20 MG/2 ML VIAL IV PUSH ×2 (08:32→20:08)
[2021-10-26] MEDS: metroNIDAZOLE 500 MG/ISO 100ML 500 MG/100 ML BAG 100 MG IVPB ×3 (08:32→20:08)
[2021-10-26] MEDS: POTASSIUM CHLORIDE 20 MEQ TABLET 40 MEQ PO (08:32)
[2021-10-26] MEDS: DOCUSATE SODIUM 100 MG CAPSULE PO ×2 (08:33→20:08)
[2021-10-26] MEDS: levETIRAcetam 500 MG TABLET PO ×2 (08:33→20:08)
[2021-10-26] MEDS: FINASTERIDE 5 MG TABLET PO (08:33)
[2021-10-26] MEDS: SERTRALINE HCL 50 MG TABLET PO (08:33)
--- NOTE | 2021-10-26 14:04 | P.PNIM_ITS ---
Progress Note: A&P Assessment and Plan (1) Acute kidney injury: Code(s): N17.9 - Acute kidney failure, unspecified Status: Acute Assessment and Plan: creatinine on admission was 4.5, baseline creatinine of 1 earlier this month. Suspect obstructive etiology secondary to bilateral ureteral stones and urinary retention Creatinine had continued to improve (2) Hydronephrosis with urinary obstruction due to ureteral calculus: Code(s): N13.2 - Hydronephrosis with renal and ureteral calculous obstruction Status: Acute Assessment and Plan: CT on presentation showed bilateral hydroureteronephrosis with multiple distal bilateral ureteral stones * Urology consulted in managing * Patient is now s/p cystoscopy with bilateral ureteral stent placement on 10/17 Tolerated the procedure well * White removed 10/20, voiding without difficulty * patient will need outpatient follow-up for bilateral stent exchange and stone extraction in 1-2 weeks * Repeat CT chest showed bilateral hydroureteronephrosis with distended urinary bladder. Status post White placement back again 10/24/2021 * Resolution of hydronephrosis in this morning's renal ultrasound. * Will need to continue White catheter discharge and follow-up as outpatient basis with Urology. (3) Urinary tract infection: Qualifiers: Urinary tract infection type: site unspecified Hematuria presence: without hematuria Qualified Code(s): N39.0 - Urinary tract infection, site not specified Code(s): N39.0 - Urinary tract infection, site not specified Status: Acute Assessment and Plan: Urinalysis grossly abnormal. Operative note states the bladder is clearly infected. * Urine culture with growth of >100k Enterobacter cloacae, resistant to ceftriaxone * Ceftriaxone discontinued 10/19 * 10/19 Transitioned to cefepime. Increase to 2 g q24h (renal dosing) given improved CrCl * With increased confusion I wonder if this is effective cefepime particularly with his history of seizures, will switch him to Levaquin which can transition to oral as well * Blood culture repeat has been no growth to date (4) Bacteremia: Code(s): R78.81 - Bacteremia Status: Acute Assessment and Plan: Blood cultures with growth of Enterobacter cloacae in 2 of 2 bottles. Source of infection is UTI * Continue IV cefepime as above * Mild increase in WBC to 15.9 10/23 but remains afebrile with stable vitals. Added vancomycin and repeat blood cultures ordered due to increased in leukocytosis * Switch to Levaquin which can transition to oral for 2 weeks total course of antibiotics * repeat blood culture has been no growth to date done on 10/23/2021 * Will also stop his vancomycin (5) Seizures: Onset Date: 1999 Code(s): R56.9 - Unspecified convulsions Status: Acute Assessment and Plan: No recent seizure activity * Continue Keppra (6) Generalized weakness: Code(s): R53.1 - Weakness Status: Acute Assessment and Plan: Patient presented with increased weakness. Suspect this is secondary to underlying infection and acute kidney injury, as well as overall physical deconditioning * Continue PT/OT as patient is having a current overall decline in general condition with rising WBC count. Today required assist to get back to bed and also was only able to do in bed exercises for strengthening. * Continue fall precautions * Spoke with patient's [id number] who believes the patient will need higher level of care on discharge, does
[2021-10-26 14:56] VITALS: BP 150/68; PULSE 59; RESP 16; TEMP 36.3; O2SAT 100
[2021-10-26] MEDS: TAMSULOSIN HCL 0.4 MG CAPSULE PO (20:08)
[2021-10-26] MEDS: DONEPEZIL HCL 10 MG TABLET PO (20:08)
[2021-10-26 22:00] VITALS: BP 139/66; PULSE 61; RESP 20; TEMP 36.4; O2SAT 98
[2021-10-27 02:00] VITALS: BP 134/63; PULSE 64; RESP 20; TEMP 36.6; O2SAT 98
[2021-10-27] MEDS: metroNIDAZOLE 500 MG/ISO 100ML 500 MG/100 ML BAG 100 MG IVPB ×4 (02:02→20:05)
[2021-10-27 06:00] VITALS: BP 138/71; PULSE 66; RESP 20; TEMP 36.4; O2SAT 99
[2021-10-27 06:02] LABS: Basophils Absolute Auto 0.1 K/mm3 (0.0-0.1); Basophils Percent Auto 0.4 % (0.2-1.2); Eosinophils Absolute Auto 0.3 K/mm3 (0-0.3); Eosinophils Percent Auto 2.4 % (0-4.4); Hematocrit 27.9 % (42.0-52.0); Immature Granulocyte Absolute 0.18 K/mm3 (0.00-0.031); Immature Granulocyte Percent A 1.4 % (0-0.5); Lymphocytes Absolute Auto 0.88 K/mm3 (0.9-3.2); Mean Corpuscular HGB Conc 32.3 g/dl (32-36); Mean Corpuscular Hemoglobin 30.5 pg (26-34); Mean Corpuscular Volume 94.6 fl (80-100); Monocytes Percent Auto 7.6 % (2.6-8.5); Neutrophils Absolute Auto 10.3 K/mm3 (1.3-6.7); Neutrophils Percent Auto 81.2 % (45.5-73.1); Platelet Count Result 255 k/mm3 (150-375); Red Blood Count 2.95 M/mm3 (4.6-6.20); Red Cell Distribution Width 13.7 % (11.5-14.5); White Blood Count 12.6 K/mm3 (4.5-10.0)
[2021-10-27 06:15] LABS: Alanine Aminotransferase 27 U/L (4-50); Albumin Level 2.4 g/dL (3.5-5.1); Alkaline Phosphatase 76 U/L (38-126); Anion Gap 2 mmol/L (8-16); Aspartate Amino Transferase 33 U/L (17-59); Bilirubin,Total 0.4 mg/dL (0.2-1.3); Blood Urea Nitrogen 18 mg/dL (9-20); Calcium 8.3 mg/dL (8.4-10.2); Carbon Dioxide 27 mmol/L (22-30); Chloride 109 mmol/L (98-107); Estimated CRCL calculation 50 ml/min; Estimated Glomerular Filt Rate > 60; Glucose 108 mg/dL (65-110); Potassium 3.6 mmol/L (3.4-5.0); Sodium 138 mmol/L (137-145)
[2021-10-27] MEDS: DOCUSATE SODIUM 100 MG CAPSULE PO ×2 (08:42→20:06)
[2021-10-27] MEDS: levETIRAcetam 500 MG TABLET PO ×2 (08:42→20:06)
[2021-10-27] MEDS: SERTRALINE HCL 50 MG TABLET PO (08:42)
[2021-10-27] MEDS: FAMOTIDINE 20 MG/2 ML VIAL IV PUSH ×2 (08:42→20:06)
[2021-10-27] MEDS: MEMANTINE 10 MG TABLET PO ×2 (08:43→20:06)
[2021-10-27] MEDS: FINASTERIDE 5 MG TABLET PO (08:43)
[2021-10-27] MEDS: HYDROcodone/acetaminophen (*CRX) 5-325 MG TABLET 1 TAB PO (08:50)
--- NOTE | 2021-10-27 13:55 | PM.IMPN ---
Progress Note: A&P Assessment and Plan (1) Acute kidney injury: Code(s): N17.9 - Acute kidney failure, unspecified Status: Acute Assessment and Plan: creatinine on admission was 4.5, baseline creatinine of 1 earlier this month. Suspect obstructive etiology secondary to bilateral ureteral stones and urinary retention Creatinine had continued to improve (2) Hydronephrosis with urinary obstruction due to ureteral calculus: Code(s): N13.2 - Hydronephrosis with renal and ureteral calculous obstruction Status: Acute Assessment and Plan: CT on presentation showed bilateral hydroureteronephrosis with multiple distal bilateral ureteral stones Urology consulted in managing Patient is now s/p cystoscopy with bilateral ureteral stent placement on 10/17 Tolerated the procedure well White removed 10/20, voiding without difficulty patient will need outpatient follow-up for bilateral stent exchange and stone extraction in 1-[address] chest showed bilateral hydroureteronephrosis with distended urinary bladder. Status post White placement back again 10/24/2021 Resolution of hydronephrosis in follow-up renal ultrasound. Will need to continue White catheter discharge and follow-up as outpatient basis with Urology. (3) Urinary tract infection: Qualifiers: Urinary tract infection type: site unspecified Hematuria presence: without hematuria Qualified Code(s): N39.0 - Urinary tract infection, site not specified Code(s): N39.0 - Urinary tract infection, site not specified Status: Acute Assessment and Plan: Urinalysis grossly abnormal. Operative note states the bladder is clearly infected. Urine culture with growth of >100k Enterobacter cloacae, resistant to ceftriaxone Ceftriaxone discontinued 10/19 10/19 Transitioned to cefepime. Increase to 2 g q24h (renal dosing) given improved CrCl With increased confusion I wonder if this is effective cefepime particularly with his history of seizures, will switch him to Levaquin which can transition to oral as well Blood culture repeat has been no growth to date Will plan to continue on Levaquin and Flagyl to cover for his urinary tract infection along with his diverticulitis. (4) Bacteremia: Code(s): R78.81 - Bacteremia Status: Acute Assessment and Plan: Blood cultures with growth of Enterobacter cloacae in 2 of 2 bottles. Source of infection is UTI Continue IV cefepime as above Mild increase in WBC to 15.9 3/25 but remains afebrile with stable vitals. Added vancomycin and repeat blood cultures ordered due to increased in leukocytosis Switch to Levaquin which can transition to oral for 2 weeks total course of antibiotics repeat blood culture has been no growth to date done on 10/23/2021 Will also stop his vancomycin Leukocytosis continues to improve down to 12,000 today (5) Seizures: Onset Date: 1999 Code(s): R56.9 - Unspecified convulsions Status: Acute Assessment and Plan: No recent seizure activity Continue Gwen (6) Generalized weakness: Code(s): R53.1 - Weakness Status: Acute Assessment and Plan: Patient presented with increased weakness. Suspect this is secondary to underlying infection and acute kidney injury, as well as overall physical deconditioning Continue PT/OT as patient is having a current overall decline in general condition with rising WBC count. Today required assist to get back to bed and also was only able to do in bed exercises for strengthening. Continue fall precautions Spoke with patient's [id number] who believes the patient will need higher level of care on discharge, does not feel he is suitable to return home. Care coordination following and planning for SNF placement (7) Hypertension: Qualifiers: Hypertension type: unspecified Qualified Code(s): I10 - Essential (primary) hypertension Cod
[2021-10-27 14:04] VITALS: BP 116/58; PULSE 69; RESP 16; TEMP 36.5; O2SAT 98
[2021-10-27] MEDS: TAMSULOSIN HCL 0.4 MG CAPSULE PO (20:06)
[2021-10-27] MEDS: DONEPEZIL HCL 10 MG TABLET PO (20:06)
[2021-10-27 20:57] VITALS: BP 126/60; PULSE 69; RESP 18; TEMP 36.4; O2SAT 97
[2021-10-28] MEDS: metroNIDAZOLE 500 MG/ISO 100ML 500 MG/100 ML BAG 100 MG IVPB ×4 (01:59→21:13)
[2021-10-28 05:03] VITALS: BP 116/56; PULSE 66; RESP 16; TEMP 37.1; O2SAT 95
[2021-10-28 06:52] LABS: Alanine Aminotransferase 21 U/L (4-50); Albumin Level 2.4 g/dL (3.5-5.1); Alkaline Phosphatase 79 U/L (38-126); Anion Gap 4 mmol/L (8-16); Aspartate Amino Transferase 22 U/L (17-59); Bilirubin,Total 0.4 mg/dL (0.2-1.3); Blood Urea Nitrogen 17 mg/dL (9-20); Calcium 8.2 mg/dL (8.4-10.2); Carbon Dioxide 26 mmol/L (22-30); Chloride 107 mmol/L (98-107); Estimated CRCL calculation 50 ml/min; Estimated Glomerular Filt Rate > 60; Glucose 102 mg/dL (65-110); Magnesium 1.7 mg/dL (1.6-2.3); Potassium 3.5 mmol/L (3.4-5.0); Sodium 137 mmol/L (137-145)
[2021-10-28 06:54] LABS: Basophils Absolute Auto 0.1 K/mm3 (0.0-0.1); Basophils Percent Auto 0.4 % (0.2-1.2); Eosinophils Absolute Auto 0.3 K/mm3 (0-0.3); Eosinophils Percent Auto 2.2 % (0-4.4); Hematocrit 27.2 % (42.0-52.0); Immature Granulocyte Absolute 0.13 K/mm3 (0.00-0.031); Immature Granulocyte Percent A 1.1 % (0-0.5); Lymphocytes Absolute Auto 0.87 K/mm3 (0.9-3.2); Lymphocytes Percent Auto 7.2 % (18.3-44.2); Mean Corpuscular HGB Conc 33.1 g/dl (32-36); Mean Corpuscular Hemoglobin 30.9 pg (26-34); Mean Corpuscular Volume 93.5 fl (80-100); Mean Platelet Volume 10.1 fl (7.4-10.4); Monocytes Absolute Auto 0.9 K/mm3 (0.1-0.6); Monocytes Percent Auto 7.6 % (2.6-8.5); Neutrophils Absolute Auto 9.8 K/mm3 (1.3-6.7); Neutrophils Percent Auto 81.5 % (45.5-73.1); Platelet Count Result 265 k/mm3 (150-375); Red Blood Count 2.91 M/mm3 (4.6-6.20); Red Cell Distribution Width 13.5 % (11.5-14.5)
[2021-10-28] MEDS: levETIRAcetam 500 MG TABLET PO ×2 (08:40→21:12)
[2021-10-28] MEDS: FAMOTIDINE 20 MG/2 ML VIAL IV PUSH ×2 (08:40→21:13)
[2021-10-28] MEDS: SERTRALINE HCL 50 MG TABLET PO (08:40)
[2021-10-28] MEDS: DOCUSATE SODIUM 100 MG CAPSULE PO ×2 (08:40→21:12)
[2021-10-28] MEDS: MEMANTINE 10 MG TABLET PO ×2 (08:40→21:12)
[2021-10-28] MEDS: FINASTERIDE 5 MG TABLET PO (08:40)
[2021-10-28] MEDS: HYDROcodone/acetaminophen (*CRX) 5-325 MG TABLET 1 TAB PO (12:03)
[2021-10-28 14:00] VITALS: BP 135/63; PULSE 70; RESP 16; TEMP 36.6; O2SAT 97
--- NOTE | 2021-10-28 15:08 | WPDUROPN2 ---
Progress Note: A&P Assessment and Plan (1) Acute urinary retention: Code(s): R33.8 - Other retention of urine Status: Acute Assessment and Plan: Patient's catheter is comfortable and draining well. OK to discharge home with it to follow up in the office for Urodynamics. He may be having bladder spasms, however we cannot give any anti spasmotics as it may prolong retention. Subjective Subjective Date/Time Seen: 10/28/21 15:08 Failed voiding trial noted. Patient was complaining of pain and the nurse called us to report this. He was asleep and comfortable when I saw him this afternoon and had no complaints about his catheter. It was draining to gravity and urine is clear, yellow. Review of Systems Cardiovascular: Cardiovascular: Denies chest pain Respiratory: Respiratory: Reports no additional respiratory complaints Gastrointestinal: Gastrointestinal: Denies abdominal pain, Denies nausea and Denies vomiting Genitourinary: Genitourinary: Denies hematuria, Denies dysuria, Denies flank pain and Denies testicular pain Exam Resp: Effort & Inspection: normal respiratory effort Cardio: Rate: regular rate GI: GI Palp: Yes Soft to palpation and No Tenderness to palpation present (GI) : General: Yes no CVA tenderness Urinary Catheter: Urinary Catheter: patent and draining and urine clear Extrem: General: no edema Objective Data Vital Signs Vital Signs: Vital Signs - 24 hr 10/27/21 20:57 10/28/21 05:03 10/28/21 14:00 Temperature 97.6 F 98.7 F 97.8 F Pulse Rate 69 66 70 Respiratory Rate 18 16 16 Blood Pressure 126/60 116/56 L 135/63 Pulse Oximetry 97 95 97 Intake/Output Intake/Output: Intake & Output 10/25/21 10/26/21 10/27/21 10/28/21 23:59 23:59 23:59 23:59 Intake Total 1710 1660 1270 450 Output Total 3700 1750 1475 800 [facility] -1990 -90 -205 -350 Meds/Results Medications: Active Medications Generic Name Dose Route Start Last Admin Trade Name Freq PRN Reason Stop Dose Admin Acetaminophen 650 mg 10/22/21 11:33 Acetaminophen 325 Mg Tablet PO Q6H PRN Pain 1-6 Hydrocodone Bitart/Acetaminophen 1 tab 10/17/21 23:53 10/28/21 12:03 Hydrocodone/Acetaminophen (*Crx) 5-325 Mg Tablet PO 1 tab Q6H PRN Administration pain 7-10 Docusate Sodium 100 mg 10/20/21 21:00 10/28/21 08:40 Docusate Sodium 100 Mg Capsule PO 100 mg Q12HR LINDA Administration Donepezil HCl 10 mg 10/18/21 00:00 10/27/21 20:06 Donepezil Hcl 10 Mg Tablet PO 10 mg HS LINDA Administration Famotidine 20 mg 10/22/21 21:00 10/28/21 08:40 Famotidine 20 Mg/2 Ml Vial IV PUSH 20 mg Q12HR LINDA Administration Finasteride 5 mg 10/19/21 09:00 10/28/21 08:40 Finasteride 5 Mg Tablet PO 5 mg QAM LINDA Administration Levofloxacin/Dextrose 750 mg in 150 mls @ 100 mls/hr 10/25/21 12:00 10/27/21 13:02 Levaquin 750 Mg/D5w 150 Ml IVPB Infused Q48H LINDA Infusion Metronidazole 500 mg in 100 mls @ 100 mls/hr 10/26/21 08:00 10/28/21 09:40 Flagyl 500 Mg/Iso Soln 100 Ml IVPB Infused Q6H LINDA Infusion Levetiracetam 500 mg 10/18/21 00:00 10/28/21 08:40 Levetiracetam 500 Mg Tablet PO 500 mg Q12HR LINDA Administration Memantine 10 mg 10/18/21 09:00 10/28/21 08:40 Memantine 10 Mg Tablet PO 10 mg Q12HR LNIDA Administration Polyethylene Glycol 17 gm 10/20/21 13:41 Polyethylene Glycol 3350 17 Gm Powd.Pack PO QAM PRN Constipation Sertraline HCl 50 mg 10/21/21 09:00 10/28/21 08:40 Sertraline Hcl 50 Mg Tablet PO 50 mg QAM LINDA Administration Tamsulosin HCl 0.4 mg 10/19/21 21:00 10/27/21 20:06 Tamsulosin Hcl 0.4 Mg Capsule PO 0.4 mg HS LINDA Administration Radiology Results: ITS Impressions Head CT 10/17/21 11:48 IMPRESSION: 1. No acute intracranial abnormality. 2: Chronic age-related findings. Abdomen/Pelvis CT 10/17/21 11:55 IMPRESSION: 1. Bilateral hydroureteronephrosis, right greater
--- NOTE | 2021-10-28 16:37 | PM.IMPN ---
Progress Note: A&P Assessment and Plan (1) Acute kidney injury: Code(s): N17.9 - Acute kidney failure, unspecified Status: Acute Assessment and Plan: creatinine on admission was 4.5, baseline creatinine of 1 earlier this month. Suspect obstructive etiology secondary to bilateral ureteral stones and urinary retention Creatinine had continued to improve (2) Hydronephrosis with urinary obstruction due to ureteral calculus: Code(s): N13.2 - Hydronephrosis with renal and ureteral calculous obstruction Status: Acute Assessment and Plan: CT on presentation showed bilateral hydroureteronephrosis with multiple distal bilateral ureteral stones Urology consulted in managing Patient is now s/p cystoscopy with bilateral ureteral stent placement on 10/17 Tolerated the procedure well White removed 10/20, voiding without difficulty patient will need outpatient follow-up for bilateral stent exchange and stone extraction in 1-[address] chest showed bilateral hydroureteronephrosis with distended urinary bladder. Status post White placement back again 10/24/2021 Resolution of hydronephrosis in follow-up renal ultrasound. Will need to continue White catheter discharge and follow-up as outpatient basis with Urology. (3) Urinary tract infection: Qualifiers: Hematuria presence: without hematuria Urinary tract infection type: site unspecified Qualified Code(s): N39.0 - Urinary tract infection, site not specified Code(s): N39.0 - Urinary tract infection, site not specified Status: Acute Assessment and Plan: Urinalysis grossly abnormal. Operative note states the bladder is clearly infected. Urine culture with growth of >100k Enterobacter cloacae, resistant to ceftriaxone Ceftriaxone discontinued 10/19 10/19 Transitioned to cefepime. Increase to 2 g q24h (renal dosing) given improved CrCl With increased confusion I wonder if this is effective cefepime particularly with his history of seizures, will switch him to Levaquin which can transition to oral as well Blood culture repeat has been no growth to date Will plan to continue on Levaquin and Flagyl to cover for his urinary tract infection along with his diverticulitis. (4) Bacteremia: Code(s): R78.81 - Bacteremia Status: Acute Assessment and Plan: Blood cultures with growth of Enterobacter cloacae in 2 of 2 bottles. Source of infection is UTI Continue IV cefepime as above Mild increase in WBC to 15.9 3/25 but remains afebrile with stable vitals. Added vancomycin and repeat blood cultures ordered due to increased in leukocytosis Switch to Levaquin which can transition to oral for 2 weeks total course of antibiotics repeat blood culture has been no growth to date done on 10/23/2021 Will also stop his vancomycin Leukocytosis continues to improve down to 12,000 today (5) Seizures: Onset Date: 1999 Code(s): R56.9 - Unspecified convulsions Status: Acute Assessment and Plan: No recent seizure activity Continue Gwen (6) Generalized weakness: Code(s): R53.1 - Weakness Status: Acute Assessment and Plan: Patient presented with increased weakness. Suspect this is secondary to underlying infection and acute kidney injury, as well as overall physical deconditioning Continue PT/OT as patient is having a current overall decline in general condition with rising WBC count. Today required assist to get back to bed and also was only able to do in bed exercises for strengthening. Continue fall precautions Spoke with patient's [id number] who believes the patient will need higher level of care on discharge, does not feel he is suitable to return home. Care coordination following and planning for SNF placement (7) Hypertension: Qualifiers: Hypertension type: unspecified Qualified Code(s): I10 - Essential (primary) hypertension Cod
[2021-10-28 21:06] VITALS: BP 107/71; PULSE 65; RESP 16; TEMP 36.4; O2SAT 96
[2021-10-28] MEDS: DONEPEZIL HCL 10 MG TABLET PO (21:12)
[2021-10-28] MEDS: TAMSULOSIN HCL 0.4 MG CAPSULE PO (21:13)
[2021-10-29] MEDS: metroNIDAZOLE 500 MG/ISO 100ML 500 MG/100 ML BAG 100 MG IVPB ×3 (02:09→14:26)
[2021-10-29 06:00] VITALS: BP 127/68; PULSE 68; RESP 16; TEMP 36.4; O2SAT 97
--- NOTE | 2021-10-29 07:10 | WPDUROPN2 ---
Progress Note: A&P Assessment and Plan (1) Hydronephrosis with urinary obstruction due to ureteral calculus: Code(s): N13.2 - Hydronephrosis with renal and ureteral calculous obstruction Status: Acute (2) Urinary tract infection: Qualifiers: Urinary tract infection type: site unspecified Hematuria presence: without hematuria Qualified Code(s): N39.0 - Urinary tract infection, site not specified Code(s): N39.0 - Urinary tract infection, site not specified Status: Acute Assessment and Plan: Bladder spasm yesterday - caused transient catheter discomfort and scant hematuria. Pt. now comfortable and urine clear. No change in our plans - home with catheter for outpatient urodynamics and arrangement of bilateral ureteral stone extraction. Subjective Subjective Date/Time Seen: 10/29/21 07:10 Episode of catheter discomfort followed by transiently bloody urine yesterday - likely consistent with bladder spasm. Urine now clear and pt. comfortable Review of Systems Cardiovascular: Cardiovascular: Denies chest pain, Denies lightheadedness, Denies palpitations and Denies dyspnea Respiratory: Respiratory: Denies dyspnea Gastrointestinal: Gastrointestinal: Denies diarrhea, Denies nausea and Denies vomiting Genitourinary: Genitourinary: Denies hematuria and Denies dysuria Endocrine: Endocrine: Denies palpitations Exam Const: General: no acute distress Resp: Effort & Inspection: normal respiratory effort GI: Inspection: non-distended GI Palp: No abdominal tenderness and No Guarding due to palpation present (GI) Auscultation: normal bowel sounds Objective Data Vital Signs Vital Signs: Vital Signs - 24 hr 10/28/21 14:00 10/28/21 21:06 10/29/21 06:00 Temperature 97.8 F 97.6 F 97.6 F Pulse Rate 70 65 68 Respiratory Rate 16 16 16 Blood Pressure 135/63 107/71 127/68 Pulse Oximetry 97 96 97 Intake/Output Intake/Output: Intake & Output 10/26/21 10/27/21 10/28/21 10/29/21 23:59 23:59 23:59 23:59 Intake Total 1660 1270 770 450 Output Total 1750 1475 1500 800 Balance -90 -205 -730 -350 Meds/Results Medications: Active Medications Generic Name Dose Route Start Last Admin Trade Name Freq PRN Reason Stop Dose Admin Acetaminophen 650 mg 10/22/21 11:33 Acetaminophen 325 Mg Tablet PO Q6H PRN Pain 1-6 Hydrocodone Bitart/Acetaminophen 1 tab 10/17/21 23:53 10/28/21 12:03 Hydrocodone/Acetaminophen (*Crx) 5-325 Mg Tablet PO 1 tab Q6H PRN Administration pain 7-10 Docusate Sodium 100 mg 10/20/21 21:00 10/28/21 21:12 Docusate Sodium 100 Mg Capsule PO 100 mg Q12HR LINDA Administration Donepezil HCl 10 mg 10/18/21 00:00 10/28/21 21:12 Donepezil Hcl 10 Mg Tablet PO 10 mg HS LINDA Administration Famotidine 20 mg 10/22/21 21:00 10/28/21 21:13 Famotidine 20 Mg/2 Ml Vial IV PUSH 20 mg Q12HR LINDA Administration Finasteride 5 mg 10/19/21 09:00 10/28/21 08:40 Finasteride 5 Mg Tablet PO 5 mg QAM LINDA Administration Metronidazole 500 mg in 100 mls @ 100 mls/hr 10/26/21 08:00 10/29/21 03:10 Flagyl 500 Mg/Iso Soln 100 Ml IVPB Infused Q6H LINDA Infusion Levofloxacin/Dextrose 750 mg in 150 mls @ 100 mls/hr 10/29/21 08:00 Levaquin 750 Mg/D5w 150 Ml IVPB Q24H LINDA Levetiracetam 500 mg 10/18/21 00:00 10/28/21 21:12 Levetiracetam 500 Mg Tablet PO 500 mg Q12HR LINDA Administration Memantine 10 mg 10/18/21 09:00 10/28/21 21:12 Memantine 10 Mg Tablet PO 10 mg Q12HR LINDA Administration Polyethylene Glycol 17 gm 10/20/21 13:41 Polyethylene Glycol 3350 17 Gm Powd.Pack PO QAM PRN Constipation Sertraline HCl 50 mg 10/21/21 09:00 10/28/21 08:40 Sertraline Hcl 50 Mg Tablet PO 50 mg QAM LINDA Administration Tamsulosin HCl 0.4 mg 10/19/21 21:00 10/28/21 21:13 Tamsulosin Hcl 0.4 Mg Capsule PO 0.4 mg HS LINDA Administration Radiology Results: ITS Im
[2021-10-29] MEDS: DOCUSATE SODIUM 100 MG CAPSULE PO (09:11)
[2021-10-29] MEDS: FINASTERIDE 5 MG TABLET PO (09:11)
[2021-10-29] MEDS: FAMOTIDINE 20 MG/2 ML VIAL IV PUSH (09:11)
[2021-10-29] MEDS: MEMANTINE 10 MG TABLET PO (09:11)
[2021-10-29] MEDS: SERTRALINE HCL 50 MG TABLET PO (09:11)
[2021-10-29] MEDS: levETIRAcetam 500 MG TABLET PO (09:11)
--- NOTE | 2021-10-29 12:12 | P.PNIM_ITS ---
Progress Note: A&P Assessment and Plan (1) Acute kidney injury: Code(s): N17.9 - Acute kidney failure, unspecified Status: Acute Assessment and Plan: creatinine on admission was 4.5, baseline creatinine of 1 earlier this month. Suspect obstructive etiology secondary to bilateral ureteral stones and urinary retention Creatinine had continued to improve (2) Hydronephrosis with urinary obstruction due to ureteral calculus: Code(s): N13.2 - Hydronephrosis with renal and ureteral calculous obstruction Status: Acute Assessment and Plan: CT on presentation showed bilateral hydroureteronephrosis with multiple distal bilateral ureteral stones * Urology consulted in managing * Patient is now s/p cystoscopy with bilateral ureteral stent placement on 10/17 Tolerated the procedure well * White removed 10/20, voiding without difficulty * patient will need outpatient follow-up for bilateral stent exchange and stone extraction in 1-2 weeks * Repeat CT chest showed bilateral hydroureteronephrosis with distended urinary bladder. Status post White placement back again 10/24/2021 * Resolution of hydronephrosis in follow-up renal ultrasound. * Will need to continue White catheter discharge and follow-up as outpatient basis with Urology. (3) Urinary tract infection: Qualifiers: Urinary tract infection type: site unspecified Hematuria presence: without hematuria Qualified Code(s): N39.0 - Urinary tract infection, site not specified Code(s): N39.0 - Urinary tract infection, site not specified Status: Acute Assessment and Plan: Urinalysis grossly abnormal. Operative note states the bladder is clearly infected. * Urine culture with growth of >100k Enterobacter cloacae, resistant to ceftriaxone * Ceftriaxone discontinued 10/19 * 10/19 Transitioned to cefepime. Increase to 2 g q24h (renal dosing) given improved CrCl * With increased confusion I wonder if this is effective cefepime particularly with his history of seizures, will switch him to Levaquin which can transition to oral as well * Blood culture repeat has been no growth to date Will plan to continue on Levaquin and Flagyl to cover for his urinary tract infection along with his diverticulitis. (4) Bacteremia: Code(s): R78.81 - Bacteremia Status: Acute Assessment and Plan: Blood cultures with growth of Enterobacter cloacae in 2 of 2 bottles. Source of infection is UTI * Continue IV cefepime as above * Mild increase in WBC to 15.9 10/23 but remains afebrile with stable vitals. Added vancomycin and repeat blood cultures ordered due to increased in leukocytosis * Switch to Levaquin which can transition to oral for 2 weeks total course of antibiotics * repeat blood culture has been no growth to date done on 10/23/2021 * Will also stop his vancomycin Leukocytosis continues to improve down to 12,000 today (5) Seizures: Onset Date: 1999 Code(s): R56.9 - Unspecified convulsions Status: Acute Assessment and Plan: No recent seizure activity * Continue Keppra (6) Generalized weakness: Code(s): R53.1 - Weakness Status: Acute Assessment and Plan: Patient presented with increased weakness. Suspect this is secondary to underlying infection and acute kidney injury, as well as overall physical deconditioning * Continue PT/OT as patient is having a current overall decline in general condition with rising WBC count. Today required assist to get back to bed and also was only able to do in bed exerc
--- NOTE | 2021-10-29 13:12 | PCNWS ---
Weekly nutritional screen. Patient is tolerating current diet with adequate intake. No weight loss reported. No nutritional needs at this time.
[2021-10-29 14:05] VITALS: BP 124/58; PULSE 63; RESP 16; TEMP 37; O2SAT 96
--- NOTE | 2021-10-29 14:59 | PM.DS ---
DS: Admitting Diagnosis Discharge Date 10/29/2021 Admitting Diagnosis Weakness DS: Discharge Diagnosis Discharge Diagnosis (1) Hydronephrosis with urinary obstruction due to ureteral calculus: Code(s): N13.2 - Hydronephrosis with renal and ureteral calculous obstruction Status: Acute Assessment and Plan: CT on presentation showed bilateral hydroureteronephrosis with multiple distal bilateral ureteral stones Urology consulted in managing Patient is now s/p cystoscopy with bilateral ureteral stent placement on 10/17 Tolerated the procedure well White removed 10/20, voiding without difficulty patient will need outpatient follow-up for bilateral stent exchange and stone extraction in 1-[address] chest showed bilateral hydroureteronephrosis with distended urinary bladder. Status post White placement back again 10/24/2021 Resolution of hydronephrosis in follow-up renal ultrasound. Will need to continue White catheter discharge and follow-up as outpatient basis with Urology. (2) Acute kidney injury: Code(s): N17.9 - Acute kidney failure, unspecified Status: Acute Assessment and Plan: creatinine on admission was 4.5, baseline creatinine of 1 earlier this month. Suspect obstructive etiology secondary to bilateral ureteral stones and urinary retention Creatinine had continued to improve (3) Urinary tract infection: Qualifiers: Urinary tract infection type: site unspecified Hematuria presence: without hematuria Qualified Code(s): N39.0 - Urinary tract infection, site not specified Code(s): N39.0 - Urinary tract infection, site not specified Status: Acute Assessment and Plan: Urinalysis grossly abnormal. Operative note states the bladder is clearly infected. Urine culture with growth of >100k Enterobacter cloacae, resistant to ceftriaxone Ceftriaxone discontinued 10/19 10/19 Transitioned to cefepime. Increase to 2 g q24h (renal dosing) given improved CrCl With increased confusion I wonder if this is effective cefepime particularly with his history of seizures, will switch him to Levaquin which can transition to oral as well Blood culture repeat has been no growth to date Will plan to continue on Levaquin and Flagyl to cover for his urinary tract infection along with his diverticulitis. (4) Bacteremia: Code(s): R78.81 - Bacteremia Status: Acute Assessment and Plan: Blood cultures with growth of Enterobacter cloacae in 2 of 2 bottles. Source of infection is UTI Continue IV cefepime as above Mild increase in WBC to 15.9 10/23 but remains afebrile with stable vitals. Added vancomycin and repeat blood cultures ordered due to increased in leukocytosis Switch to Levaquin which can transition to oral for 2 weeks total course of antibiotics repeat blood culture has been no growth to date done on 10/23/2021 Will also stop his vancomycin Leukocytosis continues to improve down to 12,000 today (5) Seizures: Onset Date: 1999 Code(s): R56.9 - Unspecified convulsions Status: Acute Assessment and Plan: No recent seizure activity Continue Keceline (6) Generalized weakness: Code(s): R53.1 - Weakness Status: Acute Assessment and Plan: Patient presented with increased weakness. Suspect this is secondary to underlying infection and acute kidney injury, as well as overall physical deconditioning Continue PT/OT as patient is having a current overall decline in general condition with rising WBC count. Today required assist to get back to bed and also was only able to do in bed exercises for strengthening. Continue fall precautions Spoke with patient's [id number] who believes the patient will need higher level of care on discharge, does not feel he is suitable to return home. Care coordination following and planning for SNF placement (7) Hypertension: Qualifiers: Hyperten
[2021-10-29 15:42] LABS: EDCOVIDSCREEN Negative (Negative)
== END 2021-10-29 16:41 | DRG 660 ==
LOC: ANHED 12:42 → ANH2MED 16:14
PROVIDERS: Internal Medicine; Nurse Practitioner Adult Health; Physician Assistant; Urology; Admitting Provider Family Medicine; Emergency Provider Emergency Medicine; PCP Family Medicine; Visit Provider Family Medicine
PROC: 0T788DZ Dilation of Bilateral Ureters with Intraluminal Device, Via Natural or Artificial Opening Endoscopic (ICD-10-PCS; CPT 52352; principal; 2021-10-17 14:30)
DX: N13.6 Pyonephrosis (principal); R78.81 Bacteremia; K57.92 Diverticulitis of intestine, part unspecified, without perforation or abscess without bleeding; N17.9 Acute kidney failure, unspecified; R33.8 Other retention of urine; B96.89 Other specified bacterial agents as the cause of diseases classified elsewhere; Z20.822 Contact with and (suspected) exposure to COVID-19; E87.6 Hypokalemia; I10 Essential (primary) hypertension; F32.A Depression, unspecified; F03.90 Unspecified dementia, unspecified severity, without behavioral disturbance, psychotic disturbance, mood disturbance, and anxiety; M19.90 Unspecified osteoarthritis, unspecified site; G40.909 Epilepsy, unspecified, not intractable, without status epilepticus; H91.93 Unspecified hearing loss, bilateral; Z87.442 Personal history of urinary calculi; Z86.73 Personal history of transient ischemic attack (TIA), and cerebral infarction without residual deficits; Z90.49 Acquired absence of other specified parts of digestive tract; Z66 Do not resuscitate
CPT/HCPCS: 36415; 70450; 71045; 71046; 71250; 74018; 74176; 76775; 80048; 80053; 81001; 82550; 82948; 83605; 83735; 84145; 85014; 85018; 85025; 85027; 85610; 85652; 85730; 86140; 87040; 87077; 87086; 87088; 87186; 87426; 93005; 96361; 96365; 97110; 97116; 97161; 97165; 97530; 97535; 99291; A9270; C1758; C1769; C2617; C9803; G0378; J0692; J0696; J1100; J1956; J2405; J2704; J3370; J3475; J7030; J7120

== ENCOUNTER 2021-11-12 00:42 | Day surgery (SDC) | payer MEDICARE, SELFPAY ==
[2021-11-05 11:08] VITALS: BMI 27.1
--- NOTE | 2021-11-05 11:21 | PC.NURSE ---
Report to the Outpatient Waiting Room, entrance under the green pavilion located off [facility], at time _1045_ on date _11/12/21_. OR Time: _1245_. - You and your visitor will be asked a series of questions to screen for COVID 19 for your protection. - A mask is required within the hospital. One visitor will be allowed to accompany the patient into the hospital. Patients visitor will be instructed to remain with patient at all times or leave the building. We will allow the visitor to come back to the postoperative area when patient is ready. Preoperative COVID Testing Requirements: NONE Patients may have clear liquids (water, carbonated beverages, clear teas, apple juice) until 3 hours prior to surgery (0945 AM) with a maximum of 20 ounces. - No food from midnight until time of surgery Take the following medications with a SIP of water the morning of surgery: _ KEPPRA, MEMANTINE & ZOLOFT_ Medications to discontinue per physician _N/A_, Date to take last dose_N/A_ Please no deodorant, or body powder the day of surgery. No jewelry (including any body piercings) or valuables the day of surgery, leave them at home. Please take a shower or bath the night before, or the morning of, surgery with an antibacterial soap. Wear comfortable, loose fitting clothing. - Jewelry must be removed prior to entering the operating room. Rings and piercings that are not removed may be cut off. - The hospital will not accept responsibility for valuables. - Please leave all valuables, including medications, at home the day of surgery. If you are going home after surgery, a licensed mechanic driver must drive you home. - NO public transportation without another adult. - We recommend that an adult stay with you for 24 hours following discharge. - We also recommend that you do not drive, make important decision, drink alcoholic beverages, or take any drugs that were not prescribed by your health care provider for at least 24 hours after your discharge time. Follow any additional instructions given to you from your surgeon. Instructions FAXED to _[facility] [phone] & CALLED TO SPOUSE ([email or web address])__and asked if any additional questions and then verbalized understanding. Patient advised to call surgeon office or pre surgery nurse liaisonED [phone] if any additional questions.
--- NOTE | 2021-11-09 08:15 | PM.HPGS ---
History of Present Illness History of Present Illness Consent: Risks, benefits, and alternatives have been discussed and questions answered. Patient agrees to proceed with procedure. Chief complaint: bilat ureteral stones Narrative: Krishna Saldana is a 86 year old male with a known history of recurrent urolithiasis. He recently underwent left ureteroscopy with extensive laser lithotripsy for a 2 cm stone in his distal left ureter. His left ureteral stent was removed on October 12. Following that he presented with bilateral obstructing ureteral stones and is status post bilateral ureteral stent placement. In addition to his problems with stones he has developed urinary retention and urodynamics show an atonic bladder. For this procedure today he is aware the risks including, but not limited to, ureteral injury, need to replace ureteral stents and recurrent urolithiasis. Review of Systems Cardiovascular: Cardiovascular: Denies chest pain, Denies lightheadedness, Denies palpitations and Denies dyspnea Respiratory: Respiratory: Denies dyspnea Gastrointestinal: Gastrointestinal: Denies diarrhea, Denies nausea and Denies vomiting Genitourinary: Genitourinary: Denies hematuria and Denies dysuria Endocrine: Endocrine: Denies palpitations [facility] Past Medical History Medical History Arthritis B12 deficiency Bilateral sensorineural hearing loss Dementia Hypertension Kidney stones Meningioma Seizures (1999) Admitted with status epilepticus in October 2014. Last seizure in 2016. Transient ischemic attack (1974) Surgical History Surgical History History of appendectomy (1962) History of arthroscopy of right shoulder History of cystoscopy History of inguinal hernia repair (1965) Family History Family History Sibling Melanoma Father Congestive heart failure Social History Social History Social History: Surrogate decision maker: Chivo Saldana, felecia. Code status: Do not resuscitate. 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 Spiritual care concerns: No Meds Home Medications and Allergies Home Medications Medication Instructions Recorded Confirmed Type donepezil [Aricept] 10 mg PO HS 07/31/19 11/05/21 History levetiracetam [Keppra] 500 mg PO BID 07/31/19 11/05/21 History memantine 10 mg PO BID 07/31/19 11/05/21 History docusate sodium 100 mg PO Q12HR #30 cap 10/29/21 11/05/21 Rx finasteride [Proscar] 5 mg PO QAM #30 tablet 10/29/21 11/05/21 Rx hydrocodone-acetaminophen 1 tablet PO Q6H PRN #5 tablet 10/29/21 11/05/21 Rx polyethylene glycol 3350 [Miralax] 17 g PO QAM PRN #30 ea 10/29/21 11/05/21 Rx sertraline [Zoloft] 50 mg PO QAM #30 tablet 10/29/21 11/05/21 Rx tamsulosin 0.4 mg PO HS #30 cap 10/29/21 11/05/21 Rx famotidine [Pepcid] 40 mg PO QAM 11/05/21 11/05/21 History Allergies Allergy/AdvReac Type Severity Reaction Status Date / Time No Known Allergies Allergy Verified 11/05/21 11:00 Exam Const: General: no acute distress Resp: Effort & Inspection: normal respiratory effort GI: Inspection: non-distended GI Palp: No abdominal tenderness and No Guarding due to palpation present (GI) Auscultation: normal bowel sounds Assessment and Plan Assessment and plan (1) Bilateral ureteral calculi: Code(s): N20.1 - Calculus of ureter Status: Acute Assessment and Plan: Cystoscopy, bilateral ureteral stent removal, piero
--- NOTE | 2021-11-11 14:29 | WPDANESEPPF ---
Anes - Initial Pre Proc Eval Procedure: Operation Date: 11/12/21 11:30 Proposed Procedures p Cystoscopy, Bilateral Ureteroscopy with Stone Extraction, Possible Bilateral Retrograde Pyelogram, Possible Bilateral Stent Placement, - Ryan Nguyễn MD s Possible Laser Lithotripsy - Ryan Nguyễn MD Date/Time: 11/11/21 14:29 Surgeon: Ryan Nguyễn MD Pre Op Diagnosis: bilat ureteral stones Patient Data Age: 86 Gender: M Height: 1.73 m Weight: 81.09 kg Allergies Allergy/AdvReac Type Severity Reaction Status Date / Time No Known Allergies Allergy Verified 11/05/21 11:00 Home Medications Medication Instructions Recorded Confirmed Type donepezil [Aricept] 10 mg PO HS 07/31/19 11/05/21 History levetiracetam [Keppra] 500 mg PO BID 07/31/19 11/05/21 History memantine 10 mg PO BID 07/31/19 11/05/21 History docusate sodium 100 mg PO Q12HR #30 cap 10/29/21 11/05/21 Rx finasteride [Proscar] 5 mg PO QAM #30 tablet 10/29/21 11/05/21 Rx hydrocodone-acetaminophen 1 tablet PO Q6H PRN #5 tablet 10/29/21 11/05/21 Rx polyethylene glycol 3350 [Miralax] 17 g PO QAM PRN #30 ea 10/29/21 11/05/21 Rx sertraline [Zoloft] 50 mg PO QAM #30 tablet 10/29/21 11/05/21 Rx tamsulosin 0.4 mg PO HS #30 cap 10/29/21 11/05/21 Rx famotidine [Pepcid] 40 mg PO QAM 11/05/21 11/05/21 History Patient hx anesthesia problems: none Family hx anesthesia problems: none Results Review: All pre-operative results and documents have been reviewed as part of the pre-operative evaluation. [facility] Past Medical History Medical History Arthritis B12 deficiency Bilateral sensorineural hearing loss Dementia Hypertension Kidney stones Meningioma Seizures (1999) Admitted with status epilepticus in October 2014. Last seizure in 2016. Transient ischemic attack (1974) Surgical History Surgical History History of appendectomy (1962) History of arthroscopy of right shoulder History of cystoscopy History of inguinal hernia repair (1965) Family History Family History Sibling Melanoma Father Congestive heart failure Social History Social History Social History: Surrogate decision maker: Chivo Saldana, son. Code status: Do not resuscitate. Smoking status: Never smoker Second hand tobacco smoke exposure: No Alcohol intake: never Drinks per week: 0 Substance use: never Substance use type: does not use Living [facility] Additional living arrangements comments: The patient lives with his in [facility]. Additional occupation/education comments: Retired from working with [employer]. Anes - Eval Final PreProcedure Day of Procedure 11/11/21 14:29 Patient weight: overweight Heart: regular rate and rhythm Lungs: clear to auscultation and normal air movement Airway: Mallampati scale class II Neurological: alert and oriented Last oral intake: >/= 8 hours ASA classification: III Emergent: no Anesthetic plan: proceed Anesthesia type and monitoring: general LMA and standard monitoring Results Review: All pre-operative results and documents have been reviewed as part of the pre-operative evaluation. Informed Consent: The patient's anesthetic plan and its attendant risks and benefits were discussed with the patient/family/POA. Questions were solicited and answers provided to the satisfaction of the patient/family/POA.
[2021-11-12] VITALS (9 sets, daily range): BP systolic 96–137; BP diastolic 57–84; PULSE 68–97; RESP 10–20; TEMP 36.2–36.4; O2SAT 94–100; BMI 24.3
--- NOTE | ~2021-11-12 | XR_ITS ---
EXAMINATION: XR stent kub - surgery EXAM DATE: 11/12/2021 12:56 INDICATION: Bilateral stent placement. TECHNIQUE: Fluoroscopy used during XR stent kub - surgery performed by Dr. Ryan Nguyễn MD. R adiologist was not present for the imaging or procedure. Total fluoroscopic time of 75 seconds. The DAP for this procedure was 0.94 mGym2. A total of 5 images sent to PACS from the exam. FINDINGS: Initial image demonstrates bilateral double-J ureteral stents in position. Wire then exte nding up the left ureter with fat stent removed. Final images demonstrates bilateral ureteral stents in expected position. Correlate with procedure note. IMPRESSION: Fluoroscopy used during stent exchange. Reviewed, dictated and finalized at location B.
--- NOTE | 2021-11-12 06:39 | WPDHPUPDATE1 ---
History and Physical Update Update Date/Time: 11/12/21 06:39 History and Physical has been reviewed, including an updated exam of the patient. There are NO changes in the patient's condition. Risks, benefits, and alternatives have been discussed and questions answered. Patient agrees to proceed with procedure.
[2021-11-12] MEDS: LACTATED RINGERS 1,000 ML 30 ML IV CONT ×2 (11:06→12:58)
[2021-11-12] MEDS: ceFAZolin 2 GM/D5W 50 ML 2 GM/50 ML BAG IVPB (11:44)
[2021-11-12] MEDS: LIDOCAINE HCL 2% GEL UROJET 10 ML PKG MUCOUS MEM (12:48)
--- NOTE | 2021-11-12 13:13 | W.PM.PROC2 ---
Procedure Note - Detailed Date of Procedure 11/12/21 Pre-op Diagnosis Bilat. ureteral stones Post-op Diagnosis Same Procedure Performed Cystoscopy, bilateral ureteral stent removal, bilateral ureteroscopy with stone extraction, bilateral ureteral stent replacement Surgeon Ryan Nguyễn MD Anesthesia General Description of Procedure Patient is brought to the operative suite was prepped draped in routine sterile fashion while in dorsal lithotomy position after the uneventful induction of a general LMA anesthetic. Cystoscopy is undertaken with a 21 F rigid cystoscope. Tip of the left ureteral stent is grasped and brought to the external urethral meatus. A 0.035 in glidewire was advanced in the left renal pelvis. Left ureteroscopy was undertaken with a short tapered semi-rigid ureteral scope. He has approximately 100 tiny little fragments accumulated in the distal left ureter. The largest of these was removed with the 1.9F Escape stone basket. We got down to such tiny little pieces that they could be grasped with the basket. That point I replaced the 4.8 F variable length left ureteral stent with proximal coil in the renal pelvis and distal coil in the bladder. The right ureteral stent was then grasped. The right ureter was dilated with for the stent 8 F/10 F dilator and then a 10 cm ureteral dilating balloon over a 0.035 in glidewire. He has 5 moderate size (4-5 mm) stones in the distal right ureter, all of which were removed intact without a need for lithotripsy. As on the left side I did replace the right ureteral stent using a 4.8 F variable length stent. Cystoscope was removed I replaced a at 16 F catheter to drainage. Estimated Blood Loss 0 Drains Yes Packing No Pathology Yes Complications No immediate complications Condition Stable Disposition PACU
--- NOTE | 2021-11-12 16:12 | SUR.PHASEII ---
This nurse called report to the SNF to nurse GASPAR and asked for transport to come her name was jacki.
== END 2021-11-12 15:40 | disposition home or self-care (01) ==
PROVIDERS: PCP Family Medicine; Visit Provider Urology
PROC: (CPT 52352; principal; 2021-11-12 11:30)
DX: N20.1 Calculus of ureter (principal); I10 Essential (primary) hypertension; G40.909 Epilepsy, unspecified, not intractable, without status epilepticus; F03.90 Unspecified dementia, unspecified severity, without behavioral disturbance, psychotic disturbance, mood disturbance, and anxiety; E53.8 Deficiency of other specified B group vitamins; Z86.73 Personal history of transient ischemic attack (TIA), and cerebral infarction without residual deficits
CPT/HCPCS: 52332; 52352; 82365; 88300; A9270; C1726; C1769; C2617; J0690; J1100; J2405; J2704; J7120; Q9966

== ENCOUNTER 2021-11-13 10:41 | Emergency (ER) | payer MEDICARE, SELFPAY ==
[2021-11-13] VITALS (11 sets, daily range): BP systolic 90–129; BP diastolic 53–78; PULSE 54–87; RESP 12–20; TEMP 36.6; O2SAT 97–98
--- NOTE | 2021-11-13 10:55 | ECG_ITS ---
Measurements Intervals [place] Rate: 59 P: 17 PA: 164 QRS: 12 QRSD: 89 T: 28 QT: 415 QTc: 413 Interpretive Statements SINUS BRADYCARDIA WITH OCCASIONAL SUPRAVENTRICULAR PREMATURE COMPLEXES ABNORMAL ECG COMPARED TO ECG 10/17/2021 10:59:39 SINUS BRADYCARDIA NOW PRESENT Electronically Signed On 11-13-2021 15:50:11 CDT by Nael Painting M.D.
[2021-11-13 11:05] LABS: Glucose Point of Care 177 mg/dl (65-105)
[2021-11-13] MEDS: SODIUM CHLORIDE 0.9% IV 1,000 ML 999 ML IV CONT ×2 (11:15→12:32)
[2021-11-13 11:26] LABS: Basophils Absolute Auto 0.1 K/mm3 (0.0-0.1); Basophils Percent Auto 0.4 % (0.2-1.2); Eosinophils Absolute Auto 0.2 K/mm3 (0-0.3); Eosinophils Percent Auto 1.9 % (0-4.4); Hematocrit 33.5 % (42.0-52.0); Hemoglobin 10.6 g/dL (14.0-18.0); Immature Granulocyte Absolute 0.08 K/mm3 (0.00-0.031); Immature Granulocyte Percent A 0.7 % (0-0.5); Lymphocytes Absolute Auto 1.31 K/mm3 (0.9-3.2); Lymphocytes Percent Auto 11.1 % (18.3-44.2); Mean Corpuscular HGB Conc 31.6 g/dl (32-36); Mean Corpuscular Hemoglobin 30.2 pg (26-34); Mean Corpuscular Volume 95.4 fl (80-100); Monocytes Percent Auto 8.7 % (2.6-8.5); Neutrophils Absolute Auto 9.1 K/mm3 (1.3-6.7); Neutrophils Percent Auto 77.2 % (45.5-73.1); Platelet Count Result 222 k/mm3 (150-375); Red Blood Count 3.51 M/mm3 (4.6-6.20); White Blood Count 11.8 K/mm3 (4.5-10.0)
[2021-11-13 11:27] LABS: Lactic Acid Reflex 2.4 mmol/L (0.7-2.1)
[2021-11-13 11:28] LABS: Alanine Aminotransferase 13 U/L (4-50); Albumin Level 3.4 g/dL (3.5-5.1); Alkaline Phosphatase 125 U/L (38-126); Anion Gap 4 mmol/L (8-16); Aspartate Amino Transferase 25 U/L (17-59); Bilirubin,Total 0.5 mg/dL (0.2-1.3); Blood Urea Nitrogen 20 mg/dL (9-20); Calcium 10.5 mg/dL (8.4-10.2); Carbon Dioxide 28 mmol/L (22-30); Chloride 103 mmol/L (98-107); Estimated CRCL calculation 43 ml/min; Estimated Glomerular Filt Rate 57; Glucose 119 mg/dL (65-110); Potassium 5.1 mmol/L (3.4-5.0); Sodium 135 mmol/L (137-145)
[2021-11-13 11:38] LABS: Partial Thromboplastin Time 31.1 SECONDS (22.3-36.8)
[2021-11-13 12:44] LABS: INR 1.3; Prothrombin Time 15.3 Seconds (11.1-14.7)
--- NOTE | 2021-11-13 13:18 | ED.SYNCOPE ---
HPI - Syncope General Chief Complaint: Syncope Stated Complaint: syncopal Time Seen by Provider: 11/13/21 10:44 Source: patient, EMS, RN notes reviewed and old records reviewed Mode of arrival: EMS Limitations: dementia History of Present Illness HPI narrative: This is an 86 year old male who presents for evaluation of syncope episode. Nursing reports patient had a syncopal episode when they stool him up to perform a weight. No CPR. Patient is alert and oriented in ER. Patient did not hit his head. Patient complains of chronic back pain but he denies nausea, vomiting, or abdominal pain. He also reports long standing weakness. He was discharged yesterday after having bilateral ureteral stent replacement. Patient denies chest pain or shortness of breath. He has been in SNF for 2 weeks for PT/OT due to his weakness. Related Data Home Medications Medication Instructions Recorded Confirmed donepezil [Aricept] 10 mg PO HS 07/31/19 11/12/21 levetiracetam [Keppra] 500 mg PO BID 07/31/19 11/12/21 memantine 10 mg PO BID 07/31/19 11/12/21 famotidine [Pepcid] 40 mg PO QAM 11/05/21 11/12/21 Allergies Allergy/AdvReac Type Severity Reaction Status Date / Time No Known Allergies Allergy Verified 11/12/21 10:48 Review of Systems Review of Systems: All systems reviewed & are unremarkable except as noted in HPI and below Cardiovascular: Cardiovascular: Denies chest pain Respiratory: Respiratory: Denies cough and Denies dyspnea Gastrointestinal: Gastrointestinal: Denies abdominal pain, Denies diarrhea, Denies nausea and Denies vomiting Genitourinary: Genitourinary: Reports hematuria (chronic) Musculoskeletal: Musculoskeletal: Reports back pain [facility] Past Medical History Medical History Arthritis B12 deficiency Bilateral sensorineural hearing loss Dementia Hypertension Kidney stones Meningioma Seizures (1999) Admitted with status epilepticus in October 2014. Last seizure in 2016. Transient ischemic attack (1974) Surgical History Surgical History History of appendectomy (1962) History of arthroscopy of right shoulder History of cystoscopy History of inguinal hernia repair (1965) Family History Family History Sibling Melanoma Father Congestive heart failure Social History Social History Social History: Surrogate decision maker: Chivo Saldana, son. Code status: Do not resuscitate. Smoking status: Never smoker Second hand tobacco smoke exposure: No Alcohol intake: never Drinks per week: 0 Substance use: never Substance use type: does not use Additional living arrangements comments: The patient lives with his in [place]. 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 Exam Const: General: no acute distress, alert and ill appearing chronically Orientation/consciousness: patient oriented x3 Eyes: EOM: EOMs intact bilaterally Chest: Chest palpation & inspection: normal inspection of the chest Resp: Effort & Inspection: normal respiratory effort and no retractions Auscultation: clear to auscultation bilaterally Cardio: Rate: regular rate Rhythm: regular rhythm Heart sounds: no murmurs GI: Auscultation: normal bowel sounds Other: soft, nontender Urinary Catheter: Urinary Catheter: patent and draining and urine red Back/Spine/Pelvis: Back: no CVA tenderness Skin: General skin exam: normal color Neuro: General: patient oriented x3, moves all extremities and CN's II-XI intact bilaterally Psych: Mental Status: mental status grossly normal Affect: normal affect Course Reevaluation(s) Reevaluation #1: Nursing reports patient is stand assist and he is not to ambulate or stand on his own. Patient is u
[2021-11-13 14:18] LABS: Reflex Lactic Acid Yes or No Add Lactic
[2021-11-13 14:55] LABS: Lactic Acid 1.2 mmol/L (0.7-2.1)
--- NOTE | 2021-11-13 16:14 | PC.NURSE ---
[facility] accepted return to [facility] eta 1944 trip#[id number]
--- NOTE | 2021-11-13 16:58 | PC.NURSE ---
ETA for ambulance back to [facility] is 1999. ordered pt dinner tray.
--- NOTE | 2021-11-13 17:01 | PC.NURSE ---
Report Given to Sonia at [facility].
== END 2021-11-13 17:37 ==
PROVIDERS: Emergency Provider General Practice; PCP Family Medicine
DX: I95.1 Orthostatic hypotension (principal); F03.90 Unspecified dementia, unspecified severity, without behavioral disturbance, psychotic disturbance, mood disturbance, and anxiety; I10 Essential (primary) hypertension; M19.90 Unspecified osteoarthritis, unspecified site; E53.8 Deficiency of other specified B group vitamins; Z86.73 Personal history of transient ischemic attack (TIA), and cerebral infarction without residual deficits; Z87.442 Personal history of urinary calculi; I49.1 Atrial premature depolarization
CPT/HCPCS: 36415; 80053; 82948; 83605; 85025; 85610; 85730; 93005; 96360; 96361; 99284; J7030

== ENCOUNTER 2021-11-16 08:22 | Inpatient (IN) | payer MEDICARE, SELFPAY ==
[2021-11-16] VITALS (8 sets, daily range): BP systolic 107–127; BP diastolic 55–78; PULSE 61–78; RESP 14–19; TEMP 36.7–37.8; O2SAT 95–100
--- NOTE | ~2021-11-16 | CT_ITS ---
EXAMINATION: CT abdomen pelvis w con DATE: 11/16/2021 09:54 INDICATION: Left sided abdominal pain TECHNIQUE: Computed tomography (CT) of the abdomen and pelvis was performed with 100 mL Omnipaque-350 intravenous contrast. Automated exposure control and iterative reconstruction technique were employe d. The dose-length product was 583.97 mGy-cm. COMPARISON: 10/24/2021 FINDINGS: Calcified nodule in the left lower lobe consistent with old granulomatous disease. Mild atelectasis/s carring in the bilateral lower lobes. Heart size is normal. Atherosclerotic coronary artery calcifica tion is. No pericardial or pleural effusion. Liver, gallbladder, pancreas and bilateral adrenal gland s are normal. Multiple splenic calcifications consistent with old granulomatous disease. Bilateral in ternal ureteral stents with loops formed in the bladder, right renal pelvis and an upper pole calyx o f the left kidney. Bilateral renal cysts the largest on the right measuring 4.5 cm with with thin cur vilinear calcific location along incomplete peripheral thin septation. No enhancing solid soft tissue component. 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 White ca theter in the bladder. Multiple tiny stones in the distalmost left ureter and in the dependent aspect of the bladder. No hydronephrosis. Prostatomegaly measuring up to 6.5 x 5.7 cm. Mild to moderate sca ttered diverticulosis. There is wall thickening and inflammatory stranding centered at a diverticulum at the junction of the descending and sigmoid colon consistent with diverticulitis. No abscess or fr ee intraperitoneal gas or fluid. No bowel obstruction. No pathologically enlarged abdominal or pelvic lymphadenopathy. Mild to moderate bilateral hip osteoarthritis. Lumbar dextroscoliosis with severe s pondylosis. IMPRESSION: 1. Radiographically uncomplicated diverticulitis. 2. Multiple tiny stones in the distalmost left ureter as well as a few bladder stones. White catheter and bilateral internal ureteral stents in expected position with no hydronephrosis. 3. Prostatomegaly. Reviewed, dictated and finalized at location A. IMPRESSION: 1. Radiographically uncomplicated diverticulitis. 2. Multiple tiny stones in the distalmost left ureter as well as a few bladder stones. White catheter and bilateral internal ureteral stents in expected posit ion with no hydronephrosis. 3. Prostatomegaly.
--- NOTE | ~2021-11-16 | CT_ITS ---
EXAMINATION: CT abdomen pelvis w con DATE: 11/18/2021 10:45 INDICATION: Acute diverticulitis. TECHNIQUE: Computed tomography (CT) of the abdomen and pelvis was performed with 100 mL Omnipaque 350 intravenous contrast. Automated exposure control and iterative reconstruction technique were employe d. The dose-length product was 822.27 mGy-cm. COMPARISON: CT abdomen and pelvis 11/16/2021 FINDINGS: The visualized portions of the lung bases demonstrate mild atelectasis. A calcified left john ng nodule is consistent with old granulomatous disease. No pleural effusion. The heart size is normal . There are coronary artery calcifications. No pericardial effusion. There are pulmonary emboli in ri ght lower lobe. The liver is normal. The gallbladder is normal in size and contains contrast. Calcifi cations in the spleen are consistent with old granulomatous disease. The pancreas and adrenal glands are normal. There are cysts in the kidneys measuring up to 4.4 cm on the right. There is cortical thi nning of the kidneys. There is mild right hydronephrosis and hydroureter. There is a right internal u reteral stent in expected position. There is left-sided hydroureter. There is a left internal uretera l stent in expected position. Again seen are stones in the distal left ureter measuring up to 4 mm. A gain seen are small stones in the bladder. There is a White catheter in the bladder. The prostate is severely enlarged. There are scattered diverticula in the colon. Again seen is fat stranding around d iverticula in the proximal sigmoid colon, consistent with diverticulitis. There is liquid stool in co linda suggestive of diarrhea. There is wall thickening of the rectosigmoid, consistent with colitis. Th e appendix is not visualized. There are no pathologically enlarged lymph nodes. There is no free intr aperitoneal fluid. There is lumbar dextroscoliosis and severe spondylosis. 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 There is 11 mm anterolisthesis of L5 on S1. IMPRESSION: 1. Stable proximal sigmoid diverticulitis. Worsened rectosigmoid colitis. 2. Right lower lobe pulmonary emboli. 3. Mild right hydronephrosis and hydroureter with internal ureteral stent in expected position. Small stones in the distal left ureter and bladder. Left-sided hydroureter with internal ureteral stent in expected position. Reviewed, dictated and finalized at location B. IMPRESSION: 1. Stable proximal sigmoid diverticulitis. Worsened rectosigmoid colitis. 2. Right lower lobe pulmonary emboli. 3. Mild right hydronephrosis and hydroureter with internal ureteral stent in ex pected position. Small stones in the distal left ureter and bladder. Left-sided hydroureter with internal ureteral stent in expected position.
--- NOTE | ~2021-11-16 | US_ITS ---
EXAMINATION: US venous doppler [facility] DATE: 11/19/2021 16:14 INDICATION: Shortness of breath, known pulmonary embolus TECHNIQUE: Villeda scale images without and with compression and Doppler images of the bilateral lower e xtremity veins were obtained. COMPARISON: None FINDINGS: The right common femoral vein, profunda femoral vein, femoral vein, popliteal vein, peroneal trunk, p osterior tibial veins, and greater saphenous vein are patent. There is thrombosis in the left popliteal and peroneal veins. The left common femoral vein, profunda femoral vein, femoral vein, posterior tibial veins, and greater saphenous vein are patent. A Velez's cyst is noted. IMPRESSION: 1. Thrombosis in the left popliteal and peroneal veins, known pulmonary embolus. 2. No evidence of deep venous thrombosis in the right lower extremity. Reviewed, dictated and finalized at location F. IMPRESSION: 1. Thrombosis in the left popliteal and peroneal veins, known pulmonary embolus . 2. No evidence of deep venous thrombosis in the right lower extremity.
[2021-11-16] MEDS: SODIUM CHLORIDE 0.9% IV 1,000 ML 999 ML IV CONT (09:11)
[2021-11-16 09:12] LABS: Hemoglobin 10.5 g/dL (14.0-18.0); Mean Corpuscular HGB Conc 31.8 g/dl (32-36); Mean Corpuscular Hemoglobin 30.3 pg (26-34); Mean Corpuscular Volume 95.4 fl (80-100); Mean Platelet Volume 9.9 fl (7.4-10.4); Platelet Count Result 206 k/mm3 (150-375); Red Blood Count 3.46 M/mm3 (4.6-6.20); White Blood Count 19.1 K/mm3 (4.5-10.0)
[2021-11-16 09:30] LABS: Appearance Urine Cloudy (Clear); Bilirubin Urine Negative (Negative); Blood Urine 3+ (Negative); Color Urine Amber (Yellow); Glucose Urine UA Negative (Negative); Ketones Urine Negative (Negative); Leukocyte Esterase Ur 1+ LEU/UL (Negative); Nitrate Urine Negative (Negative); Protein Urine 2+ mg/dL (Negative); Specific Grav Ur 1.025 (1.001-1.035); Urobilinogen Urine 0.2 mg/dL (<2.0)
[2021-11-16 09:32] LABS: Alanine Aminotransferase 12 U/L (4-50); Albumin Level 3.5 g/dL (3.5-5.1); Alkaline Phosphatase 112 U/L (38-126); Anion Gap 5 mmol/L (8-16); Aspartate Amino Transferase 21 U/L (17-59); Bilirubin,Total 0.8 mg/dL (0.2-1.3); Blood Urea Nitrogen 15 mg/dL (9-20); Carbon Dioxide 27 mmol/L (22-30); Chloride 101 mmol/L (98-107); Estimated Glomerular Filt Rate > 60; Glucose 135 mg/dL (65-110); Lipase 25 U/L (23-300); Potassium 4.3 mmol/L (3.4-5.0); Sodium 133 mmol/L (137-145)
[2021-11-16 09:35] LABS: Lymphocytes Absolute Manual 0.38 K/mm3 (1.1-4.5); Monocytes Absolute Manual 1.52 K/mm3 (0.1-0.90); Monocytes Percent Manual 8 % (3-9); Neutrophils Percent Manual 90 % (46-73); Platelet Estimate Adequate (Adequate); Total Cells Counted 100
[2021-11-16 09:36] LABS: Bacteria Urine Trace /hpf; Budding Yeast Urine Present /hpf; Calcium Oxalate Crystals Urine Present /hpf; Mucus Urine Rare /lpf; RBC Urine >75 /hpf (0-2); WBC Urine 21-30 /hpf
[2021-11-16 09:48] LABS: Add Urine Microscopic? YES
--- NOTE | 2021-11-16 09:48 | PC.NURSE ---
Pt to CT scan at this time.
--- NOTE | 2021-11-16 10:24 | ED.ABDPAIN ---
HPI - Abdominal Pain General Chief Complaint: Abdominal Pain Stated Complaint: left flank pain Time Seen by Provider: 11/16/21 08:25 Source: RN notes reviewed History of Present Illness HPI narrative: Patient presents emergency department from home for left flank and abdominal pain. Patient states symptoms been ongoing for the past 3 days pain located left flank and rates around the left side of the abdomen described as sharp and stabbing. He denies any fevers or chills, nausea vomiting diarrhea or any other symptoms. States not taking thing for the pain at home Related Data Home Medications Medication Instructions Recorded Confirmed donepezil [Aricept] 10 mg PO HS 07/31/19 11/12/21 levetiracetam [Keppra] 500 mg PO BID 07/31/19 11/12/21 memantine 10 mg PO BID 07/31/19 11/12/21 famotidine [Pepcid] 40 mg PO QAM 11/05/21 11/12/21 Allergies Allergy/AdvReac Type Severity Reaction Status Date / Time No Known Allergies Allergy Verified 11/16/21 09:01 Review of Systems Review of Systems: Gen.: Denies fevers or chills ENT: Denies congestion Respiratory: Denies shortness of breath or cough CV: Denies chest pain or palpitations GI: See HPI Musculoskeletal: Denies back pain or muscle pain Neuro: Denies numbness, tingling, weakness or focal weakness Skin: Denies rash Except as documented, all other systems reviewed and negative [facility] Past Medical History Medical History Arthritis B12 deficiency Bilateral sensorineural hearing loss Dementia Hypertension Kidney stones Meningioma Seizures (1999) Admitted with status epilepticus in October 2014. Last seizure in 2016. Transient ischemic attack (1974) Surgical History Surgical History History of appendectomy (1962) History of arthroscopy of right shoulder History of cystoscopy History of inguinal hernia repair (1965) Family History Family History Sibling Melanoma Father Congestive heart failure Social History Social History Social History: Surrogate decision maker: Chivo Saldana, son. Code status: Do not resuscitate. Smoking status: Never smoker Second hand tobacco smoke exposure: No Alcohol intake: never Drinks per week: 0 Substance use: never Substance use type: does not use Additional living arrangements comments: The patient lives with his in [place]. 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 Exam Narrative: APPEARANCE: No acute distress, nontoxic, resting in bed HEENT: Normocephalic, atraumatic, OMM RESPIRATORY: No respiratory distress, clear to auscultation bilaterally with no rhonchi wheezing or rales CARDIOVASCULAR: RRR s murmur ABDOMINAL: Soft nondistended tender palpation left upper quadrant left lower quadrant no tenderness right upper quadrant right lower quadrant no rebound or guarding chronic indwelling White MUSCULOSKELETAl: Moves all extremities. No clubbing, cyanosis or edema. NEURO: Awake and alert. Following commands, speech normal, no focal deficits SKIN:: Warm, dry. Normal Color PSYCHIATRIC: Normal affect/mood Course Course Emergency Course: Reviewed old records Discussed with Dr. Willams agrees with admission Discussed with Rosita Nguyễn agrees with consult Discussed with patient and family results of workup and diagnosis. Discussed need for admission. Patient and family understand and agree to current treatment plan Vital Signs Vital signs: Vital Signs Temperature 98.0 F 11/16/21 08:25 Pulse Rate 77 11/16/21 08:25 Respiratory Rate 14 11/16/21 08:25 Blood Pressure 122/69 11/16/21 08:25 Pulse Oximetry 99 11/16/21 08:25 Temperature 98.0 F 11/16/21 08:25 Pulse Rate 67 11/16/21 10:25 Respiratory Rate 18
[2021-11-16 10:33] LABS: Lactic Acid Reflex 1.2 mmol/L (0.7-2.1)
--- NOTE | 2021-11-16 11:00 | PM.IMHP ---
H&P: HPI History of Present Illness Date/Time: 11/16/21 1100 Chief Complaint: Abdominal pain Narrative: Mr. Saldana is a 86 year male with past medical history kidney stones dementia, hypertension seizures TIA who presented to the ED with complaints left-sided abdominal flank pain. Patient stated that symptoms started last night and gotten worse through this. According to his she had picked him up on Tuesday from rehab to take him back to the apartment in [facility] living at [facility], he was doing okay and they had shared a frozen meal together. She stated that this morning he had woke up and stated that he was having his left lower abdominal pain that was radiating to his umbilicus along with penile pain with a catheter was and across the lower abdomen. His stated that she was not seeing much urine however when she pushed the catheter and that more urine came out. Patient states that his pain is worse with palpitation and that nothing has helped to relieve the pain. He does deny any exacerbation with food or beverage. He also states that he is pretty weak and fatigued. His stated that when he was back to the apartment that he was unable to stand or walk however with therapy he was able to do both of those things. The patient stated that he can walk however he has just been very weak since all of this started. Patient and his is deny any changes to his urine or habits. She did state the patient does have chronic pain in his shoulder and back. He denies any chest pain, shortness of breath, nausea, vomiting, constipation, fevers, sweats, chills. He did say that he had 1 bout of diarrhea. He also denies any headaches, visual changes, syncope, dizziness, numbness and tingling. Patient is being admitted to our services under observation. Review of Systems Review of Systems: All systems reviewed & are unremarkable except as noted in HPI and below [facility] Past Medical History Medical History Arthritis B12 deficiency Bilateral sensorineural hearing loss Dementia Hypertension Hypotension Kidney stones Meningioma Seizures (1999) Admitted with status epilepticus in October 2014. Last seizure in 2016. Transient ischemic attack (1974) Surgical History Surgical History History of appendectomy (1962) History of arthroscopy of right shoulder History of cystoscopy History of inguinal hernia repair (1965) Family History Family History Sibling Melanoma Father Congestive heart failure Social History Social History (Updated 11/16/21 @ 12:41 by Wicho Dubois CHILDREN'S COUNSELOR-C) Social History: Surrogate decision maker: Annette Saldana who is his Code status: Do not resuscitate. Daughter in law is a Proof Technician in [place], [place]. Roughly one year ago patient and his sold their home in [place] and moved to [facility]. Last week, they moved into an apartment [facility] the [facility]. They have two children a daughter that lives in [place] and a son that lives in [place]. Smoking status: Never smoker Second hand tobacco smoke exposure: No Alcohol intake: never Drinks per week: 0 Substance use: never Substance use type: does not use Living arrangements: with family Additional living arrangements comments: The patient lives with his in [facility]. 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
--- NOTE | 2021-11-16 12:06 | ADMGEN ---
This patient, Krishna Saldana, was admitted to 3 [facility] Surg Room 312-01 at 1130. Patient/family oriented to hospital policies and general routines including ID bracelet, bed and alarms, visiting hours, pain management, procedures, bathroom and other care routines, personal items, smoking policy, room service/diet, and visiting hours. Information on how to activate the Rapid Response Team has been discussed. Patient/Family are encouraged to report perceived risks to care and to ask questions if they do not understand what they are told or what they should do.
[2021-11-16] MEDS: SODIUM CHLORIDE 0.9% IV 1,000 ML 100 ML IV CONT ×2 (12:20→22:33)
--- NOTE | 2021-11-16 15:26 | WPDURCON ---
Assessment and Plan Assessment and plan (1) History of renal stent: Status: Acute Assessment and Plan: Bilateral stents in place on CT. Creatinine is stable, no concern for intervention and these are likely not contributing to his pain. (2) Bilateral ureteral calculi: Code(s): N20.1 - Calculus of ureter Status: Acute Assessment and Plan: No need to intervene at this time. We will watch him from a distance. His pain is in the left lower quadrant that is parallell with his CT findings suggesting diverticulitis. He will f/u with Dr. Nguyễn in the office as planned on 11/24/21. (3) BPH (benign prostatic hyperplasia): Code(s): N40.0 - Benign prostatic hyperplasia without lower urinary tract symptoms Status: Acute (4) Acute UTI: Code(s): N39.0 - Urinary tract infection, site not specified Status: Acute Assessment and Plan: Urine Culture is pending, I don't suspect an infection, as he has a catheter and bilateral stents in place. Bloody urine and leukocytes are expected. Urology Consult Note HPI Date Seen: 11/16/21 Requesting Physician: Allyson Willams MD Primary Care Provider: Srinivasa Macias MD Consult Narrative Narrative: Krishna Saldana is a 86 year old male who has presented to the ER twice since his procedure with Dr. Nguyễn on 11/12/21. He first came in the day after on 11/13/21 for a syncopal episode which was determined to be caused from orthostatic hypotension. His Flomax was stopped and he was sent home. He then presented to the ER again today with c/o left lower quadrant pain and left flank pain. His CT shows radiographically uncomplicated diverticulitis,multiple tiny stones in the distalmost left ureter as well as a few bladder stones, fajardo catheter and bilateral internal ureteral stents in expected position with no hydronephrosis as well as prostatomegaly. HIs WBC is increased to 19.1 and creatinine is 1.00. He is being treated for diverticulitis but we were asked to see him to ensure that there was no reason to suspect post operative complications causing his symptoms. His urine is blood in the catheter bag which is expected d/t his bilateral stents. He had a cystoscopy with bilateral stent exchange, bilateral ureteroscopy with stone extraction on 11/12/[address] Nguyễn. Review of Systems Cardiovascular: Cardiovascular: Denies chest pain Respiratory: Respiratory: Reports no additional respiratory complaints Gastrointestinal: Gastrointestinal: Reports abdominal pain, Denies nausea and Denies vomiting Genitourinary: Genitourinary: Reports hematuria, Denies genital pain and Reports flank pain PMFSH Past Medical History Medical History Arthritis B12 deficiency Bilateral sensorineural hearing loss Dementia Hypertension Hypotension Kidney stones Meningioma Seizures (1999) Admitted with status epilepticus in October 2014. Last seizure in 2016. Transient ischemic attack (1974) Surgical History Surgical History History of appendectomy (1962) History of arthroscopy of right shoulder History of cystoscopy History of inguinal hernia repair (1965) Family History Family History Sibling Melanoma Father Congestive heart failure Social History Social History Social History: Surrogate decision maker: Anentte Saldana who is his Code status: Do not resuscitate. Daughter in law is a Physician Intensivist in [place], [place]. Roughly one year ago patient and his sold their home in [place] and moved to [facility]. Last week, they moved into an apartment instead of the [facility]. They have two children a daughter that lives in [place] and a son that lives in [place]. Smoking status: Never smoker Second hand tobacco smoke exposure: No Alcoh
[2021-11-16] MEDS: BETHANECHOL CHLORIDE 25 MG TABLET PO (17:12)
[2021-11-16] MEDS: ENOXAPARIN 40 MG/0.4 ML SYRINGE SUB-Q (17:12)
[2021-11-16] MEDS: levETIRAcetam 500 MG TABLET PO (20:46)
[2021-11-16] MEDS: DOCUSATE SODIUM 100 MG CAPSULE PO (20:46)
[2021-11-16] MEDS: DONEPEZIL HCL 10 MG TABLET PO (20:46)
[2021-11-16] MEDS: MEMANTINE 10 MG TABLET PO (20:46)
[2021-11-17 06:00] VITALS: BP 120/60; PULSE 75; RESP 20; TEMP 37.4; O2SAT 99
[2021-11-17] MEDS: BETHANECHOL CHLORIDE 25 MG TABLET PO ×2 (06:22→17:05)
[2021-11-17 06:57] LABS: Basophils Percent Auto 0.2 % (0.2-1.2); Eosinophils Absolute Auto 0.1 K/mm3 (0-0.3); Eosinophils Percent Auto 0.3 % (0-4.4); Hematocrit 30.4 % (42.0-52.0); Immature Granulocyte Absolute 0.26 K/mm3 (0.00-0.031); Immature Granulocyte Percent A 1.3 % (0-0.5); Lymphocytes Percent Auto 3.6 % (18.3-44.2); Mean Corpuscular HGB Conc 32.9 g/dl (32-36); Mean Corpuscular Hemoglobin 30.6 pg (26-34); Mean Platelet Volume 10.2 fl (7.4-10.4); Monocytes Absolute Auto 1.4 K/mm3 (0.1-0.6); Monocytes Percent Auto 7.2 % (2.6-8.5); Neutrophils Absolute Auto 17.1 K/mm3 (1.3-6.7); Neutrophils Percent Auto 87.4 % (45.5-73.1); Platelet Count Result 171 k/mm3 (150-375); Red Blood Count 3.27 M/mm3 (4.6-6.20); Red Cell Distribution Width 14.1 % (11.5-14.5); White Blood Count 19.6 K/mm3 (4.5-10.0)
[2021-11-17 07:03] LABS: Alanine Aminotransferase 9 U/L (4-50); Albumin Level 2.7 g/dL (3.5-5.1); Alkaline Phosphatase 96 U/L (38-126); Anion Gap 3 mmol/L (8-16); Aspartate Amino Transferase 18 U/L (17-59); Bilirubin,Total 1.5 mg/dL (0.2-1.3); Blood Urea Nitrogen 13 mg/dL (9-20); Calcium 9.1 mg/dL (8.4-10.2); Carbon Dioxide 24 mmol/L (22-30); Chloride 104 mmol/L (98-107); Estimated Glomerular Filt Rate > 60; Glucose 104 mg/dL (65-110); Potassium 4.4 mmol/L (3.4-5.0); Sodium 131 mmol/L (137-145)
[2021-11-17] MEDS: SODIUM CHLORIDE 0.9% IV 1,000 ML 100 ML IV CONT ×2 (07:54→17:05)
[2021-11-17] MEDS: HYDROcodone/acetaminophen (*CRX) 5-325 MG TABLET 1 TAB PO (07:54)
[2021-11-17] MEDS: FINASTERIDE 5 MG TABLET PO (07:55)
[2021-11-17] MEDS: DOCUSATE SODIUM 100 MG CAPSULE PO ×2 (07:55→20:06)
[2021-11-17] MEDS: levETIRAcetam 500 MG TABLET PO ×2 (07:55→20:06)
[2021-11-17] MEDS: MEMANTINE 10 MG TABLET PO ×2 (07:55→20:06)
[2021-11-17] MEDS: SERTRALINE HCL 50 MG TABLET PO (07:56)
[2021-11-17] MEDS: FAMOTIDINE 20 MG TABLET 40 MG PO (07:56)
[2021-11-17 08:00] VITALS: PULSE 75; RESP 20; O2SAT 99
[2021-11-17 09:28] VITALS: O2SAT 99
--- NOTE | 2021-11-17 09:59 | PM.IMPN ---
Progress Note: A&P Assessment and Plan (1) Diverticulitis: Code(s): K57.92 - Diverticulitis of intestine, part unspecified, without perforation or abscess without bleeding Status: Acute Assessment and Plan: Abd CT Shows uncomplicated diverticulitis Tenderness with palpation left lower quadrant WBC 19.1 upon admission, still having low-grade temps. Continue IV Zosyn IV fluids at 100ml/hr Will keep the patient NPO until white count comes down and he clinically improves. Trend labs (2) Kidney stone on left side: Code(s): N20.0 - Calculus of kidney Status: Acute Assessment and Plan: no planned from Urology (3) Dementia: Code(s): F03.90 - Unspecified dementia without behavioral disturbance Status: Acute Assessment and Plan: Continue home donepezil and memantine Trend mood Seems stable at this point (4) BPH (benign prostatic hyperplasia): Code(s): N40.0 - Benign prostatic hyperplasia without lower urinary tract symptoms Status: Acute Assessment and Plan: Continue home finasteride Trend urine output Urology outpatient Urinary catheter in place (5) Seizure: Code(s): R56.9 - Unspecified convulsions Status: Acute Assessment and Plan: Does not seem to be a problem at this point Continue home keppra 500mg PO BID PT/OT Subjective Date/time seen: 11/17/21 09:59 Exam Const: General: cooperative, well developed, alert, awake, confusion, ill appearing chronically and tired appearing Nutritional Appearance: well nourished Orientation/consciousness: oriented to person, oriented to place and confusion Limitations: no limitations HENMT: Head: normal to inspection Ears: hearing grossly normal bilaterally General nose exam: Normal external nose present Mouth: Yes Normal oral and palatal mucosa present, Yes lip normal and Yes tongue normal Teeth and gingiva: abnormal tooth and associated gingiva and poor dentition Eyes: General: appearance normal, both eyes and all related structures Pupils: Equal, round and reactive pupils present Neck: Neck: normal visual inspection, full ROM, trachea midline and supple Chest: Chest palpation & inspection: normal inspection of the chest Resp: Effort & Inspection: able to speak in complete sentences, Actively coughing and tachypneic Auscultation: clear to auscultation bilaterally Cardio: Jugular venous distension: no JVD Rate: regular rate Rhythm: regular rhythm Heart sounds: S1 normal heart sound present, S2 normal heart sound present and Murmur heart sound present Peripheral pulses: Peripheral pulses 2+ throughout GI: Inspection: normal to inspection Auscultation: normal bowel sounds Urinary Catheter: Urinary Catheter: patent and draining and urine dark Skin: General skin exam: normal color and no rashes or lesions noted Lesions: no lesions Rashes: no rashes Trauma: no lacerations or abrasions Wounds: no wounds Hair: normal Nails: normal Neuro: General: oriented to person, oriented to place, moves all extremities, Normal light touch and pain sensation, CN's II-XI intact bilaterally and confusion Cranial nerves: Yes CN's II-XII intact bilaterally, Yes Intact sense of smell present, Yes Equal, round and reactive pupils present, Yes Bilaterally intact EOM present, Yes facial symmetry and Yes Midline tongue present Cognition (Neuro): normal cognition Speech: normal speech Gait exam (Neuro): Normal gait present Extrem: General: normal to inspection, full ROM and capillary refill normal Right upper extremity: normal to inspection, full ROM and normal capillary refill Left upper extremity: normal to inspection, full ROM and normal capillary refill Right lower extremity: normal to inspection, full ROM and normal capillary refill Left lower extremity: normal to inspection, full ROM and normal capillary refill Psych: Appearance:
[2021-11-17] MEDS: MORPHINE SULFATE (*CRX) 2 MG/ML INJ 1 MG IV PUSH (10:07)
--- NOTE | 2021-11-17 10:55 | PC.NURSE ---
Called [facility] to check on transfer waiting list, pt currently off waiting list, [facility] is awaiting imaging recorder to approve transfer. Pt refusing MRI here, states claustrophobic, need to have open MRI, pt states had one done about a week ago at [facility]. Consent to release recorder from [facility] to [place] has been sign by pt and faxed. Awaiting reply from [facility] to approve transfer.
[2021-11-17 13:43] VITALS: BP 119/86; PULSE 68; RESP 19; TEMP 37.5; O2SAT 95
[2021-11-17] MEDS: ENOXAPARIN 40 MG/0.4 ML SYRINGE SUB-Q (17:05)
[2021-11-17] MEDS: DONEPEZIL HCL 10 MG TABLET PO (20:06)
[2021-11-17 20:43] VITALS: O2SAT 97
[2021-11-17 21:51] VITALS: BP 110/51; PULSE 76; RESP 18; TEMP 36.7; O2SAT 94
[2021-11-18] MEDS: BETHANECHOL CHLORIDE 25 MG TABLET PO ×2 (05:27→17:19)
[2021-11-18 05:28] VITALS: BP 100/50; PULSE 62; RESP 17; TEMP 36.6; O2SAT 96
[2021-11-18] MEDS: SODIUM CHLORIDE 0.9% IV 1,000 ML 100 ML IV CONT ×2 (05:28→20:07)
[2021-11-18 05:46] LABS: Hematocrit 24.4 % (42.0-52.0); Mean Corpuscular HGB Conc 32.8 g/dl (32-36); Mean Corpuscular Hemoglobin 30.4 pg (26-34); Mean Corpuscular Volume 92.8 fl (80-100); Mean Platelet Volume 10.7 fl (7.4-10.4); Platelet Count Result 157 k/mm3 (150-375); Red Blood Count 2.63 M/mm3 (4.6-6.20); Red Cell Distribution Width 14.1 % (11.5-14.5); White Blood Count 18.8 K/mm3 (4.5-10.0)
[2021-11-18 05:56] LABS: Anion Gap 5 mmol/L (8-16); Blood Urea Nitrogen 17 mg/dL (9-20); Calcium 9.3 mg/dL (8.4-10.2); Carbon Dioxide 21 mmol/L (22-30); Chloride 107 mmol/L (98-107); Estimated CRCL calculation 47 ml/min; Estimated Glomerular Filt Rate > 60; Glucose 99 mg/dL (65-110); Potassium 3.4 mmol/L (3.4-5.0); Sodium 133 mmol/L (137-145)
[2021-11-18 08:25] VITALS: O2SAT 97
[2021-11-18] MEDS: DOCUSATE SODIUM 100 MG CAPSULE PO (09:10)
[2021-11-18] MEDS: SERTRALINE HCL 50 MG TABLET PO (09:10)
[2021-11-18] MEDS: FAMOTIDINE 20 MG TABLET 40 MG PO (09:10)
[2021-11-18] MEDS: levETIRAcetam 500 MG TABLET PO ×2 (09:10→20:02)
[2021-11-18] MEDS: FINASTERIDE 5 MG TABLET PO (09:10)
[2021-11-18] MEDS: MEMANTINE 10 MG TABLET PO ×2 (09:10→20:03)
--- NOTE | 2021-11-18 09:45 | PM.IMPN ---
Progress Note: A&P Assessment and Plan (1) Diverticulitis: Code(s): K57.92 - Diverticulitis of intestine, part unspecified, without perforation or abscess without bleeding Status: Acute Assessment and Plan: Abd CT Shows uncomplicated diverticulitis patient still have abdominal pain will repeat CT scan today as patient still have significant tenderness still have elevated leukocytosis Associated with sepsis present on admission Continue IV Zosyn IV fluids at 100ml/hr Trend labs Diet pending repeat CT scan (2) Kidney stone on left side: Code(s): N20.0 - Calculus of kidney Status: Acute Assessment and Plan: Patient has history of cystoscopy and bilateral stent placement and exchange by urology as outpatient recently urologist was reconsulted no plan for intervention follow-up as outpatient (3) Dementia: Code(s): F03.90 - Unspecified dementia without behavioral disturbance Status: Acute Assessment and Plan: Continue home donepezil and memantine Trend mood Seems stable at this point (4) BPH (benign prostatic hyperplasia): Code(s): N40.0 - Benign prostatic hyperplasia without lower urinary tract symptoms Status: Acute Assessment and Plan: Continue home finasteride Trend urine output Urology outpatient Urinary catheter in place (5) Seizure: Code(s): R56.9 - Unspecified convulsions Status: Acute Assessment and Plan: Does not seem to be a problem at this point Continue home keppra 500mg PO BID PT/OT Subjective Date/time seen: 11/18/21 09:45 Interval history: 86 years old male with past medical history of seizure kidney stone status post bilateral stent placement and exchange White catheter in the past presented twice in few days 1st time patient came in with syncopal episode was found to have orthostatic hypotension 2nd time patient came to the hospital with left lower quadrant abdominal pain was found to have acute diverticulitis treated with antibiotic urology was consulted as patient has hematuria and stone no plan for intervention per Urology as patient already has stent Patient feels better today Patient denies fever headache chest pain shortness of breath I am seeing the patient for diverticulitis Exam Narrative: Alert Chest no wheeze crackles Abdomen nontender no rebound no guarding CVS S1 + S2 Lower extremity edema Objective Data Vital Signs Vital Signs: Vital Signs - 24 hr 11/17/21 13:43 11/17/21 20:43 11/17/21 21:51 Temperature 99.5 F 98.1 F Pulse Rate 68 76 Respiratory Rate 19 18 Blood Pressure 119/86 110/51 L Pulse Oximetry 95 97 94 11/18/21 05:28 11/18/21 08:25 Temperature 97.9 F Pulse Rate 62 Respiratory Rate 17 Blood Pressure 100/50 L Pulse Oximetry 96 97 Intake/Output Intake/Output: Intake & Output 11/15/21 11/16/21 11/17/21 11/18/21 23:59 23:59 23:59 23:59 Intake Total 2770 2300 1050 Output Total 1125 1550 200 Balance 1645 750 850 Meds/Results Medications: Active Medications Generic Name Dose Route Start Last Admin Trade Name Freq PRN Reason Stop Dose Admin Hydrocodone Bitart/Acetaminophen 1 tab 11/16/21 13:07 11/17/21 07:54 Hydrocodone/Acetaminophen (*Crx) 5-325 Mg Tablet PO 1 tab Q6H PRN Administration Pain Rated 4-6 Bethanechol Chloride 25 mg 11/16/21 16:30 11/18/21 05:27 Bethanechol Chloride 25 Mg Tablet PO 25 mg BIDAC LINDA Administration Docusate Sodium 100 mg 11/16/21 21:00 11/18/21 09:10 Docusate Sodium 100 Mg Capsule PO 100 mg Q12HR LINDA Administration Donepezil HCl 10 mg 11/16/21 21:00 11/17/21 20:06 Donepezil Hcl 10 Mg Tablet PO 10 mg HS LINDA Administration Enoxaparin Sodium 40 mg 11/16/21 18:00 11/17/21 17:05 Enoxaparin 40 Mg/0.4 Ml Syringe SUB-Q 40 mg DAILY@1800 LINDA Administration Famotidine 40 mg 11/17/21 09:00 11/18/21
[2021-11-18] MEDS: HYDROcodone/acetaminophen (*CRX) 5-325 MG TABLET 1 TAB PO (10:18)
[2021-11-18] MEDS: HEPARIN SOD/D5W 100 UNITS/ML 25,000 UNITS/250 ML BAG 15 UNITS IV CONT (12:43)
[2021-11-18] MEDS: HEPARIN SODIUM 5,000 UNITS/ML VIAL 6500 UNITS IV PUSH (12:47)
[2021-11-18 13:15] LABS: Hematocrit 26.6 % (42.0-52.0); Hemoglobin 8.5 g/dL (14.0-18.0); Mean Corpuscular Hemoglobin 30.7 pg (26-34); Mean Platelet Volume 10.3 fl (7.4-10.4); Platelet Count Result 161 k/mm3 (150-375); Red Blood Count 2.77 M/mm3 (4.6-6.20); Red Cell Distribution Width 14.2 % (11.5-14.5)
[2021-11-18 14:00] VITALS: BP 96/61; PULSE 71; RESP 16; TEMP 36.4; O2SAT 97
[2021-11-18 14:27] LABS: Band Neutrophils Percent 16 % (0-6); Eosinophils Absolute Manual 0.17 K/mm3 (0.02-0.5); Eosinophils Percent Manual 1 % (0-4); Lymphocytes Absolute Manual 0.68 K/mm3 (1.1-4.5); Monocytes Absolute Manual 0.51 K/mm3 (0.1-0.90); Monocytes Percent Manual 3 % (3-9); Neutrophils Absolute Manual 15.64 K/mm3 (1.3-6.7); Neutrophils Percent Manual 76 % (46-73); Platelet Estimate Adequate (Adequate); Total Cells Counted 100
[2021-11-18 14:28] LABS: INR 1.8; Prothrombin Time 20.6 Seconds (11.1-14.7)
[2021-11-18 14:48] LABS: Partial Thromboplastin Time > 200.0 SECONDS (22.3-36.8)
[2021-11-18] MEDS: DONEPEZIL HCL 10 MG TABLET PO (20:03)
[2021-11-18 21:50] VITALS: BP 111/60; PULSE 72; RESP 18; TEMP 36.4; O2SAT 97
[2021-11-18 21:57] LABS: Partial Thromboplastin Time 98.4 SECONDS (22.3-36.8)
[2021-11-18] MEDS: HEPARIN SOD/D5W 100 UNITS/ML 25,000 UNITS/250 ML BAG 13 UNITS IV CONT (22:36)
[2021-11-19] VITALS (7 sets, daily range): BP systolic 93–131; BP diastolic 53–80; PULSE 50–63; RESP 16–18; TEMP 36.3–36.7; O2SAT 96–100
[2021-11-19 04:49] LABS: Basophils Percent Auto 0.3 % (0.2-1.2); Eosinophils Absolute Auto 0.4 K/mm3 (0-0.3); Eosinophils Percent Auto 3.2 % (0-4.4); Hematocrit 24.1 % (42.0-52.0); Hemoglobin 7.6 g/dL (14.0-18.0); Immature Granulocyte Absolute 0.11 K/mm3 (0.00-0.031); Lymphocytes Absolute Auto 0.98 K/mm3 (0.9-3.2); Lymphocytes Percent Auto 8.7 % (18.3-44.2); Mean Corpuscular HGB Conc 31.5 g/dl (32-36); Mean Corpuscular Hemoglobin 30.2 pg (26-34); Mean Corpuscular Volume 95.6 fl (80-100); Mean Platelet Volume 10.5 fl (7.4-10.4); Monocytes Absolute Auto 0.8 K/mm3 (0.1-0.6); Neutrophils Percent Auto 79.8 % (45.5-73.1); Platelet Count Result 156 k/mm3 (150-375); Red Blood Count 2.52 M/mm3 (4.6-6.20); Red Cell Distribution Width 14.2 % (11.5-14.5); White Blood Count 11.2 K/mm3 (4.5-10.0)
[2021-11-19 04:52] LABS: Partial Thromboplastin Time 38.8 SECONDS (22.3-36.8)
[2021-11-19 04:53] LABS: Estimated CRCL calculation 47 ml/min; Estimated Glomerular Filt Rate > 60
[2021-11-19] MEDS: BETHANECHOL CHLORIDE 25 MG TABLET PO ×2 (05:25→18:04)
[2021-11-19] MEDS: SODIUM CHLORIDE 0.9% IV 1,000 ML 100 ML IV CONT (05:25)
--- NOTE | 2021-11-19 09:31 | PM.IMPN ---
Progress Note: A&P Assessment and Plan (1) Diverticulitis: Code(s): K57.92 - Diverticulitis of intestine, part unspecified, without perforation or abscess without bleeding Status: Acute Assessment and Plan: Abd CT Shows uncomplicated diverticulitis patient still have abdominal pain will repeat CT scan today as patient still have significant tenderness still have elevated leukocytosis Associated with sepsis present on admission Continue IV Zosyn IV fluids at 125ml/hr Trend labs Diet pending repeat CT scan Repeat CT scan showed 1. Stable proximal sigmoid diverticulitis. Worsened rectosigmoid colitis. 2. Right lower lobe pulmonary emboli. 3. Mild right hydronephrosis and hydroureter with internal ureteral stent in expected position. Small stones in the distal left ureter and bladder. Left-sided hydroureter with internal ureteral stent in expected positio (2) Kidney stone on left side: Code(s): N20.0 - Calculus of kidney Status: Acute Assessment and Plan: Patient has history of cystoscopy and bilateral stent placement and exchange by urology as outpatient recently urologist was reconsulted no plan for intervention follow-up as outpatient Associated with hematuria has recurrence during hospitalization start heparin without bolus Discussed with Urology as long as the patient does not have severe hematuria with blood clots or worsening hemoglobin okay to continue heparin drip Hematuria resolved this morning will restart heparin drip (3) Dementia: Code(s): F03.90 - Unspecified dementia without behavioral disturbance Status: Acute Assessment and Plan: Continue home donepezil and memantine Trend mood Seems stable at this point (4) BPH (benign prostatic hyperplasia): Code(s): N40.0 - Benign prostatic hyperplasia without lower urinary tract symptoms Status: Acute Assessment and Plan: Continue home finasteride Trend urine output Urology outpatient Urinary catheter in place (5) Seizure: Code(s): R56.9 - Unspecified convulsions Status: Acute Assessment and Plan: Does not seem to be a problem at this point Continue home keppra 500mg PO BID PT/OT (6) Acute UTI: Code(s): N39.0 - Urinary tract infection, site not specified Status: Acute Assessment and Plan: Present on admission secondary to VRE I added IV Zyvox probably patient will need 7-14 days treatment can be switched to oral in 2 days monitor CBC (7) Pulmonary embolism: Code(s): I26.99 - Other pulmonary embolism without acute cor pulmonale Status: Acute Assessment and Plan: Started heparin drip complicated with hematuria Continue heparin drip monitor for now If patient need IVC filter probably will need transfer to facility with IVC filter capable (8) Anemia: Code(s): D64.9 - Anemia, unspecified Status: Acute Assessment and Plan: Acute worsening of chronic anemia probably anemia of chronic disease associated with acute blood loss anemia secondary to hematuria Transfuse 1 unit of blood as patient is hypotensive goal of hemoglobin of 8 Subjective Date/time seen: 11/19/21 09:31 Interval history: 86 years old male with past medical history of seizure kidney stone status post bilateral stent placement and exchange White catheter in the past presented twice in few days 1st time patient came in with syncopal episode was found to have orthostatic hypotension 2nd time patient came to the hospital with left lower quadrant abdominal pain was found to have acute diverticulitis treated with antibiotic urology was consulted as patient has hematuria and stone no plan for intervention per Urology as patient already has stent Repeat CT scan was done on 11/18/2021 of showed pulmonary embolism kidney cyst diverticulitis colitis Patient was started on heparin drip had gross hematuria recurren
[2021-11-19] MEDS: FAMOTIDINE 20 MG TABLET 40 MG PO (11:06)
[2021-11-19] MEDS: levETIRAcetam 500 MG TABLET PO ×2 (11:07→20:39)
[2021-11-19] MEDS: MEMANTINE 10 MG TABLET PO ×2 (11:07→20:39)
[2021-11-19] MEDS: FINASTERIDE 5 MG TABLET PO (11:07)
[2021-11-19] MEDS: SODIUM CHLORIDE 0.9% IV 500 ML IV CONT (11:07)
[2021-11-19] MEDS: ACETAMINOPHEN 325 MG TABLET 650 MG PO (12:20)
[2021-11-19] MEDS: SODIUM CHLORIDE 0.9% IV 250 ML 30 ML IV CONT (12:20)
[2021-11-19 12:28] LABS: Hematocrit 26.1 % (42.0-52.0); Hemoglobin 8.3 g/dL (14.0-18.0)
[2021-11-19] MEDS: SODIUM CHLORIDE 0.9% IV 1,000 ML 125 ML IV CONT (17:15)
[2021-11-19 17:16] LABS: Partial Thromboplastin Time 33.1 SECONDS (22.3-36.8)
--- NOTE | 2021-11-19 17:31 | WPDGICN ---
Assessment and Plan Assessment and plan (1) Diverticulitis: Code(s): K57.92 - Diverticulitis of intestine, part unspecified, without perforation or abscess without bleeding Status: Acute Assessment and Plan: on iv antibiotics, reviewed CT scan, uncomplicated continue to monitor (2) LLQ pain: Code(s): R10.32 - Left lower quadrant pain Status: Acute Assessment and Plan: from diverticulitis, medical treatment (3) Pulmonary embolism: Code(s): I26.99 - Other pulmonary embolism without acute cor pulmonale Status: Acute Assessment and Plan: new finding, on anticoagulation (4) Dementia: Code(s): F03.90 - Unspecified dementia without behavioral disturbance Status: Acute (5) History of renal stent: Status: Acute Assessment and Plan: evaluated again by urology (6) Bilateral ureteral calculi: Code(s): N20.1 - Calculus of ureter Status: Acute (7) Syncope: Code(s): R55 - Syncope and collapse Status: Acute GI Consult Note Consult date/time: 11/19/21 17:31 Reason for consult: LLQ pain, diverticulitis HPI: Krishna Saldana is a 86 year old male with past medical history of seizure, dementia on medication, kidney stone status post bilateral stent placement and exchange White catheter and previous hospitalization last month with bacteremia who is here after pain in LLQ that was severe and cause syncopal episode (patient is not best historian). He was found to have diverticulitis by CT scan and started on antibiotics, also evaluated by urology but no plans to put new stents. He still has persistent pain and primary ordered new CT scan that showed stable sigmoid diverticulitis. Worsened rectosigmoid colitis, right lower lobe pulmonary emboli, mild right hydronephrosis and hydroureter with internal ureteral stent in expected position. He is on antibiotics, started on heparin drip. He seems comfortable but still with pain in llq. Review of Systems Constitutional: Constitutional: Denies difficulty sleeping Eyes: Eyes: Reports no additional eye complaints ENT: Reports system reviewed and no additional complaints, except as documented Cardiovascular: Cardiovascular: Denies chest pain Respiratory: Respiratory: Denies hemoptysis Gastrointestinal: Gastrointestinal: Reports abdominal pain Genitourinary: Genitourinary: Reports hematuria Musculoskeletal: Musculoskeletal: Denies arthralgias Integumentary/Breasts: Skin/Breast: Denies dry skin Neurologic: Denies headache(s) Comments: syncope Psychiatric: Comments: h/o dementia ON LICENSE OF [facility] Past Medical History Medical History (Updated 11/19/21 @ 17:38 by Qamar Flores MD) Arthritis B12 deficiency Bilateral sensorineural hearing loss Dementia Hypertension Hypotension Kidney stones LLQ pain Meningioma Seizures (1999) Admitted with status epilepticus in October 2014. Last seizure in 2016. Syncope Transient ischemic attack (1974) Surgical History Surgical History History of appendectomy (1962) History of arthroscopy of right shoulder History of cystoscopy History of inguinal hernia repair (1965) Family History Family History Sibling Melanoma Father Congestive heart failure Social History Social History Social History: Surrogate decision maker: Annette Shana who is his Code status: Do not resuscitate. Daughter in law is a Integration Software Developer in [place], [place]. Roughly one year ago patient and his sold their home in [place] and moved to [facility]. Last week, they moved into an apartment instead of the [facility]. They have two children a daughter that lives in [place] and a son that lives in [place]. Smoking status: Never smoker Second hand tobacco smoke exposure: No Alcohol intake: n
[2021-11-19] MEDS: HEPARIN SOD/D5W 100 UNITS/ML 25,000 UNITS/250 ML BAG 13 UNITS IV CONT (17:42)
--- NOTE | 2021-11-19 17:47 | PC.NURSE ---
Verified with EMANI Brown Heparin infusion was stopped 11/19/2021 at 0015 due to hematuria.
--- NOTE | 2021-11-19 17:49 | PC.NURSE ---
per Stephanie JOAQUIN, blood noted in fajardo catheter overnight and called to Kathy Guerrero. she states orders received to stop heparin drip and drip was stopped at 0015. During morning rounds, I discussed blood in urine and stopped heparin drip with Dr. Vincent. He talked with urology and stated that it would be ok to resume heparin drip after blood complete as long as no clotting is noted in fajardo catheter. Heparin drip restarted at 13 ml/hr at 1745. No clots noted in urine at this time.
[2021-11-19] MEDS: LINEZOLID 600 MG/300 ML 600 MG/300 ML SOLN 300 MG IVPB (20:39)
[2021-11-19] MEDS: DONEPEZIL HCL 10 MG TABLET PO (20:39)
[2021-11-20 00:44] LABS: Partial Thromboplastin Time 48.7 SECONDS (22.3-36.8)
[2021-11-20] MEDS: HEPARIN SOD/D5W 100 UNITS/ML 25,000 UNITS/250 ML BAG 16 UNITS IV CONT ×2 (00:59→08:51)
[2021-11-20] MEDS: HEPARIN SODIUM 5,000 UNITS/ML VIAL 4000 UNITS IV PUSH (01:00)
[2021-11-20] MEDS: SODIUM CHLORIDE 0.9% IV 1,000 ML 125 ML IV CONT ×2 (03:23→14:27)
[2021-11-20] MEDS: BETHANECHOL CHLORIDE 25 MG TABLET PO ×2 (05:26→17:13)
[2021-11-20 06:00] VITALS: BP 105/51; PULSE 48; RESP 18; TEMP 36.2; O2SAT 99
[2021-11-20] MEDS: FINASTERIDE 5 MG TABLET PO (08:50)
[2021-11-20] MEDS: FAMOTIDINE 20 MG TABLET 40 MG PO (08:50)
[2021-11-20] MEDS: MEMANTINE 10 MG TABLET PO ×2 (08:50→21:58)
[2021-11-20] MEDS: levETIRAcetam 500 MG TABLET PO ×2 (08:50→22:00)
[2021-11-20] MEDS: LINEZOLID 600 MG/300 ML 600 MG/300 ML SOLN 300 MG IVPB ×2 (08:51→22:04)
[2021-11-20 10:16] LABS: Partial Thromboplastin Time > 200.0 SECONDS (22.3-36.8)
[2021-11-20 12:05] VITALS: O2SAT 97
--- NOTE | 2021-11-20 12:51 | WPDUROPN2 ---
Progress Note: A&P Assessment and Plan (1) BPH (benign prostatic hyperplasia): Code(s): N40.0 - Benign prostatic hyperplasia without lower urinary tract symptoms Status: Acute (2) Acute UTI: Code(s): N39.0 - Urinary tract infection, site not specified Status: Acute Assessment and Plan: Urine culture grew VRE, but he is currently on culture sensitive Linezolid. Continue Linezolid. Contributing to blood in the urine. (3) Hydronephrosis with urinary obstruction due to ureteral calculus: Code(s): N13.2 - Hydronephrosis with renal and ureteral calculous obstruction Status: Acute Assessment and Plan: Resolved via ureteroscopy on 11/12/21. (4) Bilateral ureteral calculi: Code(s): N20.1 - Calculus of ureter Status: Acute Assessment and Plan: Not of concern at this time. Will follow as an outpatient. (5) History of renal stent: Status: Acute Assessment and Plan: He will keep stents in until his f/u with DR. Nguyễn on 11/24/21. If he is hospitalized, we could arrange removal of his stents while in house. (6) Gross hematuria: Code(s): R31.0 - Gross hematuria Status: Acute Assessment and Plan: Secondary to UTI, bilateral stents and use of Heparin. Irrigate bladder q 6 hours to prevent clot formation. If unable to keep urine clear, may consider starting a 3 way fajardo and CBI. I expect his urine to be bloody d/t the stents in addition to his infection and use of Heparin. This will be tough to manage as Heparin is necessary d/t treatment for his PE. Will continue to monitor. Subjective Subjective Date/Time Seen: 11/20/21 12:51 Patient is s/p Cystoscopy, bilateral stent placement, bilateral stone removal and retrograde pyelogram. He was placed on a Heparin drip d/t a newly diagnosed PE. Unfortunately his urine has become grossly bloody. I spoke with the hospitalist yesterday who wanted to let us know that he also had VRE growing on his urine culture but was being treated with culture appropriate antibiotics and that his urine had become grossly bloody since starting the Heparin. The catheter is draining well. Review of Systems Cardiovascular: Cardiovascular: Denies chest pain Respiratory: Respiratory: Reports no additional respiratory complaints Gastrointestinal: Gastrointestinal: Denies abdominal pain Genitourinary: Genitourinary: Reports hematuria Exam Narrative: I didn't physically examine the patient as he was simultaneously getting PT. Urinary Catheter: Urinary Catheter: patent and draining and urine red Objective Data Vital Signs Vital Signs: Vital Signs - 24 hr 11/19/21 13:33 11/19/21 14:34 11/19/21 21:59 Temperature 97.7 F 98.0 F 97.6 F Pulse Rate 50 L 53 L 55 L Respiratory Rate 16 16 18 Blood Pressure 114/64 131/72 101/56 L Pulse Oximetry 100 99 98 11/20/21 06:00 Temperature 97.2 F L Pulse Rate 48 L Respiratory Rate 18 Blood Pressure 105/51 L Pulse Oximetry 99 Intake/Output Intake/Output: Intake & Output 11/17/21 11/18/21 11/19/21 11/20/21 23:59 23:59 23:59 23:59 Intake Total 2300 2450 3696 2210 Output Total 1550 850 500 200 Balance 750 1600 3196 2009 Meds/Results Medications: Active Medications Generic Name Dose Route Start Last Admin Trade Name Freq PRN Reason Stop Dose Admin Hydrocodone Bitart/Acetaminophen 1 tab 11/16/21 13:07 11/18/21 10:18 Hydrocodone/Acetaminophen (*Crx) 5-325 Mg Tablet PO 1 tab Q6H PRN Administration Pain Rated 4-6 Bethanechol Chloride 25 mg 11/16/21 16:30 11/20/21 05:26 Bethanechol Chloride 25 Mg Tablet PO 25 mg BIDAC LINDA Administration Docusate Sodium 100 mg 11/16/21 21:00 11/20/21 08:51 Docusate Sodium 100 Mg Capsule PO Not Given Q12HR LINDA Donepezil HCl 10 mg 11/16/21 21:00 11/19/21 20:39 Donepezil Hcl 10 Mg Tablet PO 10 mg HS LINDA Administration Famotidine 40 mg 11/17/21 09:00 11/20/21 08:50 Fam
[2021-11-20 12:58] LABS: Hematocrit 30.7 % (42.0-52.0); Hemoglobin 10.1 g/dL (14.0-18.0)
[2021-11-20 14:00] VITALS: BP 107/54; PULSE 82; RESP 18; TEMP 36.2; O2SAT 100
--- NOTE | 2021-11-20 15:24 | WPDGIPROGNO ---
Progress Note: A&P Assessment and Plan (1) Diverticulitis: Code(s): K57.92 - Diverticulitis of intestine, part unspecified, without perforation or abscess without bleeding Status: Acute Assessment and Plan: stable diverticulitis, on iv antibiotics pain better (2) LLQ pain: Code(s): R10.32 - Left lower quadrant pain Status: Acute (3) Pulmonary embolism: Code(s): I26.99 - Other pulmonary embolism without acute cor pulmonale Status: Acute Assessment and Plan: on heparin gtt (4) Gross hematuria: Code(s): R31.0 - Gross hematuria Status: Acute Assessment and Plan: had stents, uti and also from heparin gtt urology on board (5) Acute UTI: Code(s): N39.0 - Urinary tract infection, site not specified Status: Acute Assessment and Plan: on treatment (6) Bilateral ureteral calculi: Code(s): N20.1 - Calculus of ureter Status: Acute (7) DVT (deep venous thrombosis): Code(s): I82.409 - Acute embolism and thrombosis of unspecified deep veins of unspecified lower extremity Status: Acute Subjective Date/time seen: 11/20/21 15:25 Interval history: no new events, some pain in llq but overall better. Review of Systems Review of Systems: All systems reviewed & are unremarkable except as noted in HPI and below Exam Const: General: comfortable and no acute distress HENMT: General nose exam: Normal nares present Eyes: General: appearance normal, both eyes and all related structures Neck: Neck: no JVD Resp: Auscultation: clear to auscultation bilaterally Cardio: Rate: regular rate Rhythm: regular rhythm GI: Inspection: non-distended GI Palp: Yes Soft to palpation and Yes Tenderness to palpation present (GI) (llq, no rebound) Auscultation: normal bowel sounds Urinary Catheter: Urinary Catheter: patent and draining Skin: General skin exam: normal color Neuro: Speech: normal speech Extrem: General: normal to inspection Other: awake and alert x3 but poor historian Psych: Mental Status: mental status grossly normal Objective Data Vital Signs Vital Signs: Vital Signs - 24 hr 11/19/21 21:59 11/20/21 06:00 11/20/21 14:00 Temperature 97.6 F 97.2 F L 97.1 F L Pulse Rate 55 L 48 L 82 Respiratory Rate 18 18 18 Blood Pressure 101/56 L 105/51 L 107/54 L Pulse Oximetry 98 99 100 Intake/Output Intake/Output: Intake & Output 11/17/21 11/18/21 11/19/21 11/20/21 23:59 23:59 23:59 23:59 Intake Total 2300 2450 3696 3210 Output Total 1550 850 500 200 Balance 750 1600 3196 3010 Meds/Results Medications: Active Medications Generic Name Dose Route Start Last Admin Trade Name Freq PRN Reason Stop Dose Admin Hydrocodone Bitart/Acetaminophen 1 tab 11/16/21 13:07 11/18/21 10:18 Hydrocodone/Acetaminophen (*Crx) 5-325 Mg Tablet PO 1 tab Q6H PRN Administration Pain Rated 4-6 Bethanechol Chloride 25 mg 11/16/21 16:30 11/20/21 05:26 Bethanechol Chloride 25 Mg Tablet PO 25 mg BIDAC LINDA Administration Docusate Sodium 100 mg 11/16/21 21:00 11/20/21 08:51 Docusate Sodium 100 Mg Capsule PO Not Given Q12HR LINDA Donepezil HCl 10 mg 11/16/21 21:00 11/19/21 20:39 Donepezil Hcl 10 Mg Tablet PO 10 mg HS LINDA Administration Famotidine 40 mg 11/17/21 09:00 11/20/21 08:50 Famotidine 20 Mg Tablet PO 40 mg QAM LINDA Administration Finasteride 5 mg 11/17/21 09:00 11/20/21 08:50 Finasteride 5 Mg Tablet PO 5 mg QAM LINDA Administration Heparin Sodium (Porcine) 3,500 units 11/18/21 11:53 Heparin Sodium 5,000 Units/Ml Vial IV PUSH PRN PRN aPTT 55 - 70 seconds Heparin Sodium (Porcine) 4,000 units 11/19/21 08:32 11/20/21 01:00 Heparin Sodium 5,000 Units/Ml Vial IV PUSH 4,000 units PRN PRN Administration aPTT less than 55 seconds Sodium Chloride 1,000 mls @ 125 mls/hr 11/16/21 10:25 11/20/21 14:27 Normal Saline Iv
--- NOTE | 2021-11-20 17:01 | PM.IMPN ---
Progress Note: A&P Assessment and Plan (1) Diverticulitis: Code(s): K57.92 - Diverticulitis of intestine, part unspecified, without perforation or abscess without bleeding Status: Acute Assessment and Plan: Abd CT Shows uncomplicated diverticulitis patient still have abdominal pain will repeat CT scan today as patient still have significant tenderness still have elevated leukocytosis Associated with sepsis present on admission Continue IV Zosyn IV fluids at 125ml/hr Trend labs Diet pending repeat CT scan Repeat CT scan showed 1. Stable proximal sigmoid diverticulitis. Worsened rectosigmoid colitis. 2. Right lower lobe pulmonary emboli. 3. Mild right hydronephrosis and hydroureter with internal ureteral stent in expected position. Small stones in the distal left ureter and bladder. Left-sided hydroureter with internal ureteral stent in expected positio 11/20/2021 interval history: 86-year-old male with sigmoid diverticulitis with treated with Zosyn patient continue to complain of abdominal pain, patient has pulmonary emboli being treated with heparin has developed hematuria and VRE being treated with Zyvox, today I spoke with the patient's [id number] Dr. Quiana Watts, who recommended pallative care and I spoke with patient and his who is present in the room, both and have agree for hospice care but continue present treatments, will continue present management,will increase pain medication and to keep the patient more comfortable. his nurse is present in the room Ms. Dutton. (2) Kidney stone on left side: Code(s): N20.0 - Calculus of kidney Status: Acute Assessment and Plan: Patient has history of cystoscopy and bilateral stent placement and exchange by urology as outpatient recently urologist was reconsulted no plan for intervention follow-up as outpatient Associated with hematuria has recurrence during hospitalization start heparin without bolus Discussed with Urology as long as the patient does not have severe hematuria with blood clots or worsening hemoglobin okay to continue heparin drip Hematuria resolved this morning will restart heparin drip (3) Dementia: Code(s): F03.90 - Unspecified dementia without behavioral disturbance Status: Acute Assessment and Plan: Continue home donepezil and memantine Trend mood Seems stable at this point (4) BPH (benign prostatic hyperplasia): Code(s): N40.0 - Benign prostatic hyperplasia without lower urinary tract symptoms Status: Acute Assessment and Plan: Continue home finasteride Trend urine output Urology outpatient Urinary catheter in place (5) Seizure: Code(s): R56.9 - Unspecified convulsions Status: Acute Assessment and Plan: Does not seem to be a problem at this point Continue home keppra 500mg PO BID PT/OT (6) Acute UTI: Code(s): N39.0 - Urinary tract infection, site not specified Status: Acute Assessment and Plan: Present on admission secondary to VRE I added IV Zyvox probably patient will need 7-14 days treatment can be switched to oral in 2 days monitor CBC (7) Pulmonary embolism: Code(s): I26.99 - Other pulmonary embolism without acute cor pulmonale Status: Acute Assessment and Plan: Started heparin drip complicated with hematuria Continue heparin drip monitor for now If patient need IVC filter probably will need transfer to facility with IVC filter capable (8) Anemia: Code(s): D64.9 - Anemia, unspecified Status: Acute Assessment and Plan: Acute worsening of chronic anemia probably anemia of chronic disease associated with acute blood loss anemia secondary to hematuria Transfuse 1 unit of blood as patient is hypotensive goal of hemoglobin of 8 Subjective Date/time seen: 11/20/21 17:01 11/20/2021 interval history: 86-year-old male with sigmoid
[2021-11-20 17:55] LABS: Partial Thromboplastin Time 195.3 SECONDS (22.3-36.8)
[2021-11-20 19:46] LABS: Partial Thromboplastin Time 97.1 SECONDS (22.3-36.8)
[2021-11-20 20:00] VITALS: PULSE 73; RESP 18; O2SAT 98
[2021-11-20] MEDS: DONEPEZIL HCL 10 MG TABLET PO (21:58)
[2021-11-20 22:00] VITALS: BP 111/61; PULSE 73; RESP 18; TEMP 36.2; O2SAT 98
[2021-11-20] MEDS: DOCUSATE SODIUM 100 MG CAPSULE PO (22:01)
[2021-11-21 02:48] LABS: Partial Thromboplastin Time 120.6 SECONDS (22.3-36.8)
[2021-11-21] MEDS: BETHANECHOL CHLORIDE 25 MG TABLET PO ×2 (05:52→16:48)
[2021-11-21 06:00] VITALS: BP 112/64; PULSE 55; RESP 18; TEMP 36.5; O2SAT 98
[2021-11-21 08:00] VITALS: PULSE 55; RESP 18; O2SAT 98
[2021-11-21] MEDS: HEPARIN SOD/D5W 100 UNITS/ML 25,000 UNITS/250 ML BAG 14 UNITS IV CONT (08:18)
[2021-11-21] MEDS: SODIUM CHLORIDE 0.9% IV 1,000 ML 125 ML IV CONT (08:27)
[2021-11-21] MEDS: MEMANTINE 10 MG TABLET PO ×2 (10:14→20:54)
[2021-11-21] MEDS: DOCUSATE SODIUM 100 MG CAPSULE PO ×2 (10:14→20:54)
[2021-11-21] MEDS: FAMOTIDINE 20 MG TABLET 40 MG PO (10:14)
[2021-11-21] MEDS: levETIRAcetam 500 MG TABLET PO ×2 (10:14→20:54)
[2021-11-21] MEDS: FINASTERIDE 5 MG TABLET PO (10:14)
[2021-11-21] MEDS: LINEZOLID 600 MG/300 ML 600 MG/300 ML SOLN 300 MG IVPB (10:15)
[2021-11-21] MEDS: LIDOCAINE 5% PATCH 2 PATCH TRANSDERM (10:15)
[2021-11-21 11:34] LABS: Vancomycin Trough < 5.0 ug/mL (10.0-20.0)
--- NOTE | 2021-11-21 12:34 | WPDGIPROGNO ---
Progress Note: A&P Assessment and Plan (1) Diverticulitis: Code(s): K57.92 - Diverticulitis of intestine, part unspecified, without perforation or abscess without bleeding Status: Acute Assessment and Plan: stable diverticulitis, on iv antibiotics pain better will advance diet will sign off, call if questions (2) LLQ pain: Code(s): R10.32 - Left lower quadrant pain Status: Acute Assessment and Plan: improved (3) Pulmonary embolism: Code(s): I26.99 - Other pulmonary embolism without acute cor pulmonale Status: Acute Assessment and Plan: on heparin gtt (4) Gross hematuria: Code(s): R31.0 - Gross hematuria Status: Acute Assessment and Plan: had stents, uti and also from heparin gtt urology on board (5) Acute UTI: Code(s): N39.0 - Urinary tract infection, site not specified Status: Acute Assessment and Plan: on treatment (6) Bilateral ureteral calculi: Code(s): N20.1 - Calculus of ureter Status: Acute (7) DVT (deep venous thrombosis): Code(s): I82.409 - Acute embolism and thrombosis of unspecified deep veins of unspecified lower extremity Status: Acute Subjective Date/time seen: 11/21/21 12:34 Interval history: resting comfortable in bed, denies pain Review of Systems Review of Systems: All systems reviewed & are unremarkable except as noted in HPI and below Exam Const: General: comfortable and no acute distress Other: elderly frail, resting in bed HENMT: General nose exam: Normal nares present Eyes: General: appearance normal, both eyes and all related structures Neck: Neck: no JVD Resp: Auscultation: clear to auscultation bilaterally Cardio: Rate: regular rate Rhythm: regular rhythm GI: Inspection: non-distended GI Palp: Yes Soft to palpation and Yes Tenderness to palpation present (GI) (less tender in llq, no rebound) Auscultation: normal bowel sounds Urinary Catheter: Urinary Catheter: patent and draining Skin: General skin exam: normal color Neuro: Speech: normal speech Extrem: General: normal to inspection Other: awake and alert x3 but poor historian Psych: Mental Status: mental status grossly normal Objective Data Vital Signs Vital Signs: Vital Signs - 24 hr 11/20/21 14:00 11/20/21 20:00 11/20/21 22:00 Temperature 97.1 F L 97.1 F L Pulse Rate 82 73 73 Respiratory Rate 18 18 18 Blood Pressure 107/54 L 111/61 Pulse Oximetry 100 98 98 11/21/21 06:00 11/21/21 08:00 Temperature 97.7 F Pulse Rate 55 L 55 L Respiratory Rate 18 18 Blood Pressure 112/64 Pulse Oximetry 98 98 Intake/Output Intake/Output: Intake & Output 11/18/21 11/19/21 11/20/21 11/21/21 23:59 23:59 23:59 23:59 Intake Total 2450 3696 4710 300 Output Total 850 500 800 900 Balance 1600 3196 3910 -600 Meds/Results Medications: Active Medications Generic Name Dose Route Start Last Admin Trade Name Freq PRN Reason Stop Dose Admin Hydrocodone Bitart/Acetaminophen 1 tab 11/16/21 13:07 11/18/21 10:18 Hydrocodone/Acetaminophen (*Crx) 5-325 Mg Tablet PO 1 tab Q6H PRN Administration Pain Rated 4-6 Bethanechol Chloride 25 mg 11/16/21 16:30 11/21/21 05:52 Bethanechol Chloride 25 Mg Tablet PO 25 mg BIDAC LINDA Administration Docusate Sodium 100 mg 11/16/21 21:00 11/21/21 10:14 Docusate Sodium 100 Mg Capsule PO 100 mg Q12HR LINDA Administration Donepezil HCl 10 mg 11/16/21 21:00 11/20/21 21:58 Donepezil Hcl 10 Mg Tablet PO 10 mg HS LINDA Administration Famotidine 40 mg 11/17/21 09:00 11/21/21 10:14 Famotidine 20 Mg Tablet PO 40 mg QAM LINDA Administration Finasteride 5 mg 11/17/21 09:00 11/21/21 10:14 Finasteride 5 Mg Tablet PO 5 mg QAM LINDA Administration Heparin Sodium (Porcine) 3,500 units 11/18/21 11:53 Heparin Sodium 5,000 Units/Ml Vial IV PUSH PRN PRN aPTT 55 - 70 seconds Heparin Sodi
[2021-11-21 14:00] VITALS: BP 118/67; PULSE 52; RESP 14; TEMP 36.1; O2SAT 100
--- NOTE | 2021-11-21 15:12 | P.PNIM_ITS ---
Progress Note: A&P Assessment and Plan (1) Diverticulitis: Code(s): K57.92 - Diverticulitis of intestine, part unspecified, without perforation or abscess without bleeding Status: Acute Assessment and Plan: * Abd CT Shows uncomplicated diverticulitis patient still have abdominal pain will repeat CT scan today as patient still have significant tenderness still have elevated leukocytosis * Associated with sepsis present on admission * Continue IV Zosyn * IV fluids at 125ml/hr * Trend labs * Diet pending repeat CT scan * Repeat CT scan showed 1. Stable proximal sigmoid diverticulitis. Worsened rectosigmoid colitis. 2. Right lower lobe pulmonary emboli. 3. Mild right hydronephrosis and hydroureter with internal ureteral stent in expected position. Small stones in the distal left ureter and bladder. Left-sided hydroureter with internal ureteral stent in expected positio 11/20/2021 interval history: 86-year-old male with sigmoid diverticulitis with treated with Zosyn patient continue to complain of abdominal pain, patient has pulmonary emboli being treated with heparin has developed hematuria and VRE being treated with Zyvox, today I spoke with the patient's uufusuvf-wo-lpu Dr. Quiana Watts, who recommended pallative care and I spoke with patient and his who is present in the room, both and have agree for hospice care but continue present treatments, will continue present management,will increase pain medication and to keep the patient more comfortable. his nurse is present in the room Ms. Dutton. 11/21/2021 interval history: 86-year-old male with sigmoid diverticulitis with treated with Zosyn patient continue to complain of abdominal pain, patient has pulmonary emboli being treated with heparin has developed hematuria and VRE being treated with Zyvox, on 11/20 I spoke with the patient's zqdwuchu-qi-kvk Dr. Quiana Watts, who recommended pallative care and I spoke with patient and his who is present in the room, both and have agree for hospice care but continue present treatments, will continue present management,will increase pain medication and to keep the patient more comfortable. discussed w [facility] direct care staffer will further communicate with the family and possibly hospice recommendation (2) Kidney stone on left side: Code(s): N20.0 - Calculus of kidney Status: Acute Assessment and Plan: * Patient has history of cystoscopy and bilateral stent placement and exchange by urology as outpatient recently urologist was reconsulted no plan for intervention follow-up as outpatient * Associated with hematuria has recurrence during hospitalization start heparin without bolus * Discussed with Urology as long as the patient does not have severe hematuria with blood clots or worsening hemoglobin okay to continue heparin drip * Hematuria resolved this morning will restart heparin drip (3) Dementia: Code(s): F03.90 - Unspecified dementia without behavioral disturbance Status: Acute Assessment and Plan: * Continue home donepezil and memantine * Trend mood * Seems stable at this point (4) BPH (benign prostatic hyperplasia): Code(s): N40.0 - Benign prostatic hyperplasia without lower urinary tract symptoms Status: Acute Assessment and Plan: * Continue home finasteride * Trend urine output * Urology outpatient * Urinary catheter in place (5) Seizure: Code(s): R56.9 - Unspecified convulsions Status: Acute Assessment and Plan: * Does not seem to be a
--- NOTE | 2021-11-21 15:12 | PM.IMPN ---
Progress Note: A&P Assessment and Plan (1) Diverticulitis: Code(s): K57.92 - Diverticulitis of intestine, part unspecified, without perforation or abscess without bleeding Status: Acute Assessment and Plan: Abd CT Shows uncomplicated diverticulitis patient still have abdominal pain will repeat CT scan today as patient still have significant tenderness still have elevated leukocytosis Associated with sepsis present on admission Continue IV Zosyn IV fluids at 125ml/hr Trend labs Diet pending repeat CT scan Repeat CT scan showed 1. Stable proximal sigmoid diverticulitis. Worsened rectosigmoid colitis. 2. Right lower lobe pulmonary emboli. 3. Mild right hydronephrosis and hydroureter with internal ureteral stent in expected position. Small stones in the distal left ureter and bladder. Left-sided hydroureter with internal ureteral stent in expected positio 11/20/2021 interval history: 86-year-old male with sigmoid diverticulitis with treated with Zosyn patient continue to complain of abdominal pain, patient has pulmonary emboli being treated with heparin has developed hematuria and VRE being treated with Zyvox, today I spoke with the patient's fkomirzr-io-xtp Dr. Quiana Watts, who recommended pallative care and I spoke with patient and his who is present in the room, both and have agree for hospice care but continue present treatments, will continue present management,will increase pain medication and to keep the patient more comfortable. his nurse is present in the room Ms. Dutton. 11/21/2021 interval history: 86-year-old male with sigmoid diverticulitis with treated with Zosyn patient continue to complain of abdominal pain, patient has pulmonary emboli being treated with heparin has developed hematuria and VRE being treated with Zyvox, on 11/20 I spoke with the patient's nvmumtoe-jy-vxf Dr. Quiana Watts, who recommended pallative care and I spoke with patient and his who is present in the room, both and have agree for hospice care but continue present treatments, will continue present management,will increase pain medication and to keep the patient more comfortable. discussed with health care coach will further communicate with the family and possibly hospice recommendation (2) Kidney stone on left side: Code(s): N20.0 - Calculus of kidney Status: Acute Assessment and Plan: Patient has history of cystoscopy and bilateral stent placement and exchange by urology as outpatient recently urologist was reconsulted no plan for intervention follow-up as outpatient Associated with hematuria has recurrence during hospitalization start heparin without bolus Discussed with Urology as long as the patient does not have severe hematuria with blood clots or worsening hemoglobin okay to continue heparin drip Hematuria resolved this morning will restart heparin drip (3) Dementia: Code(s): F03.90 - Unspecified dementia without behavioral disturbance Status: Acute Assessment and Plan: Continue home donepezil and memantine Trend mood Seems stable at this point (4) BPH (benign prostatic hyperplasia): Code(s): N40.0 - Benign prostatic hyperplasia without lower urinary tract symptoms Status: Acute Assessment and Plan: Continue home finasteride Trend urine output Urology outpatient Urinary catheter in place (5) Seizure: Code(s): R56.9 - Unspecified convulsions Status: Acute Assessment and Plan: Does not seem to be a problem at this point Continue home keppra 500mg PO BID PT/OT (6) Acute UTI: Code(s): N39.0 - Urinary tract infection, site not specified Status: Acute Assessment and Plan: Present on admission secondary to VRE I added IV Zyvox probably patient will need 7-14 days treatment can be switched to oral in 2 days monitor CBC (7) Pulmonary embolism: Cod
[2021-11-21 16:04] LABS: Hematocrit 30.2 % (42.0-52.0); Hemoglobin 10.1 g/dL (14.0-18.0); Mean Corpuscular HGB Conc 33.4 g/dl (32-36); Mean Corpuscular Volume 89.6 fl (80-100); Mean Platelet Volume 10.3 fl (7.4-10.4); Platelet Count Result 179 k/mm3 (150-375); Red Blood Count 3.37 M/mm3 (4.6-6.20); Red Cell Distribution Width 14.6 % (11.5-14.5); White Blood Count 7.3 K/mm3 (4.5-10.0)
[2021-11-21 16:17] LABS: Anion Gap 7 mmol/L (8-16); Blood Urea Nitrogen 9 mg/dL (9-20); Calcium 8.6 mg/dL (8.4-10.2); Carbon Dioxide 17 mmol/L (22-30); Chloride 111 mmol/L (98-107); Estimated CRCL calculation 57 ml/min; Estimated Glomerular Filt Rate > 60; Glucose 166 mg/dL (65-110); Magnesium 1.8 mg/dL (1.6-2.3); Potassium 2.1 mmol/L (3.4-5.0); Sodium 135 mmol/L (137-145)
[2021-11-21 16:44] LABS: Partial Thromboplastin Time 100.9 SECONDS (22.3-36.8)
[2021-11-21] MEDS: POTASSIUM CHLORIDE 20 MEQ PACKET (FOR LIQUID) 40 MEQ PO (16:47)
[2021-11-21] MEDS: POTASSIUM CHLORIDE INJ 40 MEQ in SODIUM CHLORIDE 0.9% IV 500 ML 130 MEQ IVPB (16:48)
[2021-11-21 20:35] VITALS: PULSE 50; RESP 16; O2SAT 98
[2021-11-21] MEDS: DONEPEZIL HCL 10 MG TABLET PO (20:56)
[2021-11-21 22:00] VITALS: BP 122/64; PULSE 50; RESP 16; TEMP 36.2; O2SAT 98
[2021-11-22] VITALS (8 sets, daily range): BP systolic 121–131; BP diastolic 61–69; PULSE 47–63; RESP 12–16; TEMP 35.9–36.4; O2SAT 97–100
[2021-11-22] MEDS: LINEZOLID 600 MG/300 ML 600 MG/300 ML SOLN 300 MG IVPB ×3 (00:14→20:00)
[2021-11-22] MEDS: HEPARIN SOD/D5W 100 UNITS/ML 25,000 UNITS/250 ML BAG 12 UNITS IV CONT (00:51)
[2021-11-22 06:07] LABS: Hematocrit 31.3 % (42.0-52.0); Mean Corpuscular HGB Conc 31.9 g/dl (32-36); Mean Corpuscular Hemoglobin 29.5 pg (26-34); Mean Corpuscular Volume 92.3 fl (80-100); Mean Platelet Volume 10.4 fl (7.4-10.4); Platelet Count Result 193 k/mm3 (150-375); Red Blood Count 3.39 M/mm3 (4.6-6.20); Red Cell Distribution Width 14.6 % (11.5-14.5); White Blood Count 9.1 K/mm3 (4.5-10.0)
[2021-11-22] MEDS: BETHANECHOL CHLORIDE 25 MG TABLET PO ×2 (06:09→17:04)
[2021-11-22 06:28] LABS: Anion Gap 4 mmol/L (8-16); Blood Urea Nitrogen 7 mg/dL (9-20); Calcium 8.7 mg/dL (8.4-10.2); Carbon Dioxide 18 mmol/L (22-30); Chloride 114 mmol/L (98-107); Estimated CRCL calculation 57 ml/min; Estimated Glomerular Filt Rate > 60; Glucose 103 mg/dL (65-110); Magnesium 1.7 mg/dL (1.6-2.3); Potassium 2.7 mmol/L (3.4-5.0); Sodium 136 mmol/L (137-145)
[2021-11-22] MEDS: MAGNESIUM SULF 2 GM/WATER 50ML 2 GM/50 ML BAG IVPB (07:43)
[2021-11-22] MEDS: POTASSIUM CHLORIDE 20 MEQ TABLET 40 MEQ PO (09:22)
[2021-11-22] MEDS: POTASSIUM CHLORIDE INJ 40 MEQ in SODIUM CHLORIDE 0.9% IV 500 ML 130 MEQ IVPB (09:22)
[2021-11-22] MEDS: HYDROcodone/acetaminophen (*CRX) 5-325 MG TABLET 1 TAB PO (09:25)
[2021-11-22] MEDS: LIDOCAINE 5% PATCH 2 PATCH TRANSDERM (09:26)
[2021-11-22] MEDS: DOCUSATE SODIUM 100 MG CAPSULE PO ×2 (09:26→20:24)
[2021-11-22] MEDS: MEMANTINE 10 MG TABLET PO ×2 (09:27→20:23)
[2021-11-22] MEDS: levETIRAcetam 500 MG TABLET PO ×2 (09:27→20:24)
[2021-11-22] MEDS: FAMOTIDINE 20 MG TABLET 40 MG PO (09:28)
[2021-11-22] MEDS: FINASTERIDE 5 MG TABLET PO (09:28)
[2021-11-22] MEDS: APIXABAN 5 MG TABLET 10 MG PO ×2 (11:20→20:24)
[2021-11-22 12:35] LABS: Hematocrit 32.5 % (42.0-52.0)
--- NOTE | 2021-11-22 12:54 | PM.IMPN ---
Progress Note: A&P Assessment and Plan (1) Diverticulitis: Code(s): K57.92 - Diverticulitis of intestine, part unspecified, without perforation or abscess without bleeding Status: Acute Assessment and Plan: Abd CT Shows uncomplicated diverticulitis patient still have abdominal pain will repeat CT scan today as patient still have significant tenderness still have elevated leukocytosis Associated with sepsis present on admission Continue IV Zosyn IV fluids at 125ml/hr Trend labs Diet pending repeat CT scan Repeat CT scan showed 1. Stable proximal sigmoid diverticulitis. Worsened rectosigmoid colitis. 2. Right lower lobe pulmonary emboli. 3. Mild right hydronephrosis and hydroureter with internal ureteral stent in expected position. Small stones in the distal left ureter and bladder. Left-sided hydroureter with internal ureteral stent in expected positio 11/20/2021 interval history: 86-year-old male with sigmoid diverticulitis with treated with Zosyn patient continue to complain of abdominal pain, patient has pulmonary emboli being treated with heparin has developed hematuria and VRE being treated with Zyvox, today I spoke with the patient's oldsfqgz-ny-vmq Dr. Quiana Watts, who recommended pallative care and I spoke with patient and his who is present in the room, both and have agree for hospice care but continue present treatments, will continue present management,will increase pain medication and to keep the patient more comfortable. his nurse is present in the room Ms. Dutton. 11/21/2021 interval history: 86-year-old male with sigmoid diverticulitis with treated with Zosyn patient continue to complain of abdominal pain, patient has pulmonary emboli being treated with heparin has developed hematuria and VRE being treated with Zyvox, on 11/20 I spoke with the patient's jnqjumzq-yj-bof Dr. Quiana Watts, who recommended pallative care and I spoke with patient and his who is present in the room, both and have agree for hospice care but continue present treatments, will continue present management,will increase pain medication and to keep the patient more comfortable. discussed with ocular care aide will further communicate with the family and possibly hospice recommendation 11/22/2021 interval history: 86-year-old male with sigmoid diverticulitis with treated with Zosyn patient continue to complain of abdominal pain, patient has pulmonary emboli being treated with heparin has developed hematuria today will stop heparin and start patient on Eliquis, and AUGUSTO being treated with Zyvox, on 11/20 I spoke with the patient's aycvozil-bt-ckc Dr. Quiana Watts, who recommended pallative care and I spoke with patient and his who is present in the room, both and have agreed for hospice care but continue present treatments, will continue present management,will increase pain medication and to keep the patient more comfortable. discussed with ocular care aide will further communicate with the family and possibly hospice recommendation, patient has hypokalemia and hypomagnesium, will monitor and supplement. (2) Kidney stone on left side: Code(s): N20.0 - Calculus of kidney Status: Acute Assessment and Plan: Patient has history of cystoscopy and bilateral stent placement and exchange by urology as outpatient recently urologist was reconsulted no plan for intervention follow-up as outpatient Associated with hematuria has recurrence during hospitalization start heparin without bolus Discussed with Urology as long as the patient does not have severe hematuria with blood clots or worsening hemoglobin okay to continue heparin drip Hematuria resolved this morning will restart heparin drip (3) Dementia: Code(s): F03.90 - Unspecified dementia without behavioral disturbance Status: Acute Assessment and Plan: Continue home donepezil and memantine Trend mood Seems
[2021-11-22 15:58] LABS: Partial Thromboplastin Time 39.2 SECONDS (22.3-36.8)
[2021-11-22 15:59] LABS: Anion Gap 4 mmol/L (8-16); Blood Urea Nitrogen 7 mg/dL (9-20); Calcium 8.5 mg/dL (8.4-10.2); Carbon Dioxide 18 mmol/L (22-30); Chloride 114 mmol/L (98-107); Estimated CRCL calculation 51 ml/min; Estimated Glomerular Filt Rate > 60; Glucose 144 mg/dL (65-110); Magnesium 2.2 mg/dL (1.6-2.3); Potassium 3.2 mmol/L (3.4-5.0); Sodium 136 mmol/L (137-145)
[2021-11-22] MEDS: DONEPEZIL HCL 10 MG TABLET PO (20:24)
[2021-11-22] MEDS: SODIUM CHLORIDE 0.9% IV 1,000 ML 125 ML IV CONT (23:54)
[2021-11-23] VITALS (8 sets, daily range): BP systolic 125–146; BP diastolic 75–81; PULSE 54–110; RESP 16–18; TEMP 36.2–36.4; O2SAT 96–100
[2021-11-23] MEDS: BETHANECHOL CHLORIDE 25 MG TABLET PO ×2 (05:47→15:45)
[2021-11-23 06:47] LABS: Hematocrit 31.2 % (42.0-52.0); Hemoglobin 10.2 g/dL (14.0-18.0); Mean Corpuscular HGB Conc 32.7 g/dl (32-36); Mean Corpuscular Hemoglobin 29.6 pg (26-34); Mean Corpuscular Volume 90.4 fl (80-100); Mean Platelet Volume 10.2 fl (7.4-10.4); Platelet Count Result 196 k/mm3 (150-375); Red Blood Count 3.45 M/mm3 (4.6-6.20); Red Cell Distribution Width 14.7 % (11.5-14.5); White Blood Count 8.4 K/mm3 (4.5-10.0)
[2021-11-23 06:55] LABS: Anion Gap 3 mmol/L (8-16); Blood Urea Nitrogen 5 mg/dL (9-20); Calcium 8.7 mg/dL (8.4-10.2); Carbon Dioxide 23 mmol/L (22-30); Chloride 111 mmol/L (98-107); Estimated CRCL calculation 57 ml/min; Estimated Glomerular Filt Rate > 60; Glucose 102 mg/dL (65-110); Magnesium 2.1 mg/dL (1.6-2.3); Potassium 3.3 mmol/L (3.4-5.0); Sodium 137 mmol/L (137-145)
[2021-11-23] MEDS: DOCUSATE SODIUM 100 MG CAPSULE PO ×2 (09:01→21:03)
[2021-11-23] MEDS: SODIUM CHLORIDE 0.9% IV 1,000 ML 125 ML IV CONT (09:02)
[2021-11-23] MEDS: LIDOCAINE 5% PATCH 2 PATCH TRANSDERM (09:03)
[2021-11-23] MEDS: FINASTERIDE 5 MG TABLET PO (09:04)
[2021-11-23] MEDS: MEMANTINE 10 MG TABLET PO ×2 (09:04→21:04)
[2021-11-23] MEDS: levETIRAcetam 500 MG TABLET PO ×2 (09:04→21:06)
[2021-11-23] MEDS: APIXABAN 5 MG TABLET 10 MG PO ×2 (09:04→21:03)
[2021-11-23] MEDS: FAMOTIDINE 20 MG TABLET 40 MG PO (09:05)
[2021-11-23] MEDS: LINEZOLID 600 MG/300 ML 600 MG/300 ML SOLN 300 MG IVPB ×2 (09:59→21:00)
[2021-11-23 12:11] LABS: Hematocrit 32.3 % (42.0-52.0); Hemoglobin 10.4 g/dL (14.0-18.0)
--- NOTE | 2021-11-23 16:02 | PM.IMPN ---
Progress Note: A&P Assessment and Plan (1) Diverticulitis: Code(s): K57.92 - Diverticulitis of intestine, part unspecified, without perforation or abscess without bleeding Status: Acute Assessment and Plan: Abd CT Shows uncomplicated diverticulitis patient still have abdominal pain will repeat CT scan today as patient still have significant tenderness still have elevated leukocytosis Associated with sepsis present on admission Continue IV Zosyn IV fluids at 125ml/hr Trend labs Diet pending repeat CT scan Repeat CT scan showed 1. Stable proximal sigmoid diverticulitis. Worsened rectosigmoid colitis. 2. Right lower lobe pulmonary emboli. 3. Mild right hydronephrosis and hydroureter with internal ureteral stent in expected position. Small stones in the distal left ureter and bladder. Left-sided hydroureter with internal ureteral stent in expected positio 11/20/2021 interval history: 86-year-old male with sigmoid diverticulitis with treated with Zosyn patient continue to complain of abdominal pain, patient has pulmonary emboli being treated with heparin has developed hematuria and VRE being treated with Zyvox, today I spoke with the patient's qpaecvfz-zv-lbk Dr. Quiana Watts, who recommended pallative care and I spoke with patient and his who is present in the room, both and have agree for hospice care but continue present treatments, will continue present management,will increase pain medication and to keep the patient more comfortable. his nurse is present in the room Ms. Dutton. 11/21/2021 interval history: 86-year-old male with sigmoid diverticulitis with treated with Zosyn patient continue to complain of abdominal pain, patient has pulmonary emboli being treated with heparin has developed hematuria and VRE being treated with Zyvox, on 11/20 I spoke with the patient's eexcqqgc-uo-min Dr. Quiana Watts, who recommended pallative care and I spoke with patient and his who is present in the room, both and have agree for hospice care but continue present treatments, will continue present management,will increase pain medication and to keep the patient more comfortable. discussed with career and technology education teacher will further communicate with the family and possibly hospice recommendation 11/22/2021 interval history: 86-year-old male with sigmoid diverticulitis with treated with Zosyn patient continue to complain of abdominal pain, patient has pulmonary emboli being treated with heparin has developed hematuria today will stop heparin and start patient on Eliquis, and AUGUSTO being treated with Zyvox, on 11/20 I spoke with the patient's odwelupm-tw-iuq Dr. Quiana Watts, who recommended pallative care and I spoke with patient and his who is present in the room, both and have agreed for hospice care but continue present treatments, will continue present management,will increase pain medication and to keep the patient more comfortable. discussed with career and technology education teacher will further communicate with the family and possibly hospice recommendation, patient has hypokalemia and hypomagnesium, will monitor and supplement. 11/23/2021 interval history: today patient remains clinically stable is sitting in the chair, complain of back pain because of his prolonged sitting in the chair will have nursing staff lay him in the bed, today patient family has decided to consult hospice will continue to monitor and further recommendation to follow (2) Kidney stone on left side: Code(s): N20.0 - Calculus of kidney Status: Acute Assessment and Plan: Patient has history of cystoscopy and bilateral stent placement and exchange by urology as outpatient recently urologist was reconsulted no plan for intervention follow-up as outpatient Associated with hematuria has recurrence during hospitalization start heparin without bolus Discussed with Urology as long as the patient does not have severe hematuria with blood clots
[2021-11-23] MEDS: DONEPEZIL HCL 10 MG TABLET PO (21:03)
[2021-11-24] VITALS: PULSE 54
[2021-11-24 04:00] VITALS: PULSE 64
[2021-11-24] MEDS: SODIUM CHLORIDE 0.9% IV 1,000 ML 125 ML IV CONT (05:13)
[2021-11-24] MEDS: BETHANECHOL CHLORIDE 25 MG TABLET PO (05:15)
[2021-11-24 05:35] VITALS: BP 136/75; PULSE 61; RESP 18; TEMP 36.6; O2SAT 95
[2021-11-24 06:17] LABS: Hematocrit 34.6 % (42.0-52.0); Hemoglobin 11.1 g/dL (14.0-18.0); Mean Corpuscular HGB Conc 32.1 g/dl (32-36); Mean Corpuscular Hemoglobin 29.5 pg (26-34); Mean Platelet Volume 10.1 fl (7.4-10.4); Platelet Count Result 207 k/mm3 (150-375); Red Blood Count 3.76 M/mm3 (4.6-6.20); Red Cell Distribution Width 14.7 % (11.5-14.5); White Blood Count 8.2 K/mm3 (4.5-10.0)
[2021-11-24 06:27] LABS: Anion Gap 4 mmol/L (8-16); Blood Urea Nitrogen 5 mg/dL (9-20); Carbon Dioxide 23 mmol/L (22-30); Chloride 109 mmol/L (98-107); Estimated CRCL calculation 57 ml/min; Estimated Glomerular Filt Rate > 60; Glucose 99 mg/dL (65-110); Potassium 2.9 mmol/L (3.4-5.0); Sodium 136 mmol/L (137-145)
[2021-11-24] MEDS: FAMOTIDINE 20 MG TABLET 40 MG PO (08:11)
[2021-11-24] MEDS: APIXABAN 5 MG TABLET 10 MG PO (08:11)
[2021-11-24] MEDS: FINASTERIDE 5 MG TABLET PO (08:12)
[2021-11-24] MEDS: LINEZOLID 600 MG/300 ML 600 MG/300 ML SOLN 300 MG IVPB (08:12)
[2021-11-24] MEDS: DOCUSATE SODIUM 100 MG CAPSULE PO (08:12)
[2021-11-24] MEDS: MEMANTINE 10 MG TABLET PO (08:12)
[2021-11-24] MEDS: LIDOCAINE 5% PATCH 2 PATCH TRANSDERM (08:13)
[2021-11-24 08:20] VITALS: PULSE 51
[2021-11-24] MEDS: POTASSIUM CHLORIDE 20 MEQ TABLET 40 MEQ PO (08:35)
[2021-11-24] MEDS: levETIRAcetam 500 MG TABLET PO (08:35)
--- NOTE | 2021-11-24 11:25 | PM.DS ---
DS: Admitting Diagnosis Discharge Date 11/24/2021 Admitting Diagnosis Abdominal pain DS: Discharge Diagnosis Discharge Diagnosis (1) Diverticulitis: Code(s): K57.92 - Diverticulitis of intestine, part unspecified, without perforation or abscess without bleeding Status: Acute Assessment and Plan: Abd CT Shows uncomplicated diverticulitis patient still have abdominal pain will repeat CT scan today as patient still have significant tenderness still have elevated leukocytosis Associated with sepsis present on admission Continue IV Zosyn IV fluids at 125ml/hr Trend labs Diet pending repeat CT scan Repeat CT scan showed 1. Stable proximal sigmoid diverticulitis. Worsened rectosigmoid colitis. 2. Right lower lobe pulmonary emboli. 3. Mild right hydronephrosis and hydroureter with internal ureteral stent in expected position. Small stones in the distal left ureter and bladder. Left-sided hydroureter with internal ureteral stent in expected positio 11/20/2021 interval history: 86-year-old male with sigmoid diverticulitis with treated with Zosyn patient continue to complain of abdominal pain, patient has pulmonary emboli being treated with heparin has developed hematuria and VRE being treated with Zyvox, today I spoke with the patient's xtrxmsqr-kg-gqq Dr. Quiana Watts, who recommended pallative care and I spoke with patient and his who is present in the room, both and have agree for hospice care but continue present treatments, will continue present management,will increase pain medication and to keep the patient more comfortable. his nurse is present in the room Ms. Dutton. 11/21/2021 interval history: 86-year-old male with sigmoid diverticulitis with treated with Zosyn patient continue to complain of abdominal pain, patient has pulmonary emboli being treated with heparin has developed hematuria and VRE being treated with Zyvox, on 11/20 I spoke with the patient's pidlcwyv-fc-ftx Dr. Quiana Watts, who recommended pallative care and I spoke with patient and his who is present in the room, both and have agree for hospice care but continue present treatments, will continue present management,will increase pain medication and to keep the patient more comfortable. discussed with date night caregiver will further communicate with the family and possibly hospice recommendation 11/22/2021 interval history: 86-year-old male with sigmoid diverticulitis with treated with Zosyn patient continue to complain of abdominal pain, patient has pulmonary emboli being treated with heparin has developed hematuria today will stop heparin and start patient on Eliquis, and VRE being treated with Zyvox, on 11/20 I spoke with the patient's gqzhojls-hp-aqz Dr. Quiana Watts, who recommended pallative care and I spoke with patient and his who is present in the room, both and have agreed for hospice care but continue present treatments, will continue present management,will increase pain medication and to keep the patient more comfortable. discussed with date night caregiver will further communicate with the family and possibly hospice recommendation, patient has hypokalemia and hypomagnesium, will monitor and supplement. 11/23/2021 interval history: today patient remains clinically stable is sitting in the chair, complain of back pain because of his prolonged sitting in the chair will have nursing staff lay him in the bed, today patient family has decided to consult hospice will continue to monitor and further recommendation to follow (2) Kidney stone on left side: Code(s): N20.0 - Calculus of kidney Status: Acute Assessment and Plan: Patient has history of cystoscopy and bilateral stent placement and exchange by urology as outpatient recently urologist was reconsulted no plan for intervention follow-up as outpatient Associated with hematuria has recurrence during hospitalization start heparin without bolu
[2021-11-24 12:00] VITALS: PULSE 58
[2021-11-24 12:44] LABS: EDCOVIDSCREEN Negative (Negative)
== END 2021-11-24 13:50 | disposition hospice, home (50) | DRG 391 ==
LOC: ANHED 10:56 → ANH3MEDSUR 10:59
PROVIDERS: Chiropractor; Internal Medicine; Admitting Provider Internal Medicine; Emergency Provider Emergency Medicine; PCP Family Medicine; Visit Provider Family Medicine
DX: K57.92 Diverticulitis of intestine, part unspecified, without perforation or abscess without bleeding (principal); I26.99 Other pulmonary embolism without acute cor pulmonale; T83.518A Infection and inflammatory reaction due to other urinary catheter, initial encounter; N20.1 Calculus of ureter; N13.6 Pyonephrosis; I82.432 Acute embolism and thrombosis of left popliteal vein; I82.452 Acute embolism and thrombosis of left peroneal vein; D62 Acute posthemorrhagic anemia; Z51.5 Encounter for palliative care; N20.0 Calculus of kidney; Z20.822 Contact with and (suspected) exposure to COVID-19; F03.90 Unspecified dementia, unspecified severity, without behavioral disturbance, psychotic disturbance, mood disturbance, and anxiety; N40.0 Benign prostatic hyperplasia without lower urinary tract symptoms; R56.9 Unspecified convulsions; Z82.49 Family history of ischemic heart disease and other diseases of the circulatory system; Z86.73 Personal history of transient ischemic attack (TIA), and cerebral infarction without residual deficits; E53.8 Deficiency of other specified B group vitamins; I10 Essential (primary) hypertension; Z79.899 Other long term (current) drug therapy; R55 Syncope and collapse; R31.0 Gross hematuria; Z66 Do not resuscitate; Y84.6 Urinary catheterization as the cause of abnormal reaction of the patient, or of later complication, without mention of misadventure at the time of the procedure
CPT/HCPCS: 36415; 36430; 74177; 80048; 80053; 80202; 81001; 82565; 83605; 83690; 83735; 85014; 85018; 85025; 85027; 85610; 85730; 86850; 86900; 86901; 86920; 87040; 87077; 87086; 87088; 87186; 87426; 93970; 96365; 96367; 97110; 97161; 97165; 97530; 97535; 99285; A9270; C9803; G0378; J0131; J1644; J1650; J2020; J2270; J2543; J3475; J3480; J7030; J7040; J7050; P9016; Q9967

== ENCOUNTER 2022-03-01 07:53 | Emergency (ER) | payer OTHER, MEDICARE, SELFPAY ==
[2022-03-01] VITALS (27 sets, daily range): BP systolic 96–131; BP diastolic 66–87; PULSE 77–98; RESP 11–29; TEMP 36.5; O2SAT 95–100
--- NOTE | ~2022-03-01 | XR_ITS ---
EXAMINATION: XR chest 1V DATE: 03/01/2022 10:01 INDICATION: Fall with left shoulder pain TECHNIQUE: frontal view of the chest was obtained. COMPARISON: Chest radiograph dated 10/23/2021 FINDINGS: Small lung volumes. Calcified lymph node at the medial left lower lung zone consistent with old granu lomatous disease. No other airspace opacities, pulmonary edema, pleural effusion or pneumothorax. The cardiomediastinal silhouette is normal. Proximal loop of a right internal ureteral stent is seen in the right upper quadrant. Partially visualized reverse right total shoulder arthroplasty. Mild thorac olumbar levocurvature. IMPRESSION: 1. No acute cardiopulmonary disease. Reviewed, dictated and finalized at location A.
--- NOTE | ~2022-03-01 | XR_ITS ---
EXAMINATION: XR knee RT min 4V DATE: 03/01/2022 10:01 INDICATION: Right knee pain. Fall. TECHNIQUE: 4 views of right knee were obtained. COMPARISON: None. FINDINGS: Bone alignment is normal. No fracture. There is moderate osteoarthritis of medial and chou lofemoral compartments and mild osteoarthritis of lateral compartment. There is chondrocalcinosis of the menisci. There is a small knee joint effusion. There are dystrophic calcifications of the joint c apsule. IMPRESSION: 1. Moderate right knee osteoarthritis. 2. Small right knee joint effusion. Reviewed, dictated and finalized at location A.
--- NOTE | ~2022-03-01 | XR_ITS ---
EXAMINATION: XR knee LT min 4V DATE: 03/01/2022 10:01 INDICATION: Left knee pain. Fall. TECHNIQUE: 4 views of left knee were obtained. COMPARISON: None. FINDINGS: Bone alignment is normal. No fracture. There is moderate osteoarthritis of medial and chou lofemoral compartments and mild osteoarthritis of lateral compartment. There is chondrocalcinosis of the menisci. There is a small knee joint effusion. IMPRESSION: 1. Moderate left knee osteoarthritis. 2. Small left knee joint effusion. Reviewed, dictated and finalized at location A.
--- NOTE | ~2022-03-01 | XR_ITS ---
EXAMINATION: XR shoulder LT min 2V DATE: 03/01/2022 10:01 INDICATION: Left shoulder pain post fall TECHNIQUE: AP internally and externally rotated, AP oblique externally rotated and transscapular Y vi ews of the left shoulder were obtained. COMPARISON: None FINDINGS: There appears to be some cephalad subluxation of the humeral head with respect to the glenoid with na rrowing of the subacromial space suggestive of possible rotator cuff tear. No fracture. Moderate left acromioclavicular osteoarthritis. Mild to moderate left glenohumeral osteoarthritis. Small enthesoph ytes along the posterior facet of the greater tuberosity. There is a large portion of the left lung i s clear. Soft tissues are unremarkable. IMPRESSION: 1. Cephalad subluxation of the left humeral head suggestive of age-indeterminate rotator cuff tear. N o acute osseous abnormality. 2. Moderate left acromioclavicular and mild to moderate left glenohumeral osteoarthritis. Reviewed, dictated and finalized at location A. IMPRESSION: 1. Cephalad subluxation of the left humeral head suggestive of age-indeterminat e rotator cuff tear. No acute osseous abnormality. 2. Moderate left acromioclavicular and mild to moderate left glenohumeral osteo arthritis.
--- NOTE | ~2022-03-01 | CT_ITS ---
EXAMINATION: CT cervical spine wo con DATE: 03/01/2022 09:42 INDICATION: Neck injury. Back pain. Right arm pain. TECHNIQUE: Computed tomography (CT) of the cervical spine was performed without intravenous contrast. Automated exposure control and iterative reconstruction technique were employed. The dose-length pro duct was 508.86 mGy-cm. COMPARISON: CT cervical spine 03/26/2009 FINDINGS: There is kyphosis of cervical spine. Vertebral body heights are normal. There is mildly dec reased disc height at C2-C3, severely decreased disc height from C3-C4 through C6-C7, and moderately decreased disc height at C7-T1. There is interbody fusion at C5-C6. The following disc levels are spe cifically discussed: C2-C3: There is severe right and moderate left uncovertebral joint osteoarthritis. There is mild righ t and severe left facet joint osteoarthritis. There is mild left neural foraminal stenosis. There is mild central canal stenosis. C3-C4: There is severe right and moderate left uncovertebral joint osteoarthritis. There is severe bi lateral facet joint osteoarthritis. There is moderate right and mild left neural foraminal stenosis. There is mild central canal stenosis. C4-C5: There is severe bilateral uncovertebral joint osteoarthritis. There is severe bilateral facet joint osteoarthritis. There is mild bilateral neural foraminal stenosis. There is mild central canal stenosis. C5-C6: There is ankylosis of the uncovertebral joints with moderate hypertrophy. There is severe left facet joint osteoarthritis. There is ankylosis of the right facet joint with mild hypertrophy. There is mild bilateral neural foraminal stenosis. There is mild central canal stenosis. C6-C7: There is severe bilateral uncovertebral joint osteoarthritis. There is severe bilateral facet joint osteoarthritis. There is mild bilateral neural foraminal stenosis. There is mild central canal stenosis. C7-T1: There is no uncovertebral joint osteoarthritis. There is severe bilateral facet joint osteoart hritis. There is no neural foraminal stenosis. There is no central canal stenosis. IMPRESSION: 1. No fracture. 2. Severe cervical spondylosis. Reviewed, dictated and finalized at location A.
--- NOTE | ~2022-03-01 | CT_ITS ---
EXAMINATION: CT thoracic lumbar wo con DATE: 03/01/2022 09:43 INDICATION: Back pain. Fall. TECHNIQUE: Computed tomography (CT) of the thoracic and lumbar spine was performed without intravenou s contrast. Automated exposure control and iterative reconstruction technique were employed. The dose -length product was 2019.27 mGy-cm. COMPARISON: CT abdomen and pelvis 11/18/2021 FINDINGS: CT THORACIC SPINE: There is 13 degrees levoscoliosis of thoracolumbar spine. There is 2 mm anterolist hesis of T2 on T3. There is mild chronic anterior wedging of T7 vertebral body. There is mildly decre ased disc height at most levels. There is multilevel facet joint osteoarthritis, severe bilaterally a t T1-T2 and T2-T3 and on the right at T10-T11. On the right, there is mild neural foraminal stenosis at T1-T2, T2-T3, T8-T9, T9-T10, and T10-T11. On the left, there is mild neural foraminal stenosis at T1-T2 and T2-T3. No central canal stenosis. CT LUMBAR SPINE: Stool distends the rectosigmoid. The prostate is severely enlarged. There are bilate ral internal ureteral stents in expected position. There is bilateral hydronephrosis and hydroureter. There are small stones in left kidney. There is 18 degrees levoscoliosis of lumbar spine. There are chronic bilateral L5 pars defects. There is 4 mm retrolisthesis of L4 on L5 and 12 mm anterolisthesis of L5 on S1. Vertebral body heights are normal. There is moderately decreased disc height at L1-L2 a nd severely decreased disc height from L2-L3 through L5-S1. The following disc levels are specificall y discussed: L1-L2: The disc is bulging. There is severe right and mild left facet joint osteoarthritis. There is mild bilateral neural foraminal stenosis. There is mild central canal stenosis. L2-L3: The disc is bulging. There is mild bilateral facet joint osteoarthritis. There is mild right a nd moderate left neural foraminal stenosis. There is mild central canal stenosis. L3-L4: The disc is bulging. There is severe right and moderate left facet joint osteoarthritis. There is mild right and moderate left neural foraminal stenosis. There is moderate central canal stenosis. L4-L5: The disc is bulging. There is severe right and moderate left facet joint osteoarthritis. There is moderate right and mild left neural foraminal stenosis. There is mild central canal stenosis. L5-S1: The disc is bulging. There is severe bilateral facet joint osteoarthritis. There is moderate b ilateral neural foraminal stenosis. There is mild central canal stenosis. IMPRESSION: 1. No fracture. 2. Mild thoracic spondylosis and severe lumbar spondylosis. 3. Scoliosis. 4. Bilateral hydronephrosis and hydroureter with internal ureteral stents in expected positions. 5. Stool distends the rectosigmoid. Reviewed, dictated and finalized at location A. IMPRESSION: 1. No fracture. 2. Mild thoracic spondylosis and severe lumbar spondylosis. 3. Scoliosis. 4. Bilateral hydronephrosis and hydroureter with internal ureteral stents in ex pected positions. 5. Stool distends the rectosigmoid.
--- NOTE | ~2022-03-01 | XR_ITS ---
EXAMINATION: XR hip BI 2V w AP pelvis DATE: 03/01/2022 10:01 INDICATION: Hip pain. Fall. TECHNIQUE: An anteroposterior view of the pelvis and 2 views of each hip were obtained. COMPARISON: None. FINDINGS: There is lumbar dextroscoliosis and severe spondylosis. No fracture. There is mild osteoart hritis of the hips. Bilateral internal ureteral stents are noted. IMPRESSION: 1. Mild osteoarthritis of the hips. Reviewed, dictated and finalized at location A.
--- NOTE | ~2022-03-01 | CT_ITS ---
EXAMINATION: CT brain wo con DATE: 03/01/2022 09:42 INDICATION: Fall. TECHNIQUE: Computed tomography (CT) of the head was performed without intravenous contrast. The mA wa s adjusted according to patient size. Iterative reconstruction technique was employed. The dose-lengt h product was 605.33 mGy-cm. COMPARISON: Head CT 10/17/2021 FINDINGS: There is diffuse brain volume loss. There are scattered areas of low attenuation in the cer ebral white matter, which is within normal limits for the patient's age. There is no intracranial hem orrhage, acute infarction, or abnormal intracranial mass lesion. The ventricles are normal in size. T here is mucosal thickening in the paranasal sinuses. The mastoid air cells are normal. The orbits are normal. IMPRESSION: 1. Normal aging brain. Reviewed, dictated and finalized at location A. IMPRESSION: 1. Normal aging brain.
--- NOTE | 2022-03-01 09:13 | ED.FALL ---
HPI - Fall General Chief Complaint: Fall Stated Complaint: FALL Time Seen by Provider: 03/01/22 08:51 Source: patient and EMS Mode of arrival: EMS Limitations: dementia History of Present Illness HPI Narrative: This is an 86-year-old male that presents to the emergency department after an unwitnessed fall today at his nursing facility. Reportedly patient was found on the ground in his room. He is on a blood thinner so was sent for further evaluation. Patient reports left shoulder pain, back pain, and knee pain. He does not think that he hit his head. He denies any other focal areas of pain. Related Data Home Medications Medication Instructions Recorded Confirmed levetiracetam 500 mg tablet 500 mg PO BID 07/31/19 11/16/21 (Keppra) famotidine 40 mg tablet (Pepcid) 40 mg PO QAM 11/05/21 11/16/21 Allergies Allergy/AdvReac Type Severity Reaction Status Date / Time No Known Allergies Allergy Verified 11/16/21 09:01 Review of Systems Review of Systems: CONSTITUTIONAL: Denies fever CARDIOVASCULAR: Denies chest pain GASTROINTESTINAL: Denies abdominal pain, nausea, vomiting MUSCULOSKELETAL: Reports back pain, joint pain, and myalgia. NEUROLOGIC: Denies headache, numbness, or weakness. All systems reviewed & are unremarkable except as noted in HPI and below PMFSH Past Medical History Medical History (Updated 03/01/22 @ 13:33 by Yuliya Blas PA-C) Arthritis B12 deficiency Bilateral sensorineural hearing loss Dementia DVT (deep venous thrombosis) Hypertension Hypotension Kidney stones LLQ pain Meningioma Seizures (1999) Admitted with status epilepticus in October 2014. Last seizure in 2016. Syncope Transient ischemic attack (1974) Surgical History Surgical History History of appendectomy (1962) History of arthroscopy of right shoulder History of cystoscopy History of inguinal hernia repair (1965) Family History Family History Sibling Melanoma Father Congestive heart failure Social History Social History Social History: Surrogate decision maker: Annette Saldana who is his Code status: Do not resuscitate. Daughter in law is a Cardiac Cath Tech in [place], [place]. Roughly one year ago patient and his sold their home in [place] and moved to [facility]. Last week, they moved into an apartment instead of the [facility]. They have two children a daughter that lives in [place] and a son that lives in [place]. Smoking status: Never smoker Second hand tobacco smoke exposure: No Alcohol intake: never Drinks per week: 0 Substance use: never Substance use type: does not use Additional living arrangements comments: The patient lives with his in [facility]. 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 HEAD: Normocephalic, atraumatic. EYES: PERRLA and EOMI. ENT: Nares clear, no rhinorrhea or epistaxis. Mucous membranes moist. Oropharynx without tonsillar hypertrophy exudate or other lesions. Bilateral TMs pearly freedman non-bulging NECK: Supple. No adenopathy or masses. C collar in place CHEST: Clear to auscultation. No respiratory distress. No wheezes rales or rhonchi HEART: Regular rate and rhythm. No murmur heard. Normal peripheral pulses. ABDOMEN: Soft, nontender, nondistended, normal active bowel sounds. EXTREMITIES: Normal range of motion, except decreased active ROM in the left shoulder with mild edema noted. No other obvious deformity. SKIN: Warm, dry, no rash. NEURO: No focal deficits. Alert and orie
[2022-03-01 11:30] LABS: Add Urine Microscopic? YES; Appearance Urine Cloudy (Clear); Color Urine Red (Yellow)
[2022-03-01 11:42] LABS: Bacteria Urine 2+ /hpf; RBC Urine >75 /hpf (0-2); WBC Clumps Urine Present /HPF; WBC Urine >75 /hpf
[2022-03-01 11:47] LABS: Basophils Absolute Auto 0.1 K/mm3 (0.0-0.1); Basophils Percent Auto 0.6 % (0.2-1.2); Eosinophils Absolute Auto 0.1 K/mm3 (0-0.3); Eosinophils Percent Auto 0.6 % (0-4.4); Hemoglobin 7.4 g/dL (14.0-18.0); Immature Granulocyte Absolute 0.03 K/mm3 (0.00-0.031); Immature Granulocyte Percent A 0.3 % (0-0.5); Lymphocytes Absolute Auto 1.19 K/mm3 (0.9-3.2); Lymphocytes Percent Auto 13.6 % (18.3-44.2); Mean Corpuscular HGB Conc 30.8 g/dl (32-36); Mean Corpuscular Volume 97.2 fl (80-100); Mean Platelet Volume 9.3 fl (7.4-10.4); Monocytes Percent Auto 11.1 % (2.6-8.5); Neutrophils Absolute Auto 6.4 K/mm3 (1.3-6.7); Neutrophils Percent Auto 73.8 % (45.5-73.1); Platelet Count Result 255 k/mm3 (150-375); Red Blood Count 2.47 M/mm3 (4.6-6.20); Red Cell Distribution Width 16.1 % (11.5-14.5); White Blood Count 8.7 K/mm3 (4.5-10.0)
[2022-03-01 11:55] LABS: Anion Gap 6 mmol/L (8-16); Blood Urea Nitrogen 22 mg/dL (9-20); Calcium 9.7 mg/dL (8.4-10.2); Carbon Dioxide 25 mmol/L (22-30); Chloride 107 mmol/L (98-107); Estimated CRCL calculation 42 ml/min; Estimated Glomerular Filt Rate 57; Glucose 106 mg/dL (65-110); Potassium 4.3 mmol/L (3.4-5.0); Sodium 138 mmol/L (137-145)
== END 2022-03-01 15:30 | disposition hospice, home (50) ==
PROVIDERS: Physician Assistant; Emergency Provider Emergency Medicine; PCP Family Medicine
DX: S46.012A Strain of muscle(s) and tendon(s) of the rotator cuff of left shoulder, initial encounter (principal); N39.0 Urinary tract infection, site not specified; D64.9 Anemia, unspecified; F03.90 Unspecified dementia, unspecified severity, without behavioral disturbance, psychotic disturbance, mood disturbance, and anxiety; I10 Essential (primary) hypertension; E53.8 Deficiency of other specified B group vitamins; M19.012 Primary osteoarthritis, left shoulder; M17.0 Bilateral primary osteoarthritis of knee; M16.0 Bilateral primary osteoarthritis of hip; Z86.718 Personal history of other venous thrombosis and embolism; Z87.442 Personal history of urinary calculi; Z86.73 Personal history of transient ischemic attack (TIA), and cerebral infarction without residual deficits; Z79.01 Long term (current) use of anticoagulants; Z96.0 Presence of urogenital implants; M47.812 Spondylosis without myelopathy or radiculopathy, cervical region; M47.814 Spondylosis without myelopathy or radiculopathy, thoracic region; N13.30 Unspecified hydronephrosis; M47.816 Spondylosis without myelopathy or radiculopathy, lumbar region; W19.XXXA Unspecified fall, initial encounter
CPT/HCPCS: 36415; 70450; 71045; 72125; 72128; 72131; 73030; 73521; 73564; 80048; 81001; 85025; 87077; 87086; 87186; 96365; 99284; A4565; J0696

== ENCOUNTER → 2023-10-10 07:03 | Outpatient (REF) | payer MEDICARE, SELFPAY | LOC: ANHLAB 07:03 | PROVIDERS: PCP Family Medicine; Visit Provider Physician Assistant Surgical | DX: C44.329 Squamous cell carcinoma of skin of other parts of face (principal) | CPT/HCPCS: 88305 ==